=== PATIENT | female | born 1975 | race Caucasian/White ===

== ENCOUNTER 2017-09-29 05:51 | Day surgery (SDC) | payer OTHER, SELFPAY ==
[2017-09-25 15:22] LABS: Hematocrit 40.5 % (37-47); Hemoglobin 13.9 g/dl (12.0-15.0); Mean Corp Hgb Conc 34.3 g/gl (32-36); Mean Corpuscular Hgb 31.1 pg (27.0-32.0); Mean Corpuscular Volume 90.6 fL (81-99); Mean Platelet Vol. 11.2 fl (6.2-12.0); Platelet Count 184 K/mm3 (150-450); RBC Distribution Width SD 39.1 fl (35.1-43.9); Red Blood Count 4.47 M/mm3 (4.2-5.4); White Blood Count 5.7 K/mm3 (4.4-11.0)
[2017-09-25 15:56] LABS: Pregnancy, Serum, hCG Quali. NEGATIVE Negative (0-9 Nonpreg)
[2017-09-25 16:08] LABS: Scan Indicated on CBC? Y/N NO
--- NOTE | 2017-09-28 22:07 | HP.PCM_ITS ---
History and Physical Date of Admission: 09/29/17 Surgical History and Physical Sheeba Rose, a 42 year old female 2 0 1 0 2, presents for HTA, Hysteroscopy and D and C on September 29, 2017 at 7:30. -- Heavy Menses -- Menses have been getting heavier and heavier. Wants to proceed with ablation if this is an option. Recent TFTs were normal. Recent EMBx and U/S OK. MEDICATIONS HISTORY: Patient is also takin. Dexilant 60 mg capsule, delayed release, 1 PO QD ALLERGIES: NKA Infections - Chicken pox childhood Illnesses - mitral valve prolapse Accidents - no injuries of consequence Hospitalizations - Childbirth ; Review of Systems: GENERAL - Denies fever, or chills SKIN - Denies skin changes EYES - Denies visual changes EARS - Denies difficulty hearing NOSE - Denies nasal congestion or bleeding MOUTH - Denies sore throat or difficulty swallowing NECK - Denies pain or swelling RESPIRATORY - Denies shortness of breath or wheezing CARDIOVASCULAR - Denies palpitations or chest pain GASTROINTESTINAL - Denies nausea, vomiting, diarrhea, constipation GENITOURINARY - Denies dysuria, frequency of urination, incontinence of urine MUSCULOSKELETAL - Denies joint or muscle pain NEUROLOGICAL - Denies localized numbness or weakness PSYCHIATRIC - Denies depression or anxiety ENDOCRINE - Denies heat or cold intolerance, weight loss or gain HEMATO-IMMUNOLOGIC - Denies excessive bleeding with cuts SOCIAL HISTORY: Alcohol Use - denies use Smoking - denies use Diet - balanced Diet Lifestyle - Exercise - regular Seat Belt Use - always 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. 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 Sibling(s): Multiple Births. Father: Heart Disease and MA. Maternal Grandmother: DM II. MENSTRUAL HISTORY: LMP Known?- DefiniteAmount/Duration - 4-5 DAYS, Regularity - Regular, Frequency - 28 days, LMP - 09/16/17, Age Onset Menarche - 13 PAST PREGNANCIES: Total Pregnancies - 3; Full Term Pregnancies - 2; Premature - 0; Abortions, Induced - 0; Abortions, Spontaneous - 1; Ectopics - 0; Multiple Births - 0; Living Children - 2 SURGICAL HISTORY: 1. 10/02/2000 Exp. Lap. ; - Endometriosis 2. 04/16/2002 Suction D ; Patria Elder M.D. - Missed Ab 3. 04/16/2005 R C/S ; Patria Elder M.D. - repeat 4. 03/17/2003 ; Patria Elder M.D. - PHYSICAL EXAM BP- 124/62 Sitting, Right arm, regular cuff Weight- 158.27635 lbs Height- 65.00 inch BMI:26.35 CONSTITUTIONAL - NAD, well nourished, and well developed SKIN - No rash, lesions, or ulcers HEENT - Normocephalic, PERRLA, EOMI NECK - No nodes, no nuchal rigidity and thyroid normal size and texture LYMPH NODES - Palpation of lymph nodes in neck and groins within normal limits LUNGS - CTA x2 without wheezes, crackles or rales CARDIAC - Regular rate and rhythm without rubs, murmurs, or gallops BREAST - No dominant masses, no tenderness, no axillary adenopathy, no nipple discharge, no skin changes ABDOMEN - Without hepatosplenomegaly, distention, masses, rebound, or guarding; normal bowel sounds; no hernias EXTREMITIES - No edema or calf tenderness NEUROLOGICAL - Cranial nerves II-XII grossly intact PSYCHIATRIC - A and O to time, place, person, mood and affect External Genital Vagina - non-tender without lesions Urethra/Urethral Meatus - non-tender Bladder - non-tender Vagina - vaginal lópez are pink and moist without loss of rugae and no evidence of atropy Cervix - without cervical motion tenderness and has normal size and features without evident lesions Uterus - 5-6 cm in size, mobile and nontender Adnexa - clear without masses or tenderness Pap - done -- Reflex to ASCUS, LSIL, KARRIE ASSESSMENT/PLAN:Menorrhagia Denies bleeding between menses. Pelvic u/s and EMBx ok. Discussed RBAs and all questions answered.
[2017-09-29 06:20] VITALS: BP 128/75; PULSE 78; RESP 16; TEMP 36.6; O2SAT 100; BMI 25.8
--- NOTE | 2017-09-29 07:30 | EMB_PTH ---
PATIENT: YOANDY GATES [place] [facility] [place][id number] AGE/SX: 42/F ROOM: RE09/29/[address]: Dr. Osmar Vee MD : 1975 BED: DIS: 09/29/2017 SPEC #: [id number] RECD: 09/29/17 10:05 STATUS: PAUL RADHA #: [id number] MARAH: 09/29/17 07:[address]: Osmar Vee DEPT: SURGICAL PATHOLOGY RECD BY: Yasir Torres ENTERED: 09/29/17 10:06 SP TYPE: ENDOM BX/C KARMA DR: Dr. Gustabo Cummins, DO Tissues: Endometrium, NOS Procedures: Surgery Specimen Level IV HEADER OPERATION: Hysteroscopy, dilation and curettage, hydrothermal ablation PRE-OP DIAGNOSIS: Menorrhagia TISSUE SUBMITTED: Endometrial curettings MICROSCOPIC DIAGNOSIS Endometrial curettings: Mildly disordered proliferative endometrium. SJ:yoav 2/27/18 COMMENT Please make reference to previous specimen ([id number]) endometrium, biopsy with diagnosis of secretory endometrium. MICROSCOPIC DESCRIPTION Slides are reviewed. GROSS DESCRIPTION Received in fixative is one container labeled with the patient's name and designated endometrial curettings. The specimen consists of multiple fragments of hemorrhagic soft tissue mixed with mucoid tissue that in aggregate measure 4 x 3 x 0.2 cm. The entire specimen is submitted in two cassettes. / SJ:rg 09/29/17 TC:5 CPT: 96959
--- NOTE | 2017-09-29 07:40 | OP.PCM_ITS ---
Operative Report Date of Procedure: 09/29/17 Surgeon: Osmar Vee MD, FACOG Anesthesia: Susanne Trinidad CRNA Type of anesthesia: General LMA Procedure: Diagnostic Hysteroscopy, Dilation and Curettage, Hydrothermal Ablation Pre-op: Menorrhagia Post-Op: Menorrhagia Findings: 8 cm EM cavity with normal appearing endometrium without polyps or fibroids noted Indication: This is a 42 year old patient who has been having problems with extremely heavy menses. Conservative measures have not been helpful. Endometrial sampling was benign and pelvic ultrasound showed that ablation may be helpful. Pt has been counseled regarding the risks, benefits and alternatives of this procedure and all questions answered. She understands that only about half of patients will have amenorrhea after this procedure. Procedure: Patient taken to the operating room where after induction of general anesthesia the patient was prepped and draped in the usual sterile fashion. Bladder was drained of urine with a catheter. Anterior cervix grasped and cervix was dilated to about 17 Serbian size. Hysteroscopic hydrothermal ablation (HTA) unit was place in the cervix and the above findings were noted. HTA unit was removed and the uterus was gently curretted removing all contents. An HTA ablation cycle was then carried out at about 90 degrees Centigrade for 10 minutes with virtually no fluid loss during the procedure. After an appropriate cool down the HTA unit was removed with minimal bleeding noted. The patient tolerated the procedure well and was taken to the recovery room in satisfactory condition. Sponge, instruments and needle counts were all correct. There were no apparent complications of the surgery. Cefotan 2 gms IV was given prior to the procedure. Estimated Blood Loss: Minimal Specimen to Pathology: Endometrial Curettings
--- NOTE | 2017-09-29 07:41 | PCM.DC.D&C ---
Discharge Diet: No Restrictions Discharge Activity: Return to Normal Activity, May Shower, May Take a Tub Bath Call your doctor if you observe: Fever of 101 or Higher, Inability to urinate, Inability to have a bowel movement, Using more than one pad per hour Allergies/Adverse Reactions: Allergies No Known Allergies Allergy (Verified 09/22/17 14:01) Medications to take at Discharge Dexlansoprazole [Dexilant] 60 mg PO LUNCH 09/22/17 Oxycodone [Oxyir] 5 mg PO Q6H PRN PRN 7 Days #10 tab 09/29/17 The following prescriptions were given: Oxycodone [Oxyir] 5 mg PO Q6H PRN PRN 7 Days #10 tab PRN Reason: Severe Pain (-05/13) Primary Care Physician: Gustabo Cummins DO [Primary Care Provider] - Please Follow Up With: Osmar Vee MD When: 2-3 weeks
[2017-09-29 08:23] VITALS: BP 128/75; BP 128/88; PULSE 64; RESP 18; TEMP 36.1; O2SAT 100
[2017-09-29 08:30] VITALS: BP 115/81; BP 128/75; PULSE 79; RESP 18; O2SAT 95
[2017-09-29 08:45] VITALS: BP 122/84; BP 128/75; PULSE 82; RESP 18; O2SAT 98
[2017-09-29 08:55] VITALS: BP 124/88; BP 128/75; PULSE 64; RESP 18; TEMP 36.1; O2SAT 100
[2017-09-29 09:48] VITALS: BP 128/75
== END 2017-09-29 10:10 | disposition home or self-care (01) ==
LOC: SDC 05:54 → AC 05:54
PROVIDERS: Family Provider Family Medicine; PCP Family Medicine; Visit Provider Obstetrics & Gynecology
PROC: 0U5B8ZZ Destruction of Endometrium, Via Natural or Artificial Opening Endoscopic (ICD-10-PCS; CPT 58563; principal; 2017-09-29 07:15)
DX: N85.01 Benign endometrial hyperplasia (principal); N85.8 Other specified noninflammatory disorders of uterus; N92.0 Excessive and frequent menstruation with regular cycle; K21.9 Gastro-esophageal reflux disease without esophagitis; I34.1 Nonrheumatic mitral (valve) prolapse
CPT/HCPCS: 58563; 36415; 84703; 85027; 86850; 86900; 88305; J7120; J2405

== ENCOUNTER → 2017-10-02 16:31 | Outpatient (CLI) | payer OTHER, SELFPAY ==
[2017-10-02 18:54] LABS: CRP < 2.90 mg/L (0.0-3.0); Rheumatoid Factor < 10.0 IU/mL (<15)
[2017-10-02 18:56] LABS: Erythrocyte Sedimentation Rate 5 mm/hr (0-20)
[2017-10-06 14:20] LABS: ANTINUCLEAR ANTIBODIES DIRECT Positive (Negative)
[2017-10-09 14:13] LABS: HLA B27 Positive (.)
== END ==
PROVIDERS: Family Provider Family Medicine; PCP Family Medicine; Visit Provider Family Medicine
DX: H20.9 Unspecified iridocyclitis (principal)
CPT/HCPCS: 36415; 81374; 85652; 86038; 86140; 86431

== ENCOUNTER → 2018-01-05 10:47 | Outpatient (CLI) | payer OTHER, SELFPAY ==
--- NOTE | 2018-01-05 10:47 | DT_ITS ---
This patient was seen during an EMR downtime January 05, 2018 - January 12, 2018. This patient may have a combination of paper and electronic documentation or all paper documentation. All documentation is viewable within the e-chart portion of [facility] for each patient visit.
== END ==
PROVIDERS: Family Provider Family Medicine; PCP Family Medicine; Visit Provider Internal Medicine Rheumatology
DX: R76.8 Other specified abnormal immunological findings in serum (principal); Z79.899 Other long term (current) drug therapy
CPT/HCPCS: 36415; 83516; 86038; 86200; 86225; 86235; 86376; 86800

== ENCOUNTER → 2018-01-22 12:07 | Outpatient (CLI) | payer OTHER, SELFPAY ==
[2018-01-23 14:09] LABS: SJOGREN'S Anti-SS-A test < 0.2 AI (0.0-0.9)
[2018-01-23 14:32] LABS: SJOGREN'S Anti-SS-B test < 0.2 AI (0.0-0.9)
== END ==
PROVIDERS: Family Provider Family Medicine; PCP Family Medicine; Visit Provider Internal Medicine Rheumatology
DX: R76.8 Other specified abnormal immunological findings in serum (principal); Z79.899 Other long term (current) drug therapy
CPT/HCPCS: 86235

== ENCOUNTER → 2018-02-03 11:12 | Outpatient (CLI) | payer OTHER, SELFPAY | PROVIDERS: Family Provider Family Medicine; PCP Family Medicine; Visit Provider Family Medicine | DX: R63.1 Polydipsia (principal) | CPT/HCPCS: 36415; 83036 ==

== ENCOUNTER → 2018-02-13 14:00 | Outpatient (CLI) | payer OTHER, SELFPAY ==
[2018-02-13 15:53] LABS: Vitamin B12 915 pg/mL (211-911); Vitamin D,25 Hydroxy 19.7 ng/mL (29.95-100.01)
[2018-02-13 17:10] LABS: Ferritin 18 ng/mL (8-252); Iron 72 ug/dL (50-170); Iron Binding Capacity,Total 392 ug/dL (250-450); PERCENT IRON SATURATION 18.4 % (15.0-55.0)
== END ==
PROVIDERS: Family Provider Family Medicine; PCP Family Medicine; Visit Provider Family Medicine
DX: H20.9 Unspecified iridocyclitis (principal); M35.1 Other overlap syndromes
CPT/HCPCS: 36415; 82306; 82607; 82728; 82746; 83540; 83550

== ENCOUNTER → 2018-02-19 12:06 | Outpatient (CLI) | payer OTHER, SELFPAY ==
[2018-02-27 11:04] LABS: ACHR AB Modulating <12 % (0-20); ACHR Recep AB, Blocking 13 % (0-25); Acetylcholine Receptor Binding < 0.03 nmol/L (0.00-0.24)
== END ==
PROVIDERS: Family Provider Family Medicine; PCP Family Medicine; Visit Provider Psychiatry & Neurology Neurology
DX: R53.1 Weakness (principal)
CPT/HCPCS: 36415; 83519; 84238

== ENCOUNTER → 2018-03-04 14:55 | Outpatient (CLI) | payer OTHER, SELFPAY ==
--- NOTE | 2018-03-04 15:12 | MRI_ITS ---
STUDY: MRI THORACIC SPINE WITH AND WITHOUT CONTRAST REASON FOR EXAM: Female, 43 years old. Possible multiple sclerosis TECHNIQUE: 7 ml of Gadavist was administered intravenously for the contrast portion of the examination. COMPARISON: None. FINDINGS: Normal kyphosis of the thoracic spine. There is no substantial scoliosis. T1-2, T2-3, T3-4, T4-5, T5-6, T6-7, T7-8, T8-9, T9-10, T10-11, T11-12: Normal endplates. Normal disc hydration, heights and morphology of the corresponding intervertebral discs. Normal central canal and intervertebral neural foramina at the corresponding levels. Normal visualized thoracic cord. Normal conus medullaris that terminates at the . The soft tissue structures are unremarkable. There is no enhancing abnormality. MRI/Spine Thoracic W/WO Contrast IMPRESSION: Normal unenhanced and enhanced MRI examination of the thoracic spine. Electronically Signed: Marco Carias MD at 19:44 EDT , Service support ,
--- NOTE | 2018-03-04 15:12 | MRI_ITS ---
STUDY: MRI BRAIN WITH AND WITHOUT CONTRAST REASON FOR EXAM: Female, 43 years old. Optic neuritis facial numbness possible multiple sclerosis TECHNIQUE: Standardized multiplanar fat and water weighted pulse sequences were obtained. 7 ml of Gadavist contrast material was administered intravenously for the contrast portion of the examination. COMPARISON: None. FINDINGS: Normal size of the ventricles and extra-axial spaces for the patient's age. There are a couple of scattered tiny punctate white matter lesions bilaterally without mass effect or restricted diffusion. This could represent ischemic changes secondary to small vessel disease in patient of this age however demyelinating disease such as multiple sclerosis is not excluded Normal bilateral basal ganglia. Normal thalami. There is no extra-axial fluid accumulation. Normal flow voids within the major intracranial circulation suggesting patency by spin echo criteria. Normal venous enhancement. There is no enhancing intra-axial or extra-axial abnormality. Normal sella turcica, pituitary gland, infundibular stalk, optic chiasm and hypothalamus. Normal tectal plate and pineal gland. Normal midbrain, shana and medulla. Normal cerebellum. Normal basal cisterns. Normal bilateral temporal bones. Normal bilateral internal auditory canals. No demonstrated orbital abnormality, within the constraints of a routine brain study. Small mucous retention cyst in left maxillary sinus and mild bilateral ethmoid sinus disease Normal calvarium and skull base. Normal visualized soft tissue structures. Normal visualized upper cervical spine. MRI/Brain W/WO Contrast IMPRESSION: There are a couple of scattered tiny punctate white matter lesions bilaterally without mass effect or restricted diffusion. This is nonspecific in etiology but may be consistent with demyelinating disease such as multiple sclerosis. There are no enhancing plaques to suggest acute demyelination Electronically Signed: Marco Carias MD at 20:48 EDT , Service support ,
--- NOTE | 2018-03-04 15:12 | MRI_ITS ---
STUDY: MRI LUMBAR SPINE WITH AND WITHOUT CONTRAST REASON FOR EXAM: Female, 43 years old. Facial numbness and tingling TECHNIQUE: Standardized fat and water weighted pulse sequences were obtained in the sagittal and axial planes. 7 ml of Gadavist contrast material was administered for the contrast portion of the examination. COMPARISON: None FINDINGS: T12-L1: Normal endplates. Normal disc height, hydration and morphology. Normal bilateral facet joints. Normal central canal and bilateral lateral recesses. Normal bilateral intervertebral neural foramina. Normal lumbar lordosis. There is no substantial scoliosis. Normal conus medullaris that terminates at T12-L1 L1-2: Normal endplates. Normal disc height, hydration and morphology. Normal bilateral facet joints. Normal central canal and bilateral lateral recesses. Normal bilateral intervertebral neural foramina. L2-3: Normal endplates. Normal disc height, hydration and morphology. Normal bilateral facet joints. Normal central canal and bilateral lateral recesses. Normal bilateral intervertebral neural foramina. L3-4: Normal endplates. Normal disc height, hydration and minor annular bulge.. Mild facet arthropathy. Normal central canal. Minor bilateral recess encroachment.. Normal bilateral intervertebral neural foramina. L4-5: Normal endplates. Normal disc height, hydration and minimal annular bulge.. Bilateral facet arthropathy.. Normal central canal. Mild bilateral recess encroachment. Normal bilateral intervertebral neural foramina. L5-S1: Normal endplates. Normal disc height, desiccation and minimal annular bulge with small central annular tear and disc protrusion.. Bilateral facet arthropathy. Normal central canal and bilateral lateral recesses. Normal bilateral intervertebral neural foramina. Normal visualized sacral ala. Normal visualized paraspinous soft tissue structures. MRI/Spine Lumbar W/WO Contrast IMPRESSION: Small central disc protrusion at L5-S1 with mild facet arthropathy but no significant spinal stenosis Mild spinal stenosis at L3-4 and L4-5 secondary to minor bulging annuli and facet arthropathy Electronically Signed: Marco Carias MD at 22:29 EDT , Service support ,
--- NOTE | 2018-03-04 15:12 | MRI_ITS ---
STUDY: MRI CERVICAL SPINE WITH AND WITHOUT CONTRAST REASON FOR EXAM: Female, 43 years old. Possible multiple sclerosis TECHNIQUE: Standardized fat and water weighted pulse sequences were obtained in the sagittal and axial following I.V. administration of 7 ml of Gadavist contrast material. COMPARISON: None FINDINGS: Normal foramen magnum and brainstem-cervical cord junction. Normal craniovertebral junction. Normal anterior atlantoaxial articulation. Normal odontoid process. Normal cervical lordosis. Normal vertebral bodies and posterior osseous elements. C2-3: Normal endplates. Normal disc height, signal and morphology. Normal central canal and intervertebral neural foramina. C3-4: Normal endplates. Normal disc height, signal and morphology. Normal central canal and intervertebral neural foramina. C4-5: Normal endplates. Normal disc height, signal and morphology. Normal central canal and intervertebral neural foramina. C5-6: Normal endplates. Mildly narrowed disc height, normal signal and moderate sized central/right paracentral disc protrusion in association with tiny left posterolateral disc/osteophyte protrusion. There is narrowing of the spinal canal and mild impingement upon ventral surface of the thecal sac and cord.. There is mild to moderate left neural foraminal encroachment C6-7: Normal endplates. Normal disc height, signal and minor bulging of the disc in association with prominent left posterolateral/foraminal disc protrusion. There is mild narrowing of the central canal. Severe left neuroforaminal stenosis C7-T1: Normal endplates. Normal disc height, signal and morphology. Normal central canal and intervertebral neural foramina. Normal cervical cord. Normal visualized soft tissue structures. MRI/Spine Cervical W/WO Contrast IMPRESSION: Mild spondylosis and spinal stenosis at C5-6 and C6-7 secondary to disc disease and bony hypertrophy with findings as above No focal lesions within the cord. Electronically Signed: Marco Carisa MD at 19:52 EDT , Service support ,
== END ==
PROVIDERS: Family Provider Family Medicine; PCP Family Medicine; Visit Provider Family Medicine
DX: H46.9 Unspecified optic neuritis (principal)
CPT/HCPCS: 70553; 72156; 72157; 72158; A9585

== ENCOUNTER → 2018-03-24 06:46 | Outpatient (CLI) | payer OTHER, SELFPAY ==
--- NOTE | 2018-03-24 10:36 | NEURO ---
NCS and/or EMG Patient Report Ordering Doctor: Radha Gonzalez DATE OF SERVICE: 03/24/18 This is a bilateral upper extremity nerve conduction study and a left upper extremity EMG as well as paraspinal EMG performed on this 43-year-old female with numbness in her thumbs bilaterally beginning in January 2018. She has had an MRI of her entire neuraxis which she reports has been normal. There have been some positive rheumatologic tests however she tells me her rheumatologic space technologist does not feel that these are significant. Bilateral upper extremity sensory and motor nerve conduction study demonstrates mild prolongation of the median motor distal latencies with preservation of amplitude and conduction velocities the median sensory distal latencies are also mildly prolonged. Ulnar motor and sensory and radial sensory responses are normal. The median and ulnar F-wave latencies demonstrate mild prolongation of the median motor F wave latencies. Needle electromyography of left upper extremity is performed. Muscles evaluated included the first dorsal interosseous, abductor pollicis brevis, brachioradialis, biceps, triceps, deltoid, and left lower, middle and upper paraspinal muscles. All muscles demonstrated normal insertional activity with absence of pathologic spontaneous activity. Motor unit potential recruitment pattern and amplitude is normal in all muscles tested. 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 There is no evidence of radiculopathy or neuropathy otherwise.
--- NOTE | 2018-03-24 10:39 | NEURO_ITS ---
NCS and/or EMG Patient Report Ordering Doctor: Radha Gonzalez DATE OF SERVICE: 03/24/18 This is a bilateral upper extremity nerve conduction study and a left upper extremity EMG as well as paraspinal EMG performed on this 43-year-old female with numbness in her thumbs bilaterally beginning in January 2018. She has had an MRI of her entire neuraxis which she reports has been normal. There have been some positive rheumatologic tests however she tells me her rheumatologic optical design engineer does not feel that these are significant. Bilateral upper extremity sensory and motor nerve conduction study demonstrates mild prolongation of the median motor distal latencies with preservation of amplitude and conduction velocities the median sensory distal latencies are also mildly prolonged. Ulnar motor and sensory and radial sensory responses are normal. The median and ulnar F-wave latencies demonstrate mild prolongation of the median motor F wave latencies. Needle electromyography of left upper extremity is performed. Muscles evaluated included the first dorsal interosseous, abductor pollicis brevis, brachioradialis, biceps, triceps, deltoid, and left lower, middle and upper paraspinal muscles. All muscles demonstrated normal insertional activity with absence of pathologic spontaneous activity. Motor unit potential recruitment pattern and amplitude is normal in all muscles tested. 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 There is no evidence of radiculopathy or neuropathy otherwise.
== END ==
PROVIDERS: Family Provider Family Medicine; PCP Family Medicine; Visit Provider Clinical Nurse Specialist Acute Care
DX: M54.12 Radiculopathy, cervical region (principal); R29.898 Other symptoms and signs involving the musculoskeletal system
CPT/HCPCS: 95886; 95913

== ENCOUNTER → 2018-04-27 10:49 | Outpatient (CLI) | payer OTHER, SELFPAY ==
--- NOTE | 2018-04-27 10:52 | RAD_ITS ---
STUDY: X-RAY - PELVIS REASON FOR EXAM: Female, 43 years old. Inflammatory polyarthropathy TECHNIQUE: One view of the pelvis was obtained. COMPARISON: None. FINDINGS: There is a non-specific bowel gas pattern. Normal visualized soft tissue structures. Normal bilateral iliac wings, sacroiliac joints and visualized sacrum. Normal visualized bilateral superior and inferior pubic rami. Normal pubic symphysis. Normal ischial tuberosities. Normal visualized right femoral head. Normal right acetabulum. Normal right hip joint. Normal visualized left femoral head. Normal left acetabulum. Normal left hip joint. RAD/Pelvis 1 or 2 Views IMPRESSION: Normal x-ray examination of the pelvis. Electronically Signed: Trent Cade MD at 16:58 EDT , Service support ,
[2018-04-27 11:55] LABS: Absolute Lymphocyte Count 1.43 X10^3/ul (0.83-4.51); Absolute Neutrophil Count 3.6 X10^3/uL (2.0-7.7); Basophil# 0.01 X10^3/uL; Basophil% 0.2 % (0-1); Eosinophil# 0.12 X10^3/uL; Eosinophils% 2.2 % (0-5); Hematocrit 41.3 % (37-47); Hemoglobin 13.8 g/dl (12.0-15.0); Lymphocyte # 1.43 X10^3/ul (4.0); Lymphocyte % 26.1 % (19-41); Mean Corp Hgb Conc 33.4 g/gl (32-36); Mean Corpuscular Hgb 30.7 pg (27.0-32.0); Mean Corpuscular Volume 91.8 fL (81-99); Mean Platelet Vol. 11.3 fl (6.2-12.0); Monocyte# 0.34 X10^3/uL; Monocyte% 6.2 % (0-10); Neutrophil # 3.56 X10^3/uL (2.7-7.7); Neutrophil % 65.1 % (47-70); Platelet Count 192 K/mm3 (150-450); RBC Distribution Width CV 12.2 % (11.6-14.6); RBC Distribution Width SD 41.2 fl (35.1-43.9); White Blood Count 5.5 K/mm3 (4.4-11.0)
[2018-04-27 11:56] LABS: POSITIVE COUNT NO; POSITIVE DIFFERENTIAL NO; POSITIVE MORPHOLOGY NO
[2018-04-27 11:57] LABS: Color, Urine Straw (Yellow); Glucose, Dipstick Normal (Normal); Ketone-Dipstick Negative (Negative); Leukocyte Esterase-Dipstick Negative /ul (Negative); Nitrite-Dipstick Negative (Negative); Occult Blood-Urine Negative /ul (Negative); Protein-Dipstick Negative (Negative); Urine Bilirubin Dipstick Negative (Negative); Urine Clarity Sl. Cloudy (Clear); Urine Urobilinogen Normal (Normal); Urine pH 6.5 (5.0 - 8.0)
[2018-04-27 12:04] LABS: Erythrocyte Sedimentation Rate 2 mm/hr (0-20); Prothrombin Time (Protime)PT. 13.6 SECONDS (11.7-14.9)
[2018-04-27 12:05] LABS: Partial Thromboplast Time 32.6 Seconds (24.1-36.2)
[2018-04-27 12:10] LABS: Protein, Urine (Random) < 6.0 mg/dL (<11.9)
[2018-04-27 12:35] LABS: ALB/GLOB Ratio 1.1 RATIO (0.9-2.4); AST(SGOT) 19 U/L (15-37); Alanine Aminotransfer ALT/SGPT 24 U/L (13-56); Albumin, Serum 3.9 g/dL (3.2-5.0); Alkaline Phosphatase 49 U/L (45-117); Anion Gap 3 (5-15); BUN 15 mg/dL (7-18); BUN/Creat Ratio 18.7 RATIO (10-20); CRP < 2.90 mg/L (0.0-3.0); Calcium,Total 8.5 mg/dL (8.5-10.1); Chloride 106 mmol/L (98-107); EST Glomerular Filtration Rate 83 mL/min (>60); Est Glom Filt Rate - Afr Amer 100 mL/min (>60); Globulin 3.7 g/dL (2.2-4.2); Glucose 72 mg/dL (74-106); Potassium 3.7 mmol/L (3.5-5.1); Protein, Total 7.6 g/dL (6.4-8.2); Rheumatoid Factor < 10.0 IU/mL (<15); Sodium Level 138 mmol/L (136-145)
[2018-04-28 14:07] LABS: Anti-Centromere B Ab <0.2 AI (0.0-0.9); Anti-Jo <0.2 AI (0.0-0.9); Anti-Scleroderma-70 AB 1.2 AI (0.0-0.9); RNP Ab 1.6 AI (0.0-0.9); SJOGREN'S Anti-SS-A test < 0.2 AI (0.0-0.9); SJOGREN'S Anti-SS-B test < 0.2 AI (0.0-0.9); Smith Ab <0.2 AI (0.0-0.9)
[2018-04-29 03:07] LABS: Complement C3 119 mg/dL (82-167); Dilute Prothrombin Time (dPT) 45.9 sec (0.0-55.0); Dilute Russell Viper Venom 35.8 sec (0.0-47.0); Hexagonal Phase Phospholipid 2 sec (0-11); PTT-LA 36.4 sec (0.0-51.9); Thrombin Time 18.6 sec (0.0-23.0); Thrombin Time 18.7 sec (0.0-23.0); dPT Confirm Ratio 0.99 Ratio (0.00-1.40)
[2018-04-29 09:10] LABS: CCP IgG Antibodies 5 units (0-19); HEPATITIS B SURFACE AG Negative (Negative); Hep B Surface Antibodies Reactive (.); Hep C Antibodies <0.1 s/co ratio (0.0-0.9); Interpretation Comment: (.)
[2018-04-29 09:19] LABS: ANTINUCLEAR ANTIBODIES DIRECT Positive (Negative); Anti-dsDNA Ab 3 IU/mL (0-9)
== END ==
PROVIDERS: Family Provider Family Medicine; PCP Family Medicine; Visit Provider Internal Medicine Rheumatology
DX: M06.4 Inflammatory polyarthropathy (principal); M35.1 Other overlap syndromes; K21.9 Gastro-esophageal reflux disease without esophagitis; Q66.7 Congenital pes cavus; H20.12 Chronic iridocyclitis, left eye
CPT/HCPCS: 36415; 72170; 80053; 81002; 82570; 84156; 85025; 85598; 85610; 85652; 85670; 85730; 86038; 86140; 86160; 86200; 86225; 86235; 86431; 86706; 86803; 87340

== ENCOUNTER → 2018-08-20 07:14 | Outpatient (CLI) | payer OTHER, SELFPAY ==
--- NOTE | 2018-08-20 07:16 | BI_ITS ---
MAMMOGRAPHY - BILATERAL SCREENING REASON FOR EXAM: Female, 43 years old. Routine annual screening examination. PERTINENT HISTORY: Grandmother with breast cancer. Aunt with breast cancer. TECHNIQUE: Digital bilateral breast jessa (3D mammographic acquisition) in the CC and MLO projections. 2-D mediolateral oblique (MLO) and craniocaudad (CC) views of both breasts were obtained. CAD: Full Field Digital Mammography with Computer Added Detection was performed. COMPARISON: Comparison is made with prior study dated August 19, 2017 and June 07, 2016. FINDINGS: Breast Composition: There are scattered areas of fibroglandular density. There are no dominant masses or suspicious calcifications. No other significant abnormalities are identified. There has been no significant change since the prior study. BI/SCREENING MAMM (CAD), BILAT IMPRESSION: Stable bilateral screening mammogram. Yearly follow-up mammogram recommended. (A) ASSESSMENT CATEGORY: BIRADS Category 1: Negative. A letter regarding these results will be sent to the patient by the facility within 30 days. Approximately 10% of breast cancers are not detected by mammography. A normal mammogram should not delay biopsy of a clinically suspicious abnormality. [id number] Electronically Signed: Victorino Qureshi MD at 10:12 EST Tel [phone], Service support ,
--- OUTSIDE RECORDS SUMMARY | 2018-10-24 19:43 | XMS RPT_ITS ---
:1975 Author Organization [place] Support Name Relationship Address Phone KODYWILIAN Unavailable [address] + [place] [address] WC Unavailable [address] + [place] [address] WILIAN ROSE Unavailable [address] + [place] [address] [facility] Unavailable [address] + [place] [address] WILIAN ROSE Unavailable [address] + [place] [address] [facility] Unavailable [address] + [place] [address] WILIAN ROSE Unavailable [address] + [place] [address] [facility] Unavailable [address] + [place] [address] WILIAN ROSE Unavailable [address] + [place] [address] [facility] Unavailable [address] + [place] [address] WILIAN ROSE Unavailable [address] + [place] [address] [facility] Unavailable [address] + [place] [address] WILIAN ROSE Unavailable [address] + [place] [address] [facility] Unavailable [address] + [place] [address] WILIAN ROSE Unavailable [address] + [place] [address] [facility] Unavailable [address] + [place] [address] DANIELEKaylanWILIAN Unavailable [address] + [place] [address] [facility] Unavailable [address] + [place] [address] DANIELEKaylanWILIAN Unavailable [address] + [place] [address] WC Unavailable [address] + [place] [address] KODYWILIAN Unavailable [address] + [place] [address] [facility] Unavailable [address] + [place] [address] KODYWILIAN Unavailable [address] + [place] [address] WC Unavailable [address] + [place] [address] WILIAN ROSE Unavailable [address] + [place] [address] WC Unavailable [address] + [place] [address] DANIELEKaylanWILIAN Unavailable [address] + [place] [address] WC Unavailable [address] + [place] [address] DANIELEKaylanWILIAN Unavailable [address] + [place] [address] WC Unavailable [address] + [place] [address] Care Team Providers Name Role Phone Osmar Vee Attending Unavailable Osmar Vee Referring Unavailable Malys, Lesli Primary Care Unavailable Lesli Burnham Attending Unavailable Malys, Lesli Primary Care Unavailable Malys, Lesli Referring Unavailable Osmar Vee Attending Unavailable Osmar Vee Referring Unavailable Gustabo Cummins Primary Care Unavailable Candelario Tang Attending Unavailable Placido, Gustabo Referring Unavailable Placido, Gustabo Primary Care Unavailable Malys, Lesli Attending Unavailable Placido, Gustabo Primary Care Unavailable Malys, Lesli Referring Unavailable Vellanki, Arianna Attending Unavailable Vellanki, Arianna Referring Unavailable Malys, Lesli Primary Care Unavailable REBA, LELA Attending Unavailable BRITTON, LELA Referring Unavailable Placido, Gustabo Primary Care Unavailable REBA, LELA Attending Unavailable BRITTON, LELA Referring Unavailable Placido, Gustabo Primary Care Unavailable Malys, Lesli Attending Unavailable Malys, Lesli Referring Unavailable Malys, Lesli Primary Care Unavailable ASSESSMENT, HEALTH RISK Attending Unavailable ASSESSMENT, HEALTH RISK Referring Unavailable Malys, Lesli Primary Care Unavailable Malys, Lesli Attending Unavailable Malys, Lesli Referring Unavailable Malys, Lesli Primary Care Unavailable Ernesto, Mustapha S. Attending Unavailable Ernesto, Mustapha S. 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, Community unspecified / Hospital E55.9(ICD-10) Repository 04/27/2018 Unknown 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, 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 / Community M35.1(ICD-10) Hospital Repository 04/27/2018 Unknown L21.9 - Seborrheic Vellanki, Arianna Active [facility] dermatitis, Community unspecified / Hospital L21.9(ICD-10) Repository 04/27/2018 Unknown 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, 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 / Community Q66.7(ICD-10) Hospital Repository 04/27/2018 Unknown 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, 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, left Community eye / H20.12(ICD-10) Hospital Repository 03/05/2018 Unknown R53.1 - Weakness / Ernesto, Active [facility] R53.1(ICD-10) [facility] Hospital Repository 02/13/2018 Unknown 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, Lesli Active [facility] iridocyclitis / [facility] H20.9(ICD-10) Hospital Repository 02/03/2018 Unknown R63.1 - Polydipsia / Malys, Lesli Active [facility] R63.1(ICD-10) [facility] Hospital Repository 01/28/2018 Unknown R76.8 - Other LELA BRITTON Active [facility] specified abnormal [facility] findings in serum / Repository R76.8(ICD-10) 09/29/2017 Unknown G89.18 - Other acute Osmar Vee Active [facility] postprocedural pain [facility] / G89.18(ICD-10) Hospital Repository PROCEDURES PROCEDURES No Procedure Records FoundRESULTS RESULTS CBC W/DIFF, AUTOMATED Collected: 08/28/2018 Status: F Source: [place] 7:20 AM [facility] REPOSITORY TYPE CODE TESTS RESULT OUT OF RANGE REFERENCE UNITS LAB L100.1000 4.4-11.0 K/mm3 Normal WBC 4.8 LAB L100.1200 4.2-5.4 M/mm3 Normal RBC 4.43 LAB L100.1300 12.0-15.0 g/dl Normal HGB 13.7 LAB L100.1400 37-47 % Normal HCT 41.1 LAB L100.1500 81-99 fL Normal MCV 92.8 LAB L100.1600 27.0-32.0 pg Normal MCH 30.9 LAB L100.1700 32-36 g/gl Normal MCHC 33.3 LAB L100.1810 11.6-14.6 % Normal RDW CV 12.2 LAB L100.1820 35.1-43.9 fl Normal RDW SD 41.3 LAB L100.1900 150-450 K/mm3 Normal PLT 174 LAB L100.2000 6.2-12.0 fl Normal MPV 11.3 LAB L100.2100 47-70 % Normal NEUT% 60.5 LAB L100.2200 19-41 % Normal LY% 30.1 LAB L100.2300 0-10 % Normal MONO% 7.3 LAB L100.2400 0-5 % Normal EO% 1.7 LAB L100.2500 0-1 % Normal BASO% 0.4 LAB L100.2550 0.0-0.9 % Normal IM GRAN % 0.000 Result Comment: IG% - Immature Granulocytes (promyelocytes, myelocytes and metamyelocytes) > 1% indicates that a LEFT SHIFT is Present. LAB L100.2620 2.0-7.7 X10 3/uL Normal Absolute Neut 2.9 LAB L100.2720 0.83-4.51 X10 3/ul Normal Absolute Lymph 1.45 Performed By: #### L100.0100 #### [facility] [address] [place], [address] URINALYSIS, ROUTINE Collected: 08/28/2018 Status: F Source: [place] ([place]) 7:20 AM [facility] REPOSITORY Order Comment: How was Urine Obtained? CLEAN CATCH TYPE CODE TESTS RESULT OUT OF RANGE REFERENCE UNITS LAB L400.3000 Yellow COLOR Normal Yellow LAB L400.3050 Clear Normal CLARITY Sl. Cloudy LAB L400.3200 Normal mg/dl Normal GLUCOSE, UR Normal LAB L400.3300 Negative mg/dL Normal BILIRUBIN URINE Negative LAB L400.3400 Negative mg/dl Normal KETONE UR Negative LAB L400.3465 1.002-1.030 Normal SP.GR. DIPSTX 1.010 LAB L400.3550 5.0 - 8.0 pH UR Normal 7.0 LAB L400.3600 Negative mg/dl PROT Normal DIPSTX Negative LAB L400.3700 Normal mg/dl Normal UROBILI Normal LAB L400.3750 Negative Normal NITRITE UR Negative LAB L400.3780 Negative /ul Normal OCCULT BLOOD-UR Negative LAB L400.3800 Negative /ul High LEUK 25 ESTERASE Performed By: #### L400.2010 #### [facility] [address] [place], [address] PROTEIN+CREATININE Collected: Status: F Source: [place] RATIO,URINE 08/28/2018 7:20 AM [facility] REPOSITORY TYPE CODE TESTS RESULT OUT OF RANGE REFERENCE UNITS LAB L501.1200 NO RANGE EST. mg/dL Normal UR CREAT 236.00 LAB L501.1930 <11.9 mg/dL High 26.5 PROTEIN,UR.R AN. LAB L501.1940 0-200 mg/g CRE Normal PROT:CRE 112 RATIO Performed By: #### L501.0900 #### [facility] [address] [place], [address] COMPREHENSIVE METABOLIC Collected: 08/28/2018 Status: F Source: [place] 7:20 AM [facility] REPOSITORY TYPE CODE TESTS RESULT OUT OF RANGE REFERENCE UNITS LAB L501.0100 74-106 mg/dL Normal GLU 77 Result Comment: Please note revised GLUCOSE reference range effective 2017. LAB L501.1000 7-18 mg/dL Normal BUN 13 LAB L501.1100 0.55-1.02 mg/dL Normal CREAT,SERUM 0.92 Result Comment: The validity of the calculated GFR AND GFRAA in patients over 70 years has not been determined. Clinical correlation is essential. LAB L501.1110 >60 mL/min Normal EST GFR 71 Result Comment: Non- GFR Calc LAB L501.1115 >60 mL/min Normal EST GFR - AA 86 Result Comment: GFR Calc LAB L501.1300 10-20 RATIO Normal BUN/CRE 14.2 LAB L501.1500 6.4-8.2 g/dL T Normal PROT 7.3 LAB L501.1800 3.2-5.0 g/dL Normal ALB 3.7 LAB L501.1950 2.2-4.2 g/dL Normal GLOB 3.6 LAB L501.2000 0.9-2.4 RATIO Normal A/G 1.0 LAB L501.2200 8.5-10.1 mg/dL Low CA 8.4 LAB L501.4100 15-37 U/L Low AST 10 LAB L501.4305 45-117 U/L Low ALK P 43 LAB L501.4405 13-56 U/L Normal ALT 19 LAB L501.4600 0.20-1.00 mg/dL T Normal BILI 0.50 LAB L501.5300 136-145 mmol/L NA Normal 142 LAB L501.5600 3.5-5.1 mmol/L K Normal 3.7 LAB L501.5900 98-107 mmol/L High CL 108 LAB L501.6100 21.0-32.0 mmol/L Normal CO2 26.0 LAB L501.6200 5-15 Normal GAP 8 Performed By: #### L500.4050 #### [facility] [address] [place], [address] VITAMIN D,25 HYDROXY Collected: 08/21/2018 Status: F Source: [place] 7:41 AM [facility] REPOSITORY TYPE CODE TESTS RESULT OUT OF RANGE REFERENCE UNITS LAB L506.1000 29.95-100.01 ng/mL Normal Vitamin D 87.0 25-OH Result Comment: Vitamin D 25(OH) Status Range Deficiency <20 ng/mL (50nmol/L) Insuffciency 20 - 30 ng/mL (50 - 75 nmol/L) Sufficiency 30 - 100 ng/mL (75 - 250 nmol/L) Toxicity >100 ng/mL (>250 nmol/L) Performed By: #### L506.1000 #### [facility] [address] [place], [address] SCREENING MAMM (CAD), Observed: 08/20/2018 Status: F Source: [place] BILAT 7:16 AM [facility] REPOSITORY [facility] [address] [place] [address] SCREENING MAMM (CAD), BILAT MR#: [id number] Acct: [id number] Name: YOANDY ROSE Rep #: [id number] : 1975 F 43 From: Victorino Qureshi MD PCP: Lesli Burnham DO Status: [facility] Study: SCREENING MAMM (CAD), BILAT Date of Exam: 08/20/18 Exam# [id number] Ordering Dr: Osmar Vee MD MAMMOGRAPHY - BILATERAL SCREENING REASON FOR EXAM: Female, 43 years old. Routine annual screening examination. PERTINENT HISTORY: Grandmother with breast cancer. Aunt with breast cancer. TECHNIQUE: Digital bilateral breast jessa (3D mammographic acquisition) in the CC and MLO projections. 2-D mediolateral oblique (MLO) and craniocaudad (CC) views of both breasts were obtained. CAD: Full Field Digital Mammography with Computer Added Detection was performed. COMPARISON: Comparison is made with prior study dated August 19, 2017 and June 07, 2016. FINDINGS: Breast Composition: There are scattered areas of fibroglandular density. There are no dominant masses or suspicious calcifications. No other significant abnormalities are identified. There has been no significant change since the prior study. BI/SCREENING MAMM (CAD), BILAT IMPRESSION: Stable bilateral screening mammogram. Yearly follow-up mammogram recommended. (A) ASSESSMENT CATEGORY: BIRADS Category 1: Negative. A letter regarding these results will be sent to the patient by the facility within 30 days. Approximately 10% of breast cancers are not detected by mammography. A normal mammogram should not delay biopsy of a clinically suspicious abnormality. [id number] Electronically Signed: Victorino Qureshi MD at 10:12 EST Tel [phone], Service support , CC: Osmar Vee MD; Lesli Burnham DO Manager Mission: Signed CBC W/DIFF, AUTOMATED Collected: 04/27/2018 Status: F Source: [place] 10:54 AM [facility] REPOSITORY TYPE CODE TESTS RESULT OUT OF RANGE REFERENCE UNITS LAB L100.1000 4.4-11.0 K/mm3 Normal WBC 5.5 LAB L100.1200 4.2-5.4 M/mm3 Normal RBC 4.50 LAB L100.1300 12.0-15.0 g/dl Normal HGB 13.8 LAB L100.1400 37-47 % Normal HCT 41.3 LAB L100.1500 81-99 fL Normal MCV 91.8 LAB L100.1600 27.0-32.0 pg Normal MCH 30.7 LAB L100.1700 32-36 g/gl Normal MCHC 33.4 LAB L100.1810 11.6-14.6 % Normal RDW CV 12.2 LAB L100.1820 35.1-43.9 fl Normal RDW SD 41.2 LAB L100.1900 150-450 K/mm3 Normal PLT 192 LAB L100.2000 6.2-12.0 fl Normal MPV 11.3 LAB L100.2100 47-70 % Normal NEUT% 65.1 LAB L100.2200 19-41 % Normal LY% 26.1 LAB L100.2300 0-10 % Normal MONO% 6.2 LAB L100.2400 0-5 % Normal EO% 2.2 LAB L100.2500 0-1 % Normal BASO% 0.2 LAB L100.2550 0.0-0.9 % Normal IM GRAN % 0.200 Result Comment: IG% - Immature Granulocytes (promyelocytes, myelocytes and metamyelocytes) > 1% indicates that a LEFT SHIFT is Present. LAB L100.2620 2.0-7.7 X10 3/uL Normal Absolute Neut 3.6 LAB L100.2720 0.83-4.51 X10 3/ul Normal Absolute Lymph 1.43 Performed By: #### L100.0100, L101.9900 #### [facility] [address] [place], [address] ERYTHROCYTE SED RATE Collected: 04/27/2018 Status: F Source: [place] 10:54 AM [facility] REPOSITORY TYPE CODE TESTS RESULT OUT OF RANGE REFERENCE UNITS LAB L102.0000 0-20 mm/hr Normal SED RATE 2 Performed By: #### L100.0100, L101.9900 #### [facility] [address] [place], [address] URINALYSIS, ROUTINE Collected: 04/27/2018 Status: F Source: [place] (DIPST[place]) 10:54 AM [facility] REPOSITORY Order Comment: How was Urine Obtained? CLEAN CATCH TYPE CODE TESTS RESULT OUT OF RANGE REFERENCE UNITS LAB L400.3000 Yellow COLOR Normal Straw LAB L400.3050 Clear Normal CLARITY Sl. Cloudy LAB L400.3200 Normal mg/dl Normal GLUCOSE, UR Normal LAB L400.3300 Negative mg/dL Normal BILIRUBIN URINE Negative LAB L400.3400 Negative mg/dl Normal KETONE UR Negative LAB L400.3465 1.002-1.030 Normal SP.GR. DIPSTX 1.010 LAB L400.3550 5.0 - 8.0 pH UR Normal 6.5 LAB L400.3600 Negative mg/dl PROT Normal DIPSTX Negative LAB L400.3700 Normal mg/dl Normal UROBILI Normal LAB L400.3750 Negative Normal NITRITE UR Negative LAB L400.3780 Negative /ul Normal OCCULT BLOOD-UR Negative LAB L400.3800 Negative /ul LEUK Normal ESTERASE Negative Performed By: #### L400.2010 #### [facility] [address] [place], [address] PROTHROMBIN TIME W/INR Collected: 04/27/2018 Status: F Source: [place] 10:54 AM [facility] REPOSITORY TYPE CODE TESTS RESULT OUT OF RANGE REFERENCE UNITS LAB L300.4150 11.7-14.9 SECONDS Normal PROTIME 13.6 LAB L300.4200 Normal INR 1.0 Performed By: #### L300.3900, L300.4310 #### [facility] [address] [facility]. [facility] [address] PARTIAL THROMBOPLAST Collected: 04/27/2018 Status: F Source: [facility] 10:54 AM [facility] REPOSITORY TYPE CODE TESTS RESULT OUT OF RANGE REFERENCE UNITS LAB L300.4310 24.1-36.2 Seconds Normal PTT 32.6 Performed By: #### L300.3900, L300.4310 #### [facility] [address] PROTEIN+CREATININE Collected: Status: F Source: [place] RATIO,URINE 04/27/2018 10:54 AM [facility] REPOSITORY TYPE CODE TESTS RESULT OUT OF RANGE REFERENCE UNITS LAB L501.1200 NO RANGE EST. mg/dL 18.20 Normal UR CREAT LAB L501.1930 <11.9 mg/dL < 6.0 Normal PROTEIN,UR. RAN. LAB L501.1940 0-200 mg/g CRE Test Normal not performed PROT:CRE RATIO Performed By: #### L501.0900 #### [facility] [address] [facility]. [facility] [address] COMPREHENSIVE METABOLIC Collected: 04/27/2018 Status: F Source: [place] PROFIL 10:54 AM [facility] REPOSITORY TYPE CODE TESTS RESULT OUT OF RANGE REFERENCE UNITS LAB L501.0100 74-106 mg/dL Low GLU 72 Result Comment: Please note revised GLUCOSE reference range effective 2017. LAB L501.1000 7-18 mg/dL Normal BUN 15 LAB L501.1100 0.55-1.02 mg/dL Normal CREAT,SERUM 0.80 Result Comment: The validity of the calculated GFR AND GFRAA in patients over 70 years has not been determined. Clinical correlation is essential. LAB L501.1110 >60 mL/min Normal EST GFR 83 Result Comment: Non- GFR Calc LAB L501.1115 >60 mL/min Normal EST GFR - AA 100 Result Comment: GFR Calc LAB L501.1300 10-20 RATIO Normal BUN/CRE 18.7 LAB L501.1500 6.4-8.2 g/dL T Normal PROT 7.6 LAB L501.1800 3.2-5.0 g/dL Normal ALB 3.9 LAB L501.1950 2.2-4.2 g/dL Normal GLOB 3.7 LAB L501.2000 0.9-2.4 RATIO Normal A/G 1.1 LAB L501.2200 8.5-10.1 mg/dL CA Normal 8.5 LAB L501.4100 15-37 U/L Normal AST 19 LAB L501.4305 45-117 U/L Normal ALK P 49 LAB L501.4405 13-56 U/L Normal ALT 24 LAB L501.4600 0.20-1.00 mg/dL T Normal BILI 0.60 LAB L501.5300 136-145 mmol/L NA Normal 138 LAB L501.5600 3.5-5.1 mmol/L K Normal 3.7 LAB L501.5900 98-107 mmol/L CL Normal 106 LAB L501.6100 21.0-32.0 mmol/L Normal CO2 29.0 LAB L501.6200 5-15 Low GAP 3 Performed By: #### L500.4050, L501.6710, L505.7010 #### [facility] [address] [place], [place], [address] CRP Collected: 04/27/2018 Status: F Source: [place] 10:54 AM [facility] REPOSITORY TYPE CODE TESTS RESULT OUT OF RANGE REFERENCE UNITS LAB L501.6710 0.0-3.0 mg/L Normal < 2.90 C-REACTIVE PROT Result Comment: C-Reactive Protein (CRP) provides useful information for the diagnosis, therapy and monitoring of inflammatory processes and associated diseases. For the evaluation of Relative Risk for Cardiovascular Disease, a High Sensitivity CRP (HSCRP) should be ordered. Performed By: #### L500.4050, L501.6710, L505.7010 #### [facility] [address] [place], [address] RHEUMATOID FACTOR Collected: 04/27/2018 Status: F Source: [place] 10:54 AM [facility] REPOSITORY TYPE CODE TESTS RESULT OUT OF RANGE REFERENCE UNITS LAB L505.7010 <15 IU/mL Normal RHEUMATOID FAC < 10.0 Performed By: #### L500.4050, L501.6710, L505.7010 #### [facility] [address] [facility] [address] [place], [place], [address] LUPUS ANTICOAGULANT COMP Collected: 04/27/2018 Status: F Source: [place] 10:54 AM [facility] REPOSITORY TYPE CODE TESTS RESULT OUT OF REFERENCE UNITS RANGE LAB L4500.0125 0.0-55.0 sec DILUTE PT (dPT) Normal 45.9 LAB L4500.0150 0.00-1.40 Ratio dPT Conf. Ratio Normal 0.99 LAB L4500.0200 0.0-23.0 sec THROMBIN TIME Normal 18.7 LAB L4500.0600 0.0-51.9 sec PTT-LA Normal 36.4 LAB L4500.1000 0.0-47.0 sec DRVVT Normal 35.8 LAB L4500.1300 . Interpretation Normal Comment: Result Comment: No lupus anticoagulant was detected. Performed at: - [facility] [id number] [place] Helper: John Gonzales MD, Phone: [phone] Performed By: #### L4500.0100 #### [facility] (refer to report for specific site) refer to report for address and phone number HEPATITIS B SURFACE Collected: 04/27/2018 Status: F Source: [facility] 10:54 AM [facility] REPOSITORY TYPE CODE TESTS RESULT OUT OF RANGE REFERENCE UNITS LAB L3100.0400 Negative Normal HB Negative SURF AG Result Comment: Performed at: CB - [facility] [address] [id number] [place] Helper: Naveen Lopes PhD, Phone: [phone] Performed at: - [facility] [address] [id number] [place] Helper: John Gonzales MD, Phone: [phone] Performed By: #### L3100.0390, L3100.0528, L3100.0625, L3100.5700, L3100.5800, L4500.1102, L4500.9300, L4600.0100 #### [facility] (refer to report for specific site) refer to report for address and phone number HEP B SURFACE Collected: 04/27/2018 Status: F Source: [place] ANTIBODIES 10:54 AM [facility] REPOSITORY TYPE CODE TESTS RESULT OUT OF RANGE REFERENCE UNITS LAB L3100.0528 . Normal Hep B Reactive Kranthi AB Result Comment: Non Reactive: Inconsistent with immunity, less than 10 mIU/mL Reactive: Consistent with immunity, greater than 9.9 mIU/mL Performed By: #### L3100.0390, L3100.0528, L3100.0625, L3100.5700, L3100.5800, L4500.1102, L4500.9300, L4600.0100 #### [facility] (refer to report for specific site) refer to report for address and phone number HEPATITIS C ANTIBODIES Collected: 04/27/2018 Status: F Source: [place] 10:54 AM [facility] REPOSITORY TYPE CODE TESTS RESULT OUT OF RANGE REFERENCE UNITS LAB L3100.0650 0.0-0.9 s/co ratio Normal HEP C AB <0.1 Result Comment: Negative: < 0.8 Indeterminate: 0.8 - 0.9 Positive: > 0.9 The CDC recommends that a positive HCV antibody result be followed up with a HCV Nucleic Acid Amplification test (897402). Performed By: #### L3100.0390, L3100.0528, L3100.0625, L3100.5700, L3100.5800, L4500.1102, L4500.9300, L4600.0100 #### [facility] (refer to report for specific site) refer to report for address and phone number COMPLEMENT C3 Collected: 04/27/2018 Status: F Source: [place] 10:54 AM [facility] REPOSITORY TYPE CODE TESTS RESULT OUT OF RANGE REFERENCE UNITS LAB L3100.5700 82-167 mg/dL Normal COMP C3 119 Performed By: #### L3100.0390, L3100.0528, L3100.0625, L3100.5700, L3100.5800, L4500.1102, L4500.9300, L4600.0100 #### [facility] (refer to report for specific site) refer to report for address and phone number COMPLEMENT C4 Collected: 04/27/2018 Status: F Source: [place] 10:54 AM [facility] REPOSITORY TYPE CODE TESTS RESULT OUT OF RANGE REFERENCE UNITS LAB L3100.5800 14-44 mg/dL Normal COMP C4 18 Performed By: #### L3100.0390, L3100.0528, L3100.0625, L3100.5700, L3100.5800, L4500.1102, L4500.9300, L4600.0100 #### [facility] (refer to report for specific site) refer to report for address and phone number HEXAGONAL PHASE Collected: 04/27/2018 Status: F Source: [place] PHOSPHOLIPID 10:54 AM [facility] REPOSITORY TYPE CODE TESTS RESULT OUT OF RANGE REFERENCE UNITS LAB L4500.1107 0-11 sec Normal HEX PHAS 2 PHOSPH LAB L4500.1250 . Normal COMMENT Comment Result Comment: Results do not indicate the presence of a Lupus Anticoagulant: abnormal high screening results (PTT-LA, dRVVT, mixing studies), may be due to medication (heparin, warfarin, aspirin), Factor inhibitors, anticardiolipin antibodies, or poor specimen integrity. Performed By: #### L3100.0390, L3100.0528, L3100.0625, L3100.5700, L3100.5800, L4500.1102, L4500.9300, L4600.0100 #### [facility] (refer to report for specific site) refer to report for address and phone number THROMBIN TIME Collected: 04/27/2018 Status: F Source: [place] 10:54 AM [facility] REPOS[facility] TYPE CODE TESTS RESULT OUT OF RANGE REFERENCE UNITS LAB L4500.9300 0.0-23.0 sec Normal Thrombin Time 18.6 Performed By: #### L3100.0390, L3100.0528, L3100.0625, L3100.5700, L3100.5800, L4500.1102, L4500.9300, L4600.0100 #### [facility] (refer to report for specific site) refer to report for address and phone number CCP IGG ANTIBODIES Collected: 04/27/2018 Status: F Source: [place] 10:54 AM [facility] REPOSIT[facility] TYPE CODE TESTS RESULT OUT OF RANGE REFERENCE UNITS LAB L4600.0100 0-19 units Normal ANTI-CCP 5 [id number] Result Comment: Negative <20 Weak positive 20 - 39 Moderate positive 40 - 59 Strong positive >59 Performed By: #### L3100.0390, L3100.0528, L3100.0625, L3100.5700, L3100.5800, L4500.1102, L4500.9300, L4600.0100 #### [facility] (refer to report for specific site) refer to report for address and phone number ANTINUCLEAR ANTIBODIES Collected: 04/27/2018 Status: F Source: [place] DIRECT 10:54 AM [facility] REPOSITORY TYPE CODE TESTS RESULT OUT OF REFERENCE UNITS RANGE LAB L3100.5475 Negative High Positive RISHABH-DIRECT Result Comment: Performed at: - [facility] [id number] [employer] Helper: Naveen Lopes PhD, Phone: [phone] Performed By: #### L3100.5475, L3100.5500, L3100.9100, L3410.0500, L3410.0700, L3410.1110, L3410.4010 #### [facility] (refer to report for specific site) refer to report for address and phone number ANTI-DSDNA AB Collected: 04/27/2018 Status: F Source: [place] 10:54 AM [facility] REPOS[facility] TYPE CODE TESTS RESULT OUT OF RANGE REFERENCE UNITS LAB L3100.5500 0-9 IU/mL Normal dsDNA AB 3 Result Comment: Negative <5 Equivocal 5 - 9 Positive >9 Performed By: #### L3100.5475, L3100.5500, L3100.9100, L3410.0500, L3410.0700, L3410.1110, L3410.4010 #### [facility] (refer to report for specific site) refer to report for address and phone number SJOGREN'S ANTIBODIES Collected: 04/27/2018 Status: F Source: [place] A/B 10:54 AM [facility] REPOS[facility] TYPE CODE TESTS RESULT OUT OF RANGE REFERENCE UNITS LAB L3100.9200 0.0-0.9 AI Normal Anti-SS-A < 0.2 LAB L3100.9300 0.0-0.9 AI Normal Anti-SS-B < 0.2 Performed By: #### L3100.5475, L3100.5500, L3100.9100, L3410.0500, L3410.0700, L3410.1110, L3410.4010 #### [facility] (refer to report for specific site) refer to report for address and phone number ANTI-RADHA Collected: 04/27/2018 Status: F Source: [place] 10:54 AM [facility] REPOSITORY TYPE CODE TESTS RESULT OUT OF RANGE REFERENCE UNITS LAB L3410.0500 0.0-0.9 AI Normal ANTI-RADHA <0.2 Performed By: #### L3100.5475, L3100.5500, L3100.9100, L3410.0500, L3410.0700, L3410.1110, L3410.4010 #### [facility] (refer to report for specific site) refer to report for address and phone number [id number] AB Collected: Status: F Source: [place] 04/27/2018 10:54 AM [facility] REPOSITORY TYPE CODE TESTS RESULT OUT OF REFERENCE UNITS RANGE LAB L3410.0700 0.0-0.9 AI High ANTISCLER 1.2 Performed By: #### L3100.5475, L3100.5500, L3100.9100, L3410.0500, L3410.0700, L3410.1110, L3410.4010 #### [facility] (refer to report for specific site) refer to report for address and phone number ANTIEXTRACTABLE NUG AG Collected: 04/27/2018 Status: F Source: [place] 10:54 AM [facility] REPOSITORY TYPE CODE TESTS RESULT OUT OF RANGE REFERENCE UNITS LAB L3410.1200 0.0-0.9 AI High METAL CLEANER Ab 1.6 LAB L3410.1300 0.0-0.9 AI Normal ROMERO Ab <0.2 Performed By: #### L3100.5475, L3100.5500, L3100.9100, L3410.0500, L3410.0700, L3410.1110, L3410.4010 #### [facility] (refer to report for specific site) refer to report for address and phone number ANTI-CENTROMERE B AB Collected: 04/27/2018 Status: F Source: [place] 10:54 AM [facility] REPOSITORY TYPE CODE TESTS RESULT OUT OF RANGE REFERENCE UNITS LAB L3410.4010 0.0-0.9 AI Normal ANTI-CENT <0.2 B Performed By: #### L3100.5475, L3100.5500, L3100.9100, L3410.0500, L3410.0700, L3410.1110, L3410.4010 #### [facility] (refer to report for specific site) refer to report for address and phone number PELVIS 1 OR 2 VIEWS Observed: 04/27/2018 Status: F Source: [place] 10:53 AM [facility] REPOSITORY [facility] Imaging Services [address] [place] [address] Pelvis 1 or 2 Views MR#: [id number] Acct: [id number] Name: YOANDY ROSE Rep #: [id number] : 1975 F 43 From: Trent Cade MD PCP: Lesli Burnham DO Status: REG CLI Study: Pelvis 1 or 2 Views Date of Exam: 04/27/18 Exam# [id number] Ordering Dr: Arianna Masters MD STUDY: X-RAY - PELVIS REASON FOR EXAM: Female, 43 years old. Inflammatory polyarthropathy TECHNIQUE: One view of the pelvis was obtained. COMPARISON: None. FINDINGS: There is a non-specific bowel gas pattern. Normal visualized soft tissue structures. Normal bilateral iliac wings, sacroiliac joints and visualized sacrum. Normal visualized bilateral superior and inferior pubic rami. Normal pubic symphysis. Normal ischial tuberosities. Normal visualized right femoral head. Normal right acetabulum. Normal right hip joint. Normal visualized left femoral head. Normal left acetabulum. Normal left hip joint. RAD/Pelvis 1 or 2 Views IMPRESSION: Normal x-ray examination of the pelvis. Electronically Signed: Trent Cade MD at 16:58 EDT , Service support , CC: Lesli Burnham DO; Arianna Masters MD Manager Mission: Signed NCS AND/OR EMG Observed: 03/24/2018 Status: F Source: [place] PATIENT 10:48 AM [facility] REPOSITORY [facility] Pulmonary Services/Neurology [address] [facility] [place] [address] MR#: [id number] Acct: [id number] Name: YOANDY ROSE Rep #: [id number] : 1975 43 From: Ceferino Bal MD Referring Dr: Radha Gonzalez, FORENSIC ACCOUNTANT Status: REG CLI Ordering Dr: Date: Location: [facility] Sex: F C NCS and/or EMG Patient Report Ordering Doctor: Radha Gonzalez DATE OF SERVICE: 03/24/18 This is a bilateral upper extremity nerve conduction study and a left upper extremity EMG as well as paraspinal EMG performed on this 43-year-old female with numbness in her thumbs bilaterally beginning in January 2018. She has had an MRI of her entire neuraxis which she reports has been normal. There have been some positive rheumatologic tests however she tells me her rheumatologic anesthesiologist physician does not feel that these are significant. Bilateral upper extremity sensory and motor nerve conduction study demonstrates mild prolongation of the median motor distal latencies with preservation of amplitude and conduction velocities the median sensory distal latencies are also mildly prolonged. Ulnar motor and sensory and radial sensory responses are normal. The median and ulnar F-wave latencies demonstrate mild prolongation of the median motor F wave latencies. Needle electromyography of left upper extremity is performed. Muscles evaluated included the first dorsal interosseous, abductor pollicis brevis, brachioradialis, biceps, triceps, deltoid, and left lower, middle and upper paraspinal muscles. All muscles demonstrated normal insertional activity with absence of pathologic spontaneous activity. Motor unit potential recruitment pattern and amplitude is normal in all muscles tested. 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 There is no evidence of radiculopathy or neuropathy otherwise. 03/24/18 1048 <Electronically signed by Ceferino Bal MD> Date Ceferino Bal MD CC: FORENSIC ACCOUNTANT Radha Gonzalez; Lesli Burnham DO; Ceferino Bal MD Date Dictated: 03/24/18 1036 Date Transcribed: 03/24/18 103 Manager Mission: NF Signed SPINE THORACIC W/WO Observed: 03/04/2018 Status: F Source: [place] CONTRAST 3:16 PM [facility] REPOSITORY [facility] Imaging Services [address] [place] [address] Spine Thoracic W/WO Contrast MR#: [id number] Acct: [id number] Name: YOANDY ROSE Rep #: [id number] : 1975 F 43 From: Marco Carias MD PCP: Lesli Burnham DO Status: REG CLI Study: Spine Thoracic W/WO Contrast Date of Exam: 03/04/18 Exam# [id number] Ordering Dr: Shelli Starr MD STUDY: MRI THORACIC SPINE WITH AND WITHOUT CONTRAST REASON FOR EXAM: Female, 43 years old. Possible multiple sclerosis TECHNIQUE: 7 ml of Gadavist was administered intravenously for the contrast portion of the examination. COMPARISON: None. FINDINGS: Normal kyphosis of the thoracic spine. There is no substantial scoliosis. T1-2, T2-3, T3-4, T4-5, T5-6, T6-7, T7-8, T8-9, T9-10, T10- 11, T11-12: Normal endplates. Normal disc hydration, heights and morphology of the corresponding intervertebral discs. Normal central canal and intervertebral neural foramina at the corresponding levels. Normal visualized thoracic cord. Normal conus medullaris that terminates at the . The soft tissue structures are unremarkable. There is no enhancing abnormality. MRI/Spine Thoracic W/WO Contrast IMPRESSION: Normal unenhanced and enhanced MRI examination of the thoracic spine. Electronically Signed: Marco Carias MD at 19:44 EDT , Service support , CC: Shelli Starr MD; Lesli Burnham DO Manager Mission: Signed SPINE CERVICAL W/WO Observed: 03/04/2018 Status: F Source: [place] CONTRAST 3:16 PM [facility] REPOSITORY [facility] Imaging Services [address] [place] [address] Spine Cervical W/WO Contrast MR#: [id number] Acct: [id number] Name: YOANDY ROSE Rep #: [id number] : 1975 F 43 From: Marco Carias MD PCP: Lesli Burnham DO Status: REG CLI Study: Spine Cervical W/WO Contrast Date of Exam: 03/04/18 Exam# [id number] Ordering Dr: Shelli Starr MD STUDY: MRI CERVICAL SPINE WITH AND WITHOUT CONTRAST REASON FOR EXAM: Female, 43 years old. Possible multiple sclerosis TECHNIQUE: Standardized fat and water weighted pulse sequences were obtained in the sagittal and axial following I.V. administration of 7 ml of Gadavist contrast material. COMPARISON: None FINDINGS: Normal foramen magnum and brainstem-cervical cord junction. Normal craniovertebral junction. Normal anterior atlantoaxial articulation. Normal odontoid process. Normal cervical lordosis. Normal vertebral bodies and posterior osseous elements. C2-3: Normal endplates. Normal disc height, signal and morphology. Normal central canal and intervertebral neural foramina. C3-4: Normal endplates. Normal disc height, signal and morphology. Normal central canal and intervertebral neural foramina. C4-5: Normal endplates. Normal disc height, signal and morphology. Normal central canal and intervertebral neural foramina. C5-6: Normal endplates. Mildly narrowed disc height, normal signal and moderate sized central/right paracentral disc protrusion in association with tiny left posterolateral disc/osteophyte protrusion. There is narrowing of the spinal canal and mild impingement upon ventral surface of the thecal sac and cord.. There is mild to moderate left neural foraminal encroachment C6-7: Normal endplates. Normal disc height, signal and minor bulging of the disc in association with prominent left posterolateral/foraminal disc protrusion. There is mild narrowing of the central canal. Severe left neuroforaminal stenosis C7-T1: Normal endplates. Normal disc height, signal and morphology. Normal central canal and intervertebral neural foramina. Normal cervical cord. Normal visualized soft tissue structures. MRI/Spine Cervical W/WO Contrast IMPRESSION: Mild spondylosis and spinal stenosis at C5-6 and C6-7 secondary to disc disease and bony hypertrophy with findings as above No focal lesions within the cord. Electronically Signed: Marco Carias MD at 19:52 EDT , Service support , CC: Shelli Starr MD; Lesli Burnham DO Manager Mission: Signed BRAIN W/WO CONTRAST Observed: 03/04/2018 Status: F Source: [place] 3:16 PM [facility] REPOSITORY [facility] Imaging Services [facility] [place] [address] Brain W/WO Contrast MR#: [id number] Acct: [id number] Name: YOANDY ROSE Rep #: [id number] : 1975 F 43 From: Marco Carias MD PCP: Lesli Burnham DO Status: REG CLI Study: Brain W/WO Contrast Date of Exam: 03/04/18 Exam# [id number] Ordering Dr: Shelli Starr MD STUDY: MRI BRAIN WITH AND WITHOUT CONTRAST REASON FOR EXAM: Female, 43 years old. Optic neuritis facial numbness possible multiple sclerosis TECHNIQUE: Standardized multiplanar fat and water weighted pulse sequences were obtained. 7 ml of Gadavist contrast material was administered intravenously for the contrast portion of the examination. COMPARISON: None. FINDINGS: Normal size of the ventricles and extra-axial spaces for the patient's age. There are a couple of scattered tiny punctate white matter lesions bilaterally without mass effect or restricted diffusion. This could represent ischemic changes secondary to small vessel disease in patient of this age however demyelinating disease such as multiple sclerosis is not excluded Normal bilateral basal ganglia. Normal thalami. There is no extra-axial fluid accumulation. Normal flow voids within the major intracranial circulation suggesting patency by spin echo criteria. Normal venous enhancement. There is no enhancing intra-axial or extra-axial abnormality. Normal sella turcica, pituitary gland, infundibular stalk, optic chiasm and hypothalamus. Normal tectal plate and pineal gland. Normal midbrain, shana and medulla. Normal cerebellum. Normal basal cisterns. Normal bilateral temporal bones. Normal bilateral internal auditory canals. No demonstrated orbital abnormality, within the constraints of a routine brain study. Small mucous retention cyst in left maxillary sinus and mild bilateral ethmoid sinus disease Normal calvarium and skull base. Normal visualized soft tissue structures. Normal visualized upper cervical spine. MRI/Brain W/WO Contrast IMPRESSION: There are a couple of scattered tiny punctate white matter lesions bilaterally without mass effect or restricted diffusion. This is nonspecific in etiology but may be consistent with demyelinating disease such as multiple sclerosis. There are no enhancing plaques to suggest acute demyelination Electronically Signed: Marco Carias MD at 20:48 EDT , Service support , CC: Shelli Starr MD; Lesli Burnham DO Manager Mission: Signed SPINE LUMBAR W/WO Observed: 03/04/2018 Status: F Source: [place] CONTRAST 3:16 PM [facility] REPOSITORY [facility] Imaging Services [address] [place] [address] Spine Lumbar W/WO Contrast MR#: [id number] Acct: [id number] Name: YOANDY ROSE Rep #: [id number] : 1975 F 43 From: Marco Carias MD PCP: Lesli Burnham DO Status: REG CLI Study: Spine Lumbar W/WO Contrast Date of Exam: 03/04/18 Exam# [id number] Ordering Dr: Shelli Starr MD STUDY: MRI LUMBAR SPINE WITH AND WITHOUT CONTRAST REASON FOR EXAM: Female, 43 years old. Facial numbness and tingling TECHNIQUE: Standardized fat and water weighted pulse sequences were obtained in the sagittal and axial planes. 7 ml of Gadavist contrast material was administered for the contrast portion of the examination. COMPARISON: None FINDINGS: T12-L1: Normal endplates. Normal disc height, hydration and morphology. Normal bilateral facet joints. Normal central canal and bilateral lateral recesses. Normal bilateral intervertebral neural foramina. Normal lumbar lordosis. There is no substantial scoliosis. Normal conus medullaris that terminates at T12-L1 L1-2: Normal endplates. Normal disc height, hydration and morphology. Normal bilateral facet joints. Normal central canal and bilateral lateral recesses. Normal bilateral intervertebral neural foramina. L2-3: Normal endplates. Normal disc height, hydration and morphology. Normal bilateral facet joints. Normal central canal and bilateral lateral recesses. Normal bilateral intervertebral neural foramina. L3-4: Normal endplates. Normal disc height, hydration and minor annular bulge.. Mild facet arthropathy. Normal central canal. Minor bilateral recess encroachment.. Normal bilateral intervertebral neural foramina. L4-5: Normal endplates. Normal disc height, hydration and minimal annular bulge.. Bilateral facet arthropathy.. Normal central canal. Mild bilateral recess encroachment. Normal bilateral intervertebral neural foramina. L5-S1: Normal endplates. Normal disc height, desiccation and minimal annular bulge with small central annular tear and disc protrusion.. Bilateral facet arthropathy. Normal central canal and bilateral lateral recesses. Normal bilateral intervertebral neural foramina. Normal visualized sacral ala. Normal visualized paraspinous soft tissue structures. MRI/Spine Lumbar W/WO Contrast IMPRESSION: Small central disc protrusion at L5-S1 with mild facet arthropathy but no significant spinal stenosis Mild spinal stenosis at L3-4 and L4-5 secondary to minor bulging annuli and facet arthropathy Electronically Signed: Marco Carias MD at 22:29 EDT , Service support , CC: Shelli Starr MD; Lesli Burnham DO Manager Mission: Signed ACETYLCHOLINE RECEPTOR Collected: 02/19/2018 Status: F Source: [place] 12:12 PM [facility] REPOSITORY Order Comment: Comments: ANTI MUSK [id number] SERUM/REF Has Patient had Radioactive Injection for X-ray?: N TYPE CODE TESTS RESULT OUT OF RANGE REFERENCE UNITS LAB L3300.0600 0.00-0.24 nmol/L Normal ACTYL < 0.03 [id number] Result Comment: Negative: 0.00 - 0.24 Borderline: 0.25 - 0.40 Positive: > 0.40 Performed By: #### L3300.0600, L3410.0100, L3410.0200 #### [facility] (refer to report for specific site) refer to report for address and phone number [facility] PRETZEL TWISTING MACHINE OPERATOR AB, Collected: 02/19/2018 Status: F Source: [place] BLOCK[place] 12:12 PM [facility] REPOSITORY Order Comment: Comments: ANTI MUSK [id number] SERUM/REF Has Patient had Radioactive Injection for X-ray?: N TYPE CODE TESTS RESULT OUT OF RANGE REFERENCE UNITS LAB L3410.0100 0-25 % Normal [facility] REC 13 [id number] Result Comment: Negative: 0 - 25 Borderline: 26 - 30 Positive: >30 Results for this test are for research purposes only by the assay's children's program coordinator. The performance characteristics of this product have not been established. Results should not be used as a diagnostic procedure without confirmation of the diagnosis by another medically established diagnostic product or procedure. Performed By: #### L3300.0600, L3410.0100, L3410.0200 #### [facility] (refer to report for specific site) refer to report for address and phone number [facility] AB MODULATING Collected: 02/19/2018 Status: F Source: [place] 12:12 PM [facility] REPOSITORY Order Comment: Comments: ANTI MUSK [id number] SERUM/REF Has Patient had Radioactive Injection for X-ray?: N TYPE CODE TESTS RESULT OUT OF RANGE REFERENCE UNITS LAB L3410.0200 0-20 % Normal [facility] AB <12 17874 Result Comment: Negative: <21 Equivocal: 21 - 25 Positive: >25 The assay is linear between values of 12 and 64. Those <12 and >64 are reported as such. No single value for ACR-modulating antibody should be used as a sole basis for diagnosis or response to therapy. Performed at: [address] [id number] [place] Helper: John Gonzales MD, Phone: [phone] Performed By: #### L3300.0600, L3410.0100, L3410.0200 #### [facility] (refer to report for specific site) refer to report for address and phone number MISCELLANEOUS LAB Collected: 02/19/2018 Status: F Source: [place] PROCEDURE 12:12 PM [facility] REPOSITORY Order Comment: Comments: ANTI MUSK [id number] SERUM/REF Test(s) Ordered: ANTI MUSK [id number] SERUM/REF TYPE CODE TESTS RESULT OUT OF RANGE REFERENCE UNITS LAB L801.1541 Normal [facility] [place] Result Comment: TEST RESULT LIMITS MuSK Antibodies <1.0 U/mL Reference Range: <1.0 U/mL Results of 1.0 U/mL or higher are positive. A positive result, in the context of congruent clinical findings, confirms the diagnosis of autoimmune MuSK myasthenia gravis. COMMENTS: - Myasthenia gravis (MG) is a chronic, autoimmune disease of the motor system characterized by fatigable weakness with sensory and autonomic sparing. - MG is caused by auto-antibodies against proteins of the neuromuscular junction. Most cases (about 90%) of generalized MG are anti-acetylcholine receptor (AChR) antibody-positive.(1) - Of generalized MG patients who lack anti-AChR antibodies (AChR-seronegative), about 40% are positive for Muscle- Specific Kinase (MuSK) antibody.(1,2) - Though a positive MuSK result is specific for the diagnosis of MuSK MG, a negative MuSK result does not rule out a MG diagnosis. - MuSK MG accounts for 5-8% of all MG and is characterized by prominent facial, bulbar and respiratory weakness, frequent respiratory crises, and atrophy of the tongue and masseter muscles.(3) - MuSK antibody levels have been shown to correlate with disease severity.(4) Serial measurements may be useful to follow treatment. References: 1. Carrol-Sidra S et al. J Autoimmunity 2014;52:90-100. 2. Cookie GUERRERO et al. PNAS 2013;110(55);82847-47085. 3. Anandi A et al. Autoimmunity Reviews 2013;12:931-5. 4. Abdieli E et al. Neurology 2006;67:505-507. This test was developed and its performance characteristics determined by [facility]. It has not been cleared or approved by the Food and Drug Administration. TESTING PERFORMED AT [facility]. ORIGINAL REPORT ON FILE IN LAB CONTAINS ADDITIONAL TEST SITE INFORMATION. Performed By: #### L801.1541 #### [facility] [address] [place], [address] VITAMIN B12 Collected: 02/13/2018 Status: F Source: [place] 2:05 PM [facility] REPOSITORY TYPE CODE TESTS RESULT OUT OF REFERENCE UNITS RANGE LAB L503.0105 211-911 pg/mL High Vitamin B12 915 Performed By: #### L503.0105, L506.1000 #### [facility] [address] [place], [address] VITAMIN D,25 HYDROXY Collected: 02/13/2018 Status: F Source: [place] 2:[place] [facility] TYPE CODE TESTS RESULT OUT OF REFERENCE UNITS RANGE LAB L506.1000 29.95-100.01 ng/mL Low Vitamin D 19.7 25-OH Result Comment: Vitamin D 25(OH) Status Range Deficiency <20 ng/mL (50nmol/L) Insuffciency 20 - 30 ng/mL (50 - 75 nmol/L) Sufficiency 30 - 100 ng/mL (75 - 250 nmol/L) Toxicity >100 ng/mL (>250 nmol/L) Performed By: #### L503.0105, L506.1000 #### [facility] [address] [place], [address] IRON+IRON BINDING Collected: 02/13/2018 Status: F Source: [facility]:[place] [facility] [place] Order Comment: Is Patient Taking Vitamins or Folic Acid Supplements? N TYPE CODE TESTS RESULT OUT OF RANGE REFERENCE UNITS LAB L503.6075 250-450 ug/dL TIBC Normal 392 LAB L503.6150 50-170 ug/dL IRON Normal 72 LAB L503.6250 15.0-55.0 % IRON Normal SATURATION 18.4 Performed By: #### L503.6030, L503.6550, L506.0250 #### [facility] [address] [place], [address] FERRITIN Collected: 02/13/2018 Status: F Source: [place] 2:[place] [facility] Order Comment: Is Patient Taking Vitamins or Folic Acid Supplements? N TYPE CODE TESTS RESULT OUT OF RANGE REFERENCE UNITS LAB L503.6550 8-252 ng/mL Normal FERRITIN 18 Performed By: #### L503.6030, L503.6550, L506.0250 #### [facility] [address] [place], [address] FOLATES, (FOLIC ACID) Collected: 02/13/2018 Status: F Source: [place] 2:05 PM [facility] REPOSIT[facility] Order Comment: Is Patient Taking Vitamins or Folic Acid Supplements? N TYPE CODE TESTS RESULT OUT OF RANGE REFERENCE UNITS LAB L506.0250 3.1-55.4 ng/mL Normal FOLATES 26.20 Performed By: #### L503.6030, L503.6550, L506.0250 #### [facility] [place], [address] CBC, EMPLOYEE Collected: 02/03/2018 Status: F Source: [place] 11:21 AM [facility] REPOSIT[facility] TYPE CODE TESTS RESULT OUT OF RANGE REFERENCE UNITS LAB L100.1000 4.4-11.0 K/mm3 Low WBC 4.3 LAB L100.1200 4.2-5.4 M/mm3 Normal RBC 4.69 LAB L100.1300 12.0-15.0 g/dl Normal HGB 14.6 LAB L100.1400 37-47 % Normal HCT 42.7 LAB L100.1500 81-99 fL Normal MCV 91.0 LAB L100.1600 27.0-32.0 pg Normal MCH 31.1 LAB L100.1700 32-36 g/gl Normal MCHC 34.2 LAB L100.1810 11.6-14.6 % Normal RDW CV 12.3 LAB L100.1820 35.1-43.9 fl Normal RDW SD 40.3 LAB L100.1900 150-450 K/mm3 Normal PLT 178 LAB L100.2000 6.2-12.0 fl Normal MPV 11.5 LAB L100.2110 47-70 % Normal NEUT% 53.1 LAB L100.2210 19-41 % Normal LY% 36.7 LAB L100.2310 0-10 % Normal MONO% 7.4 LAB L100.2410 0-5 % Normal EO% 2.6 LAB L100.2510 0-1 % Normal BASO% 0.2 LAB L100.2620 2.0-7.7 X10 3/uL Normal Absolute Neut 2.3 LAB L100.2720 0.83-4.51 X10 3/ul Normal Absolute Lymph 1.58 Performed By: #### L100.0200 #### [facility] [place], [address] EMPLOYEE PROFILE Collected: 02/03/2018 Status: F Source: [place] 11:21 AM [facility]IT[facility] TYPE CODE TESTS RESULT OUT OF RANGE REFERENCE UNITS LAB L501.0100 74-106 mg/dL Normal GLU 78 Result Comment: Please note revised GLUCOSE reference range effective 2017. LAB L501.1000 7-18 mg/dL Normal BUN 9 LAB L501.1100 0.55-1.02 mg/dL Normal CREAT,SERUM 0.94 Result Comment: The validity of the calculated GFR AND GFRAA in patients over 70 years has not been determined. Clinical correlation is essential. LAB L501.1110 >60 mL/min Normal EST GFR 69 Result Comment: Non- GFR Calc LAB L501.1115 >60 mL/min Normal EST GFR - AA 83 Result Comment: GFR Calc LAB L501.1300 10-20 RATIO Low BUN/CRE 9.5 LAB L501.1400 2.6-6.0 mg/dL Normal URIC 4.6 Result Comment: The drugs N-Acetylcysteine and Metamizole may falsely depress this assay. LAB L501.1500 6.4-8.2 g/dL Normal T PROT 7.7 LAB L501.1800 3.2-5.0 g/dL Normal ALB 4.2 LAB L501.1950 2.2-4.2 g/dL Normal GLOB 3.5 LAB L501.2000 0.9-2.4 RATIO Normal A/G 1.2 LAB L501.2200 8.5-10.1 mg/dL Normal CA 8.5 LAB L501.2300 2.5-4.9 mg/dL Normal PHOS 3.2 LAB L501.4100 15-37 U/L Normal AST 17 LAB L501.4305 45-117 U/L Normal ALK P 46 LAB L501.4405 13-56 U/L Normal ALT 24 LAB L501.4600 0.20-1.00 mg/dL Normal T BILI 0.60 LAB L501.4700 0.00-0.30 mg/dL Normal D BILI 0.09 LAB L501.4900 200 mg/dL Normal CHOL 170 Result Comment: <200 mg/dL Desirable 200-240 mg/dL Borderline >240 mg/dL High Risk LAB L501.5000 mg/dL Normal TRIG 92 Result Comment: The drugs N-Acetylcysteine and Metamizole may falsely depress this assay. Serum Triglycerides Reference Interval Normal <150 mg/dL Borderline high 150 - 199 mg/dL High 200 - 499 mg/dL Very High > or = 500 mg/dL LAB L501.5300 136-145 mmol/L Normal NA 141 LAB L501.5600 3.5-5.1 mmol/L Normal K 3.5 LAB L501.5900 98-107 mmol/L Normal CL 104 LAB L501.6100 21.0-32.0 mmol/L Normal CO2 28.0 LAB L501.6200 5-15 Normal 9 GAP LAB L501.6400 mg/dL Normal HDL 54 Result Comment: The drugs N-Acetylcysteine and Metamizole may falsely depress this assay. Reference Range HDL <40 mg/dL Low HDL Cholesterol HDL >or= 60 mg/dL High HDL Cholesterol LAB L501.6475 Normal CHOL:HDL 3.10 LAB L501.6500 0-130 mg/dL Normal LDL 98 LAB L501.6600 5-40 mg/dL Normal VLDL 18 LAB L504.2610 84-246 U/L Normal LDH 175 Performed By: #### L500.2900 #### [facility] [address] [place], [address] URINALYSIS, EMPLOYEE Collected: 02/03/2018 Status: F Source: [place] 11:21 AM [facility] REPOSITORY TYPE CODE TESTS RESULT OUT OF RANGE REFERENCE UNITS LAB L400.3000 Yellow COLOR Normal Yellow LAB L400.3050 Clear Normal CLARITY Clear LAB L400.3200 Normal mg/dl Normal GLUCOSE, UR Normal LAB L400.3300 Negative mg/dL Normal BILIRUBIN URINE Negative LAB L400.3400 Negative mg/dl Normal KETONE UR Negative LAB L400.3465 1.002-1.030 Normal SP.GR. DIPSTX 1.010 LAB L400.3550 5.0 - 8.0 pH UR Normal 7.0 LAB L400.3600 Negative mg/dl PROT Normal DIPSTX Negative LAB L400.3700 Normal mg/dl Normal UROBILI Normal LAB L400.3750 Negative Normal NITRITE UR Negative LAB L400.3780 Negative /ul Normal OCCULT BLOOD-UR Negative LAB L400.3800 Negative /ul LEUK Normal ESTERASE Negative Performed By: #### L400.0100 #### [facility] [address] [place], [address] NICOTINE URINE DRUG Collected: 02/03/2018 Status: F Source: [place] SCREEN 11:21 AM [facility] REPOSITORY TYPE CODE TESTS RESULT OUT OF RANGE REFERENCE UNITS LAB L505.6250 TO BE Normal CONFIRMED Result Comment: CONFIRMATORY TESTING FOR ALL POSITIVE URINE DRUG SCREEN RESULTS WILL ONLY BE SENT OUT UPON PHYSICIAN ORDER. The results of Urine Drug Screen methods provide only preliminary analytical test results. A more specific alternate chemical method must be used in order to obtain a confirmed analytical result. Gas chromatography/mass spectrometery (GC/MS) is the preferred confirmatory method. Clinical consideration and professional judgement should be applied to any drug of abuse test result, particularly when preliminary positive results are used. LAB L505.6270 <200 ng/mL Normal COT DRG Negative SCREEN Result Comment: Cotinine is the first-stage metabolite of Nicotine. Performed By: #### L505.6240 #### [facility] [address] [facility] [place], [address] HEMOGLOBIN A1C Collected: 02/03/2018 Status: F Source: [place] 11:20 AM [facility] REPOSITORY TYPE CODE TESTS RESULT OUT OF RANGE REFERENCE UNITS LAB L501.9985 4.2-6.3 % Normal HGB A1C 5.0 Performed By: #### L501.9985 #### [facility] [address] [facility] [place], [address] DOWNTIME REPORT Observed: 01/22/2018 Status: F Source: [place] 12:33 PM [facility] Medical Records Department [address] [facility] [place] [address] Downtime Report MR#: [id number] Acct: [id number] Name: YOANDY ROSE Rep #: [id number] : 1975 42 From: Messi Webber PCP: Gsutabo Cummins DO Status: REG CLI This patient was seen during an EMR downtime January 05, 2018 - January 12, 2018. This patient may have a combination of paper and electronic documentation or all paper documentation. All documentation is viewable within the e-chart portion of [employer] for each patient visit. SJOGREN'S ANTIBODIES Collected: 01/22/2018 Status: F Source: [place] A/B 12:09 PM [facility] REPOSITORY TYPE CODE TESTS RESULT OUT OF RANGE REFERENCE UNITS LAB L3100.9200 0.0-0.9 AI Normal Anti-SS-A < 0.2 LAB L3100.9300 0.0-0.9 AI Normal Anti-SS-B < 0.2 Result Comment: Performed at: [address] [id number] Coppersmith Helper: Naveen Lopes PhD, Phone: [phone] Performed By: #### L3100.9100 #### [facility] (refer to report for specific site) refer to report for address and phone number ANTI-MITOCHONDRIAL AB Collected: Status: F Source: [place] 01/05/2018 11:00 AM [facility] REPOSITORY TYPE CODE TESTS RESULT OUT OF RANGE REFERENCE UNITS LAB L800.1280 Normal MITOCHN AB Result Comment: TEST RESULT UNITS REF INTERVAL Mitochondrial (M2) Antibody <20.0 Units 0.0 - 20.0 Negative 0.0 - 20.0 Equivocal 20.1 - 24.9 Positive >24.9 Mitochondrial (M2) Antibodies are found in 90-96% of patients with primary biliary cirrhosis. Performed By: #### L800.1280, L3100.5500 #### [facility] (refer to report for specific site) refer to report for address and phone number ANTI-DSDNA AB Collected: 01/05/2018 Status: F Source: [place] 11:00 AM [facility] REPOSITORY TYPE CODE TESTS RESULT OUT OF RANGE REFERENCE UNITS LAB L3100.5500 Normal dsDNA AB Result Comment: TEST RESULT FLAG UNITS REF INTERVAL Antiextractable Nuclear Ag METAL CLEANER Antibodies 1.7 High AI 0.0 - 0.9 Romero Antibodies <0.2 AI 0.0 - 0.9 Anti-dsDNA Antibodies Anti-DNA (DS) Ab Qn 3 IU/mL 0 - 9 Negative <5 Equivocal 5 - 9 Positive >9 Antinuclear Antibodies Direct RISHABH Direct Positive Abnormal Negative TESTING PERFORMED AT [facility]. ORIGINAL REPORT ON FILE IN LAB CONTAINS ADDITIONAL TEST SITE INFORMATION. Performed By: #### L800.1280, L3100.5500 #### [facility] (refer to report for specific site) refer to report for address and phone number ANTI-SMOOTH MUSCLE ABS Collected: 01/05/2018 Status: F Source: [place] 11:00 AM [facility] REPOSITORY TYPE CODE TESTS RESULT OUT OF RANGE REFERENCE UNITS LAB L803.2200 Normal ANTISMOOTH 6643 Result Comment: TEST RESULT UNITS REFERENCE INTERVAL Actin (Smooth Muscle) Antibody 9 Units 0 - 19 Negative 0 - 19 Weak positive 20 - 30 Moderate to strong positive >30 Actin Antibodies are found in 52-85% of patients with autoimmune hepatitis or chronic active hepatitis and in 22% of patients with primary biliary cirrhosis. CCP Antibodies IgG/IgA 5 units 0 - 19 Negative <20 Weak positive 20 - 39 Moderate positive 40 - 59 Strong positive >59 Thyroglobulin Antibody <1.0 IU/mL 0.0 - 0.9 Thyroglobulin Antibody measured by Sarai [place] Methodology Thyroid Peroxidase (TPO) Ab 14 IU/mL 0 - 34 TESTING PERFORMED AT [facility]. ORIGINAL REPORT ON FILE IN LAB CONTAINS ADDITIONAL TEST SITE INFORMATION. Performed By: #### L803.2200 #### [facility] (refer to report for specific site) refer to report for address and phone number CRP Collected: 10/02/2017 Status: F Source: [place] 4:37 PM [facility] REPOSITORY TYPE CODE TESTS RESULT OUT OF RANGE REFERENCE UNITS LAB L501.6710 0.0-3.0 mg/L Normal < 2.90 C-REACTIVE PROT Result Comment: C-Reactive Protein (CRP) provides useful information for the diagnosis, therapy and monitoring of inflammatory processes and associated diseases. For the evaluation of Relative Risk for Cardiovascular Disease, a High Sensitivity CRP (HSCRP) should be ordered. Performed By: #### L501.6710, L505.7010 #### [facility] [address] [place], [place], [address] RHEUMATOID FACTOR Collected: 10/02/2017 Status: F Source: [place] 4:37 PM [facility] REPOSITORY TYPE CODE TESTS RESULT OUT OF RANGE REFERENCE UNITS LAB L505.7010 <15 IU/mL Normal RHEUMATOID FAC < 10.0 Performed By: #### L501.6710, L505.7010 #### [facility] [address] [place], [place], [address] ERYTHROCYTE SED RATE Collected: 10/02/2017 Status: F Source: [place] 4:37 PM [facility] REPOSITORY TYPE CODE TESTS RESULT OUT OF RANGE REFERENCE UNITS LAB L102.0000 0-20 mm/hr Normal SED RATE 5 Performed By: #### L101.9900 #### [facility] [address] [place], [place], [address] ANTINUCLEAR ANTIBODIES Collected: 10/02/2017 Status: F Source: [place] DIRECT 4:37 PM [facility] REPOSITORY TYPE CODE TESTS RESULT OUT OF REFERENCE UNITS RANGE LAB L3100.5475 Negative High Positive RISHABH-DIRECT Result Comment: Performed at: - [facility] [id number] Coppersmith Helper: Naveen Lopes PhD, Phone: [phone] Performed By: #### L3100.5475 #### [facility] (refer to report for specific site) refer to report for address and phone number HLA B27 Collected: 10/02/2017 Status: F Source: [place] 4:37 PM [facility] REPOSITORY TYPE CODE TESTS RESULT OUT OF RANGE REFERENCE UNITS LAB L3410.1500 . Normal HLA Positive B27 Result Comment: HLA-B*27 Positive This patient is positive for HLA-B*27. This procedure rules out the B*27:06 and 27:09 alleles, which the literature suggests are not associated with spondyloarthropathies. B27 allele interpretation for all loci based on IMGT/HLA database version 3.27 This test was developed and its performance characteristics determined by [facility]. It has not been cleared or approved by the Food and Drug Administration. [facility] CLIA ID Number [id number] This test was performed using PCR (Polymerase Chain Reaction)/SSOP (Sequence Specific Oligonucleotide Probes) technique. SBT (Sequence Based Typing) and/or SSP (Sequence Specific Primers) may be used as supplemental methods when necessary. Please contact [facility] Customer Service at if you have any questions. Director of [facility] Laboratory Dr Sanchez Moctezuma, PhD Performed at: [address] [place] [id number] Coppersmith Helper: Sanchez Moctezuma PhD, Phone: [phone] Performed By: #### L3410.1400 #### [facility] (refer to report for specific site) refer to report for address and phone number OPERATIVE REPORT Observed: 09/29/2017 Status: F Source: [place] 8:15 AM [facility] REPOSITORY [facility] Medical Records Department [address] [place] [id number] Operative Report 09/29/17 0739 MR#: [id number] Acct: [id number] Name: YOANDY ROSE Rep #: [id number] : 1975 42 From: Osmar Vee MD PCP: Gustabo Cummins DO Status: REG SDC Y Location: [place] [address] Operative Report Date of Procedure: 09/29/17 Surgeon: Osmar Vee MD, FACOG Anesthesia: Susanne Trinidad CRNA Type of anesthesia: General LMA Procedure: Diagnostic Hysteroscopy, Dilation and Curettage, Hydrothermal Ablation Pre-op: Menorrhagia Post-Op: Menorrhagia Findings: 8 cm EM cavity with normal appearing endometrium without polyps or fibroids noted Indication: This is a 42 year old patient who has been having problems with extremely heavy menses. Conservative measures have not been helpful. Endometrial sampling was benign and pelvic ultrasound showed that ablation may be helpful. Pt has been counseled regarding the risks, benefits and alternatives of this procedure and all questions answered. She understands that only about half of patients will have amenorrhea after this procedure. Procedure: Patient taken to the operating room where after induction of general anesthesia the patient was prepped and draped in the usual sterile fashion. Bladder was drained of urine with a catheter. Anterior cervix grasped and cervix was dilated to about 17 Maori size. Hysteroscopic hydrothermal ablation (HTA) unit was place in the cervix and the above findings were noted. HTA unit was removed and the uterus was gently curretted removing all contents. An HTA ablation cycle was then carried out at about 90 degrees Centigrade for 10 minutes with virtually no fluid loss during the procedure. After an appropriate cool down the HTA unit was removed with minimal bleeding noted. The patient tolerated the procedure well and was taken to the recovery room in satisfactory condition. Sponge, instruments and needle counts were all correct. There were no apparent complications of the surgery. Cefotan 2 gms IV was given prior to the procedure. Estimated Blood Loss: Minimal Specimen to Pathology: Endometrial Curettings 09/29/17 0815 <Electronically signed by Osmar Vee MD> Date Osmar Vee MD CC: Osmar Vee MD; Gustabo Cummins DO Signed DISCHARGE INSTRUCTION Observed: 09/29/2017 Status: F Source: [place] 7:41 AM [facility] REPOSITORY [facility] Medical Records Department [address] [place] [address] Instructions for Home/Discharge Instructions 09/29/17 0741 MR#: [id number] Acct: [id number] Name: YOANDY ROSE Rep #: [id number] : 1975 42 From: Osmar Vee MD PCP: Gustabo Cummins DO Status: REG [facility] Discharge Diet: No Restrictions Discharge Activity: Return to Normal Activity, May Shower, May Take a Tub Bath Call your doctor if you observe: Fever of 101 or Higher, Inability to urinate, Inability to have a bowel movement, Using more than one pad per hour Allergies/Adverse Reactions: Allergies No Known Allergies Allergy (Verified 09/22/17 14:01) Medications to take at Discharge Dexlansoprazole [Dexilant] 60 mg PO LUNCH 09/22/17 Oxycodone [Oxyir] 5 mg PO Q6H PRN PRN 7 Days #10 tab 09/29/17 The following prescriptions were given: Oxycodone [Oxyir] 5 mg PO Q6H PRN PRN 7 Days #10 tab PRN Reason: Severe Pain (-05/13) Primary Care Physician: Gustabo Cummins DO [Primary Care Provider] - Please Follow Up With: Osmar Vee MD When: 2-3 weeks 09/29/17 0741 <Electronically signed by Osmar Vee MD> Date Osmar Vee MD CC: Gustabo Cummins DO ENDOMETRIAL BX/CURETTINGS Observed: 09/29/2017 Status: F Source: [place] 7:30 AM [facility] REPOSITORY Patient: YOANDY ROSE : 1975 (42/F) Acct Num: [id number] Phys: Osmar Vee MD Unit Num: [id number] Loc: [facility] Specimen: [id number] Received: 09/29/17 - 1005 Spec Type: ENDOM BX/C TISSUES TISSUES: Endometrium, NOS COMMENT Please make reference to previous specimen ([id number]) endometrium, biopsy with diagnosis of secretory endometrium. GROSS DESCRIPTION Received in fixative is one container labeled with the patient's name and designated endometrial curettings. The specimen consists of multiple fragments of hemorrhagic soft tissue mixed with mucoid tissue that in aggregate measure 4 x 3 x 0.2 cm. The entire specimen is submitted in two cassettes. / ADAM:yoav 09/29/17 TC:5 CPT: 34941 HEADER OPERATION: Hysteroscopy, dilation and curettage, hydrothermal ablation PRE-OP DIAGNOSIS: Menorrhagia TISSUE SUBMITTED: Endometrial curettings MICROSCOPIC DESCRIPTION Slides are reviewed. MICROSCOPIC DIAGNOSIS Endometrial curettings: Mildly disordered proliferative endometrium. ADAM:yoav 09/30/17 Signed Иван Flores 09/30/17 <signature on file> Performed By: #### PEMB #### [facility] [address] [place], [address] HISTORY AND PHYSICAL Observed: 09/28/2017 Status: F Source: [place] EXAM 10:07 PM [facility] REPOSITORY [facility] Medical Records Department [address] [place] [address] History and Physical 09/28/17 2205 MR#: [id number] Acct: [id number] Name: YOANDY ROSE Rep #: [id number] : 1975 42 From: Osmar Vee MD PCP: Gustabo Cummins DO Status: PRE [facility] Y Location: [facility] History and Physical Date of Admission: 09/29/17 Surgical History and Physical Yoandy Rose, a 42 year old female 2 0 1 0 2, presents for HTA, Hysteroscopy and D and C on September 29, 2017 at 7:30. -- Heavy Menses -- Menses have been getting heavier and heavier. Wants to proceed with ablation if this is an option. Recent TFTs were normal. Recent EMBx and U/S OK. MEDICATIONS HISTORY: Patient is also takin. Dexilant 60 mg capsule, delayed release, 1 PO QD ALLERGIES: NKA Infections - Chicken pox childhood Illnesses - mitral valve prolapse Accidents - no injuries of consequence Hospitalizations - Childbirth ; Review of Systems: GENERAL - Denies fever, or chills SKIN - Denies skin changes EYES - Denies visual changes EARS - Denies difficulty hearing NOSE - Denies nasal congestion or bleeding MOUTH - Denies sore throat or difficulty swallowing NECK - Denies pain or swelling RESPIRATORY - Denies shortness of breath or wheezing CARDIOVASCULAR - Denies palpitations or chest pain GASTROINTESTINAL - Denies nausea, vomiting, diarrhea, constipation GENITOURINARY - Denies dysuria, frequency of urination, incontinence of urine MUSCULOSKELETAL - Denies joint or muscle pain NEUROLOGICAL - Denies localized numbness or weakness PSYCHIATRIC - Denies depression or anxiety ENDOCRINE - Denies heat or cold intolerance, weight loss or gain HEMATO-IMMUNOLOGIC - Denies excessive bleeding with cuts SOCIAL HISTORY: Alcohol Use - denies use Smoking - denies use Diet - balanced Diet Lifestyle - Exercise - regular Seat Belt Use - always 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 Sibling(s): Multiple Births. Father: Heart Disease and [place]. Maternal Grandmother: DM II. MENSTRUAL HISTORY: LMP Known?- DefiniteAmount/Duration - 4- 5 DAYS, Regularity - Regular, Frequency - 28 days, LMP - 09/16/17, Age Onset Menarche - 13 PAST PREGNANCIES: Total Pregnancies - 3; Full Term Pregnancies - 2; Premature - 0; Abortions, Induced - 0; Abortions, Spontaneous - 1; Ectopics - 0; Multiple Births - 0; Living Children - 2 SURGICAL HISTORY: 1. 10/02/2000 Exp. Lap. ; - Endometriosis 2. 04/16/2002 Suction D ; Patria Elder M.D. - Missed Ab 3. 04/16/2005 R C/S ; Patria Elder M.D. - repeat 4. 03/17/2003 ; Patria Elder M.D. - PHYSICAL EXAM BP- 124/62 Sitting, Right arm, regular cuff Weight- 158.83888 lbs Height- 65.00 inch BMI:26.35 CONSTITUTIONAL - NAD, well nourished, and well developed SKIN - No rash, lesions, or ulcers HEENT - Normocephalic, PERRLA, EOMI NECK - No nodes, no nuchal rigidity and thyroid normal size and texture LYMPH NODES - Palpation of lymph nodes in neck and groins within normal limits LUNGS - CTA x2 without wheezes, crackles or rales CARDIAC - Regular rate and rhythm without rubs, murmurs, or gallops BREAST - No dominant masses, no tenderness, no axillary adenopathy, no nipple discharge, no skin changes ABDOMEN - Without hepatosplenomegaly, distention, masses, rebound, or guarding; normal bowel sounds; no hernias EXTREMITIES - No edema or calf tenderness NEUROLOGICAL - Cranial nerves II-XII grossly intact PSYCHIATRIC - A and O to time, place, person, mood and affect External Genital Vagina - non-tender without lesions Urethra/Urethral Meatus - non-tender Bladder - non-tender Vagina - vaginal lópez are pink and moist without loss of rugae and no evidence of atropy Cervix - without cervical motion tenderness and has normal size and features without evident lesions Uterus - 5-6 cm in size, mobile and nontender Adnexa - clear without masses or tenderness Pap - done -- Reflex to ASCUS, LSIL, KARRIE ASSESSMENT/PLAN:Menorrhagia Denies bleeding between menses. Pelvic u/s and EMBx ok. Discussed RBAs and all questions answered. 09/28/172206 <Electronically signed by Osmar Vee MD> Date Osmar Vee MD Cosigner Signature: Date (if applicable) CC: Osmar Vee MD; Gustabo Cummins DO Signed ,SERUM,HCG QUALI. Collected: Status: F Source: [place] 09/25/2017 2:22 PM [facility] REPOSITORY TYPE CODE TESTS RESULT OUT OF REFERENCE UNITS RANGE LAB L700.7000 0-9 Nonpreg Negative Normal HCGSQUAL NEGATIVE LAB L700.6700 =>Qualitative mIU/mL Normal HCG Qual < 1 triggr Performed By: #### L700.6800 #### [facility] [address] [place], [place], [id number] CBC-COMPLETE BLOOD CNT Collected: 09/25/2017 Status: F Source: [place] NO DIFF 2:22 PM [facility] REPOSITORY TYPE CODE TESTS RESULT OUT OF RANGE REFERENCE UNITS LAB L100.1000 4.4-11.0 K/mm3 Normal WBC 5.7 LAB L100.1200 4.2-5.4 M/mm3 Normal RBC 4.47 LAB L100.1300 12.0-15.0 g/dl Normal HGB 13.9 LAB L100.1400 37-47 % Normal HCT 40.5 LAB L100.1500 81-99 fL Normal MCV 90.6 LAB L100.1600 27.0-32.0 pg Normal MCH 31.1 LAB L100.1700 32-36 g/gl Normal MCHC 34.3 LAB L100.1810 11.6-14.6 % Normal RDW CV 12.0 LAB L100.1820 35.1-43.9 fl Normal RDW SD 39.1 LAB L100.1900 150-450 K/mm3 Normal PLT 184 LAB L100.2000 6.2-12.0 fl Normal MPV 11.2 Performed By: #### L100.0500 #### [facility] [address] [place], [place], [address] TYPE AND SCREEN Collected: 09/25/2017 Status: F Source: [place] 2:22 PM [facility] REPOSITORY Order Comment: Surgery Date: 09/23/17 Hx of Preganancy in last 3 Months No Ever experience any problems with transfusion(s)? N Hx of Transfusion in last 3 Months N Reason for Type AND Screen/Red Cells: SURGERY SURGICAL PROCEDURE: 42329 TYPE CODE TESTS RESULT OUT OF RANGE REFERENCE UNITS LAB B10.0800 B Normal BLOOD TYPE GEL POSITIVE LAB B100.4000 Normal Antibody NEGATIVE Screen Performed By: #### B101.7475 #### [facility] [address] [place], [place], [address] URGENT CARE VISIT Observed: 09/25/2017 Status: F Source: [place] REPORT 1:59 PM [facility] REPOSIT[facility] [address] [place] [address] [address] [place], [place] [address] OFFICE VISIT Date of Service: 09/25/17 MR#: [id number] Acct: [id number] Name: YOANDY ROSE Rep #: [id number] : 1975 Provider: Candelario ENCINAS Age/Sex: 42/F Location: [facility] Status: Signed Intake Vital Signs09/25/17 Blood Pressure 120/76 09/25/17 Blood Pressure Location Lt brachial Intake Visit Reasons: PINKEYE Chief Complaint: Left eye pain Allergies No Known Allergies Allergy (Verified 09/22/17 14:01) Medications Dexlansoprazole [Dexilant] 60 mg PO LUNCH 09/22/17 [History Confirmed 09/22/17] [facility] Social History Smoking Status: Never smoker HPI HPI Chief Complaint: Left eye pain Details: YOANDY ROSE, is a 42 F who presents to the office today for initial evaluation new onset left eye erythema, discomfort, discharge. Patient notes noticing the symptoms as described above beginning this morning when she awoke. She notes localizing discomfort is aggravated with movement of her left eye, though noting no visual acuity changes. No fever, chills, sweats, rash, chest pain/shortness of breath, cough. She is a non-smoker. No family members with similar signs or symptoms. No other associated symptoms no other alleviating or aggravating factors. ROS Const Constitutional: No excessive sweating, abnormal sleep pattern, fever(s), night sweats, chills or body ache Eyes Eyes: Positive for discharge and eye pain; no change in vision, blurry vision, double vision, dry eyes, visual disturbances, floaters, bulging eyes, light sensitivity, spots in vision or tunnel vision ENT ENT: No abnormal hearing, ear pain, ear discharge, ear pressure, hearing loss, post nasal drip or sinus pressure Resp Respiratory: No cough or chest congestion Cardio Cardiology: No excessive sweating, chest pain at rest, chest pain with exertion, shortness of breath, dyspnea on exertion, irregular heart rhythm, generalized swelling or leg pain with exertion Gastro GI: No abdominal pain, change in stool character or change in bowel habits Musc Musculoskeletal: No joint pain, back pain or limited range of motion Skin Skin: No change in hair or sores Neuro Neurology: No abnormal hearing, abnormal speech, abnormal movements or visual disturbances Psych Psychiatric: No abnormal sleep pattern Endo Endocrine: No excessive sweating, change in body appearance, cold intolerance or heat intolerance Aller/Imm Allergy/Immunologic: No food intolerance Lay[place]/Lymp Hematologic/Lymphatic: No easy bruising Exam Const General: cooperative, healthy appearing, no acute distress, comfortable Nutritional Appearance: average body habitus Orientation: alert, awake, oriented x3 HENMT Head: normal to inspection Ears: hearing grossly normal bilaterally, external ears normal, TM's normal bilaterally, EAC's normal Nose: external nose normal, nares normal, septum normal, no nasal discharge Face and sinus: normal facial exam, sinuses nontender, face symmetric Mouth: tongue normal, lip normal, oral mucosae normal, oropharynx normal Teeth and gingiva: dentition normal, gingiva normal Throat: posterior oropharynx normal, tonsils normal, uvula midline Eyes Visual Florence: normal visual florence by confrontation Alignment and Position: alignment normal Periorbital: periorbital findings normal Eyelids: eyelids normal Conjunctivae: conjunctival abnormality (Injected with scant exudate of her eyelashes) left Neck Neck: normal visual inspection, full ROM, no lymphadenopathy, no meningeal signs, supple Neck mass: No Thyroid: thyroid normal Lymphatic: no lymphadenopathy noted Chest Chest palpation AND inspection: normal inspection of the chest Resp Effort AND Inspection: normal respiratory effort, able to speak in complete sentences, symmetric chest movement, no cough Auscultation: Bilateral: Clear to Auscultation Cardio Palpation: normal PMI Rate: regular rate Rhythm: regular rhythm Heart Sounds: S1 normal, S2 normal, no gallops, no murmurs, no rubs Pulses: radial pulses present GI Inspection: normal to inspection Skin General: no rashes or lesions noted Neuro General: alert, awake, oriented x3, gait normal Cognition: normal cognition Speech: speech normal Gait: normal gait Motor: muscle tone normal throughout Sensory Exam: no sensory deficits noted Extrem General: normal to inspection Psych Appearance: grossly normal Mental Status: mental status grossly normal Mood: congruent mood Affect: normal affect Speech and Movement: speech and movement normal Attitude: cooperative Thought Process: normal Thought Content: normal Judgment: judgment good Assessment AND Plan Problems 1. Conjunctivitis H10.9 Plan Tobrex drops as prescribed today called into the hospital pharmacy and [id number]. Appropriate eye hygiene is reinforced today with patient. Follow-up with PCP or ophthalmology in 2-3 days should symptoms not improve, sooner should symptoms worsen or any other concerns develop. Patient states acknowledging understanding all the above. This note was generated with [employer] dictation software. It may contain incorrect words, spelling, and punctuation that were not noted in checking the note before signing. Coding Level of Care Code Off vis,est,level 4 Diagnoses Conjunctivitis H10.9 09/25/17 0959 <Electronically signed by Candelario ENCINAS> Date Candelario Kay Kitty Lassiter Signature: Date (if applicable) CC: ALLERGIES ALLERGIES DATE TYPE / CODE NAME / CODE REACTION SEVERITY SOURCE 09/22/2017 Drug No Known Unknown [facility] Allergy/4160 Allergies/F00 Hospital 94408(SNOMED [id number](RXNOR Repository CT) M) ENCOUNTERS ENCOUNTERS ADMIT/DISCHARGE ACCOUNT ADMITTING ENCOUNTER LOCATION SOURCE NUMBER CLASS 08/28/2018 [id number] [facility]ulatory [facility] ing:MTLAB Repository 08/21/2018 [id number] [facility] ing:LAB.FUTUR Repository E 08/20/2018 [id number] [facility] [facility] ing:OPBI Repository 04/27/2018 [id number] [facility] [place] [facility] ing:MTLAB Repository 03/24/2018 [id number] [facility] [place] [facility] ing:PSN Repository 03/04/2018 [id number] Amb[facility] ing:MRI Repository 02/19/2018 [id number] [facility] [facility] ing:MTLAB Repository 02/13/2018 [id number] [facility] [facility] ing:MTLAB Repository 02/03/2018 [id number] Amb[facility] ing:LAB.FUTUR Repository E 02/03/2018 [id number] [facility] [place] [facility] ing:EMPH Repository 01/22/2018 [id number] Amb[facility] [place] [facility] ing:LAB.FUTUR Repository E 01/05/2018 [id number] [facility] [place] [facility] ing:MTLAB Repository 10/02/2017 [id number] Ambulatory [facility] 2 [facility] ing:LAB.FUTUR Repository E 09/29/2017/ [id number] Ambulatory [facility] [facility] 7 [facility] ing:SDCRoom: Repository AC01 09/25/2017/ [id number] Ambulatory BMSBuilding:B [facility] 3 [facility] Repository PAYERS PAYERS ENCOUNTER GUARANTOR PAYER SUBSCRIBER SOURCE 08/28/2018 WILIAN Pleitez Primary Insurance:[facility] YOANDY Betancur [id number] [facility] KUNKLEDOB: [facility] 4[place]18[place] Number: Repository [id number]: 330 [id number] [phone]) Date:8033-93-01GD [address] [address]FWLAXMI, [place] [address]GE: CHECK WEBSITE 08/28/2018 Secondary NOT GIVENUNK [place] Insurance:SELF PAY [facility] Number: Effective Repository Date:2018-08-28 08/21/2018 WILIAN Pleitez Primary Insurance:[facility] YOANDY Betancur [id number] [facility] 1989[place]45[place] Number: Repository [address]Uca: 330 [id number] [phone] (HP) Date:0653-83-21DB [address] [address]VWMQIQW, [place] [address]KE: CHECK WEBSITE 08/21/2018 Secondary NOT GIVENUNK [place] Insurance:SELF PAY [facility] Number: Effective Repository Date:2018-08-17 08/20/2018 WILIAN Pleitez Primary Insurance:[facility] YOANDY Betancur [id number] [facility] 0726-74-10[place]EAnn[place], [place] Number: Repository [address]Lpi: 330 [id number] [phone] (HP) Date:4163-96-61OP [address] [address]WVZDGBYNM, [place] [address]NN: CHECK WEBSITE 08/20/2018 Secondary NOT GIVENUNK [place] Insurance:SELF PAY [facility] Number: Effective Repository Date:2018-08-10 04/27/2018 WILIAN Pleitez Primary Insurance:[facility] YOANDY Rivera [place] [id number] [facility] KUNKLEDOB: [facility] 2651-94-[place]GAnn[place], [place] Number: Repository [address]Djs: 330 [id number] [phone] () Date:4965-56-37VB [address] [address]SXZNBAXRK, [place] [address]EO: CHECK WEBSITE 04/27/2018 Secondary NOT GIVENUNK [place] Insurance:SELF PAY [facility] Number: Effective Repository Date:2018-04-27 03/24/2018 WILIAN Pleitez Primary Insurance:[facility] YOANDY Rivera [place] [id number] [facility] KUNKLEDOB: [facility] 7047-45-49MDDAnn[place], [place] Number: Repository [address]Kzg: 330 [id number] [phone] () Date:3607-22-67VC [address] [address]DFWJVFELN, [place] [address]OF: CHECK WEBSITE 03/24/2018 Secondary NOT GIVENUNK [place] Insurance:SELF PAY [facility] Number: Effective Repository Date:2018-03-09 03/04/2018 WILIAN Pleitez Primary Insurance:[facility] YOANDY Betancur [id number] [facility] 5942-33-25TFQAnn[place], [place] Number: Repository [address]Lxg: 330 [id number] [phone] () Date:4941-82-88VD [address] [address]UBAMJSUWF, [place] [address]BS: CHECK WEBSITE 03/04/2018 Secondary NOT GIVENUNK [place] Insurance:SELF PAY [facility] Number: Effective Repository Date:2018-02-18 02/19/2018 WILIAN Pleitez Primary Insurance:[facility] YOANDY Betancur [id number] [facility] 3052-06-36[place]CIAnn[place], [place] Number: Repository [address]Qcn: 330 [id number] [phone] (HP) Date:7308-03-29MO [address] [address]NPYUHDBJK, [place] [address]MG: CHECK WEBSITE 02/19/2018 Secondary NOT GIVENUNK [place] Insurance:SELF PAY [facility] Number: Effective Repository Date:2018-02-19 02/13/2018 Wilian Pleitez Primary Insurance:[facility] YOANDY [id number] [facility] KUNKLEDOB: [facility] 5025-62-70[place]SH[place], [place] Number: Repository [address]Mfq: 330 [id number] [phone] (HP) Date:3777-62-87JL [address] [address]HQHXBZAAY, [place] [address]FJ: CHECK WEBSITE 02/13/2018 Secondary NOT GIVENUNK [place] Insurance:SELF PAY [facility] Number: Effective Repository Date:2018-02-13 02/03/2018 Wilian Pleitez Primary Insurance:[facility] YOANDY [id number] [facility]: [facility] 5790-74-90RHGMalcom, [place] Number: Repository [address]Xef: 330 [id number] [phone] () Date:2794-32-51VQ [address] [address]WFZSZVGNQ, [place] [address]MP: CHECK WEBSITE 02/03/2018 Secondary NOT GIVENUNK [place] Insurance:SELF PAY [facility] Number: Effective Repository Date:2018-01-23 02/03/2018 Wilian Pleitez Primary NOT GIVENUNK [place] [id number] Insurance:SELF PAY [place] Number: Effective Repository [id number]: (330) Date:2018-02-03 [phone] ([phone] 01/22/2018 Wilian Pleitez Primary Insurance:[facility] YOANDY [id number] [facility] KUNKLEDOB: [facility] 0518-07-01HLMMal[place], [place] Number: Repository [address]Bwh: 330 [id number] [phone] (HP) Date:4620-82-34IR [address] [address]GRRFUPBUW, [place] [address]IT: CHECK WEBSITE 01/22/2018 Secondary NOT GIVENUNK [place] Insurance:SELF PAY [facility] Number: Effective Repository Date:2018-01-21 01/05/2018 Wilian Pleitez Primary Insurance:[facility] YOANDY Betancur [id number] [facility] KUNKLEDOB: [facility] 2141-49-43WXKMal[place], [place] Number: Repository [address]Hho: 330 [id number] [phone] (HP) Date:1121-89-97GB [address] [address]APOTKAZBI, [place] [address]ZW: CHECK WEBSITE 01/05/2018 Secondary NOT GIVENUNK [place] Insurance:SELF PAY [facility] Number: Effective Repository Date:2018-01-05 10/02/2017 Wilian Pleitez Primary Insurance:[facility] YOANDY Rivera [place] [id number] [facility] KUNKLEDOB: [facility] 3174-19-79UQNMal[place], [place] Number: Repository [address]Vva: 330 [id number] [phone] (HP) Date:7039-01-09QK [address] [address]OGXZQRKLI, [place] [address]ZT: CHECK WEBSITE 10/02/2017 Secondary NOT GIVENUNK [place] Insurance:SELF PAY [facility] Number: Effective Repository Date:2017-10-02 09/29/2017 Wilian Pleitez Primary Insurance:[facility] YOANDY Rivera [place] [id number] [facility]ALTHKLEDOB: [facility] 0579-27-92EBSMal[place], [place] Number: Repository [address]Yvl: 330 [id number] [phone] (HP) Date:7598-88-96SQ [address] [address]HMEOANRMF, [place] [address]SJ: CHECK WEBSITE 09/29/2017 Secondary NOT GIVENUNK [place] Insurance:SELF PAY [facility] Number: Effective Repository Date:2017-08-29 09/25/2017 Wilian Pleitez Primary Insurance:[facility] YOANDY [place] [id number] [facility] KUNKLEDOB: [facility] 6447-59-15QUQMal[place], [place] Number: Repository [address]Vhb: (676) [id number] [phone] () Date:1663-80-82UE [address] [address]TLVJLFGTI, [place] [address]GZ: CHECK WEBSITE 09/25/2017 Secondary NOT GIVENUNK [place] Insurance:SELF PAY [facility]: Effective Repository Date:2017-09-25
== END ==
PROVIDERS: Family Provider Family Medicine; PCP Family Medicine; Referring Provider Obstetrics & Gynecology; Visit Provider Obstetrics & Gynecology
DX: Z12.31 Encounter for screening mammogram for malignant neoplasm of breast (principal); Z80.3 Family history of malignant neoplasm of breast
CPT/HCPCS: 77063; 77067

== ENCOUNTER → 2018-08-21 07:37 | Outpatient (CLI) | payer OTHER, SELFPAY ==
--- OUTSIDE RECORDS SUMMARY | 2018-10-25 14:34 | XMS RPT_ITS ---
:1975 Author Organization [place] Support Name Relationship Address Phone KODYWILIAN Unavailable [address] + [place] [address] WC Unavailable [address] + [place] [address] WILIAN ROSE Unavailable [address] + [place] [address] [facility] Unavailable [address] + [place] [address] WILIAN ROSE Unavailable [address] + [place] [address] [facility] Unavailable [address] + [place] [address] WILIAN ROSE Unavailable [address] + [place] [address] [facility] Unavailable [address] + [place] [address] WILIAN ROSE Unavailable [address] + [place] [address] [facility] Unavailable [address] + [place] [address] WILIAN ROSE Unavailable [address] + [place] [address] [facility] Unavailable [address] + [place] [address] WILIAN ROSE Unavailable [address] + [place] [address] [facility] Unavailable [address] + [place] [address] WILIAN ROSE Unavailable [address] + [place] [address] WC Unavailable [address] + [place] [address] KODYRAMONWILIAN Unavailable [address] + [place] [address] WC Unavailable [address] + [place] [address] KODY WILIAN Unavailable [address] + [place] [address] WC Unavailable [address] + [place] [address] KODYRAMONWILIAN Unavailable [address] + [place] [address] WC Unavailable [address] + [place] [address] KODY WILIAN Unavailable [address] + [place] [address] WC Unavailable [address] + [place] [address] KODYRAMONWILIAN Unavailable [address] + [place] [address] WC Unavailable [address] + [place] [address] KODYRAMONWILIAN Unavailable [address] + [place] [address] [facility] Unavailable [address] + [place] [address] KODYRAMONWILIAN Unavailable [address] + [place] [address] WC Unavailable [address] + [place] [address] Care Team Providers Name Role Phone Arianna Masters Attending Unavailable Arianna Masters Referring Unavailable Malys, Lesli Primary Care Unavailable Radha Gonzalez Attending Unavailable Radha Gonzalez Referring Unavailable Malys, Lesli Primary Care Unavailable Arianna Masters Attending Unavailable Arianna Masters Referring Unavailable Malys, Lesli Primary Care Unavailable Miedel, Shelli Attending Unavailable Malys, Lesli Primary Care Unavailable Miedel, Shelli Referring Unavailable Ernesto, Mustapha S. Attending Unavailable Ernesto, Mustapha S. Referring Unavailable Malys, Lesli Primary Care Unavailable Malys, Lesli Attending Unavailable Malys, Lesli Referring Unavailable Malys, Lesli Primary Care Unavailable ASSESSMENT, HEALTH RISK Attending Unavailable ASSESSMENT, HEALTH RISK Referring Unavailable Malys, Lesli Primary Care Unavailable REBA, LELA Attending Unavailable REBA, LELA Referring Unavailable Placido, Gustabo Primary Care Unavailable REBA, LELA Attending Unavailable BRITTON, LELA Referring Unavailable Placido, Gustabo Primary Care Unavailable Malys, Lesli Attending Unavailable Placido, Gustabo Primary Care Unavailable Malys, Lesli Referring Unavailable Cnadelario Tang Attending Unavailable Placido, Gustabo Referring Unavailable Placido, Gustabo Primary Care Unavailable Nanda, Osmar Attending Unavailable Nanda, Osmar Referring Unavailable Placido, Gustabo Primary Care Unavailable Malys, Lesli Attending Unavailable Malys, Lesli Primary Care Unavailable Malys, Lesli Referring Unavailable Nanda, Osmar Attending Unavailable Osmar Vee Referring Unavailable Malys, Lesli Primary Care Unavailable Malys, Lesli Attending Unavailable Malys, Lesli Referring Unavailable Malys, Lesli Primary Care Unavailable PROBLEMS PROBLEMS DATE TYPE CONDITION / CODE ATTENDING STATUS SOURCE 08/21/2018 Unknown E55.9 - Vitamin D Malys, Lesli Active [place] deficiency, Community unspecified / Hospital E55.9(ICD-10) Repository [...] Unknown R53.1 - Weakness / Ernesto, Active [place] R53.1(ICD-10) [facility] Hospital Repository 02/13/2018 Unknown 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, 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 / [facility] H20.9(ICD-10) Hospital Repository 02/03/2018 Unknown R63.1 - Polydipsia / Malys, Lesli Active [place] R63.1(ICD-10) [facility] Hospital Repository 01/28/2018 Unknown R76.8 - Other LELA BRITTON Active [place] specified abnormal [facility] findings in serum / Repository R76.8(ICD-10) 09/29/2017 Unknown G89.18 - Other acute Osmar Vee Active [place] postprocedural pain [facility] / G89.18(ICD-10) Hospital Repository PROCEDURES PROCEDURES No Procedure Records FoundRESULTS RESULTS CBC W/DIFF, AUTOMATED Collected: 08/28/2018 Status: F Source: [place] 7:20 AM [facility] REPOSITORY TYPE CODE TESTS RESULT OUT [...] Lymph 1.45 Performed By: #### L100.0100 #### [facility] [address] [place], [address] URINALYSIS, ROUTINE Collected: 08/28/2018 Status: F Source: [place] (DIPSTICK) 7:20 AM [facility] REPOSITORY Order Comment: How was Urine Obtained? [...] 25 ESTERASE Performed By: #### L400.2010 #### [facility] [address] [place], [address] PROTEIN+CREATININE Collected: Status: F Source: [place] RATIO,URINE 08/28/2018 7:20 AM [facility] REPOSITORY TYPE CODE TESTS RESULT OUT OF RANGE REFERENCE UNITS LAB L501.1200 NO RANGE EST. mg/dL Normal UR CREAT 236.00 LAB L501.1930 <11.9 mg/dL High 26.5 PROTEIN,UR.R AN. LAB L501.1940 0-200 mg/g CRE Normal PROT:CRE 112 RATIO Performed By: #### L501.0900 #### [facility] [address] [place], [address] COMPREHENSIVE METABOLIC Collected: 08/28/2018 Status: F Source: [place] BISHOP 7:20 AM [facility] REPOSITORY TYPE CODE TESTS RESULT OUT OF [...] GAP 8 Performed By: #### L500.4050 #### [facility] [address] [place], [address] VITAMIN D,25 HYDROXY Collected: 08/21/2018 Status: F Source: [place] 7:41 AM [facility] REPOSITORY TYPE CODE TESTS RESULT OUT OF RANGE REFERENCE UNITS LAB L506.1000 29.95-100.01 ng/mL Normal Vitamin D 87.0 25-OH Result Comment: Vitamin D 25(OH) Status Range Deficiency <20 ng/mL (50nmol/L) Insuffciency 20 - 30 ng/mL (50 - 75 nmol/L) Sufficiency 30 - 100 ng/mL (75 - 250 nmol/L) Toxicity >100 ng/mL (>250 nmol/L) Performed By: #### L506.1000 #### [facility] [address] [place], [address] SCREENING MAMM (CAD), Observed: 08/20/2018 Status: F Source: [place] BILAT 7:16 AM [facility] REPOSITORY [facility] Imaging Services [address] [place] [address] SCREENING MAMM (CAD), BILAT MR#: [id number] Acct: [id number] Name: YOANDY ROSE Rep #: [id number] : 1975 F 43 From: Victorino Qureshi MD PCP: Lesli Burnham DO Status: [facility] Study: SCREENING MAMM (CAD), BILAT Date of Exam: 08/20/18 Exam# [id number] Ordering Dr: Osmar Vee MD MAMMOGRAPHY - [...] delay biopsy of a clinically suspicious abnormality. [id number] Electronically Signed: Victorino Qureshi MD at 10:12 EST Tel [phone], Service support , CC: Osmar Vee MD; Lesli Burnham DO Employee Benefits Manager: Signed CBC W/DIFF, AUTOMATED Collected: 04/27/2018 Status: F Source: [place] 10:54 AM [facility] REPOSITORY TYPE CODE TESTS RESULT OUT OF [...] 1.43 Performed By: #### L100.0100, L101.9900 #### [facility] [address] [place], [address] ERYTHROCYTE SED RATE Collected: 04/27/2018 Status: F Source: [place] 10:54 AM [facility] REPOSITORY TYPE CODE TESTS RESULT OUT OF RANGE REFERENCE UNITS LAB L102.0000 0-20 mm/hr Normal SED RATE 2 Performed By: #### L100.0100, L101.9900 #### [facility] [address] [place], [address] URINALYSIS, ROUTINE Collected: 04/27/2018 Status: F Source: [place] (DIPSTICK) 10:54 AM [facility] REPOSITORY Order Comment: How was Urine Obtained? [...] ESTERASE Negative Performed By: #### L400.2010 #### [facility] [address] [facility] [place], [address] PROTHROMBIN TIME W/INR Collected: 04/27/2018 Status: F Source: [place] 10:54 AM [facility] REPOSITORY TYPE CODE TESTS RESULT OUT OF RANGE REFERENCE UNITS LAB L300.4150 11.7-14.9 SECONDS Normal PROTIME 13.6 LAB L300.4200 Normal INR 1.0 Performed By: #### L300.3900, L300.4310 #### [facility] [address] [facility] [facility] [address] PARTIAL THROMBOPLAST Collected: 04/27/2018 Status: F Source: [facility] 10:54 AM [facility] REPOSITORY TYPE CODE TESTS RESULT OUT OF RANGE REFERENCE UNITS LAB L300.4310 24.1-36.2 Seconds Normal PTT 32.6 Performed By: #### L300.3900, L300.4310 #### [facility] [address] PROTEIN+CREATININE Collected: Status: F Source: [place] RATIO,URINE 04/27/2018 10:54 AM [facility] REPOSITORY TYPE CODE TESTS RESULT OUT OF RANGE REFERENCE UNITS LAB L501.1200 NO RANGE EST. mg/dL 18.20 Normal UR CREAT LAB L501.1930 <11.9 mg/dL < 6.0 Normal PROTEIN,UR. RAN. LAB L501.1940 0-200 mg/g CRE Test Normal not performed PROT:CRE RATIO Performed By: #### L501.0900 #### [facility] [address] [facility] [facility] [address] COMPREHENSIVE METABOLIC Collected: 04/27/2018 Status: F Source: [place] PROFIL 10:54 AM [facility] REPOSITORY TYPE CODE TESTS RESULT OUT OF [...] Performed By: #### L500.4050, L501.6710, L505.7010 #### [facility] [address] [place], [place], [address] CRP Collected: 04/27/2018 Status: F Source: [place] 10:54 AM [facility] REPOSITORY TYPE CODE TESTS RESULT OUT OF RANGE REFERENCE UNITS LAB L501.6710 0.0-3.0 mg/L Normal < 2.90 C-REACTIVE PROT Result Comment: C-Reactive Protein (CRP) provides useful information for the diagnosis, therapy and monitoring of inflammatory processes and associated diseases. For the evaluation of Relative Risk for Cardiovascular Disease, a High Sensitivity CRP (HSCRP) should be ordered. Performed By: #### L500.4050, L501.6710, L505.7010 #### [facility] [address] [facility] [address] [address] [place], [address] RHEUMATOID FACTOR Collected: 04/27/2018 Status: F Source: [place] 10:54 AM [facility] REPOSITORY TYPE CODE TESTS RESULT OUT OF RANGE REFERENCE UNITS LAB L505.7010 <15 IU/mL Normal RHEUMATOID FAC < 10.0 Performed By: #### L500.4050, L501.6710, L505.7010 #### [facility] [address] [address] [facility] [address] [place], [place], [address] LUPUS ANTICOAGULANT COMP Collected: 04/27/2018 Status: F Source: [place] 10:54 AM [facility] REPOSITORY TYPE CODE TESTS RESULT OUT OF [...] lupus anticoagulant was detected. Performed at: - [facility] [id number] Sales And Business Development Manager: John Gonzales MD, Phone: [phone] Performed By: #### L4500.0100 #### [facility] (refer to report for specific site) refer to report for address and phone number HEPATITIS B SURFACE Collected: 04/27/2018 Status: F Source: [facility] 10:54 AM [facility] REPOSITORY TYPE CODE TESTS RESULT OUT OF RANGE REFERENCE UNITS LAB L3100.0400 Negative Normal HB Negative SURF AG Result Comment: Performed at: CB - [facility] [address] [id number] Sales And Business Development Manager: Naveen Lopes PhD, Phone: [phone] Performed at: - [facility] [address] [id number] Sales And Business Development Manager: John Gonzales MD, Phone: [phone] Performed By: #### L3100.0390, L3100.0528, L3100.0625, L3100.5700, L3100.5800, L4500.1102, L4500.9300, L4600.0100 #### [facility] (refer to report for specific site) refer to report for address and phone number HEP B SURFACE Collected: 04/27/2018 Status: F Source: [place] ANTIBODIES 10:54 AM [facility] REPOSITORY TYPE CODE TESTS RESULT OUT OF [...] 04/27/2018 Status: F Source: [place] 10:54 AM [facility] REPOSITORY TYPE CODE TESTS RESULT OUT OF RANGE REFERENCE UNITS LAB L3100.0650 0.0-0.9 s/co ratio Normal HEP C AB <0.1 Result Comment: Negative: < 0.8 Indeterminate: 0.8 - 0.9 Positive: > 0.9 The CDC recommends that a positive HCV antibody result be followed up with a HCV Nucleic Acid Amplification test (155045). Performed By: #### L3100.0390, L3100.0528, L3100.0625, L3100.5700, L3100.5800, L4500.1102, L4500.9300, L4600.0100 #### [facility] (refer to report for specific site) refer to report for address and phone number COMPLEMENT C3 Collected: 04/27/2018 Status: F Source: [place] 10:54 AM [facility] REPOSITORY TYPE CODE TESTS RESULT OUT OF RANGE REFERENCE UNITS LAB L3100.5700 82-167 mg/dL Normal COMP C3 119 Performed By: #### L3100.0390, L3100.0528, L3100.0625, L3100.5700, L3100.5800, L4500.1102, L4500.9300, L4600.0100 #### [facility] (refer to report for specific site) refer to report for address and phone number COMPLEMENT C4 Collected: 04/27/2018 Status: F Source: [place] 10:54 AM [facility] REPOSITORY TYPE CODE TESTS RESULT OUT OF RANGE REFERENCE UNITS LAB L3100.5800 14-44 mg/dL Normal COMP C4 18 Performed By: #### L3100.0390, L3100.0528, L3100.0625, L3100.5700, L3100.5800, L4500.1102, L4500.9300, L4600.0100 #### [facility] (refer to report for specific site) refer to report for address and phone number HEXAGONAL PHASE Collected: 04/27/2018 Status: F Source: [place] PHOSPHOLIPID 10:54 AM [facility] REPOSITORY TYPE CODE TESTS RESULT OUT OF [...] 04/27/2018 Status: F Source: [place] 10:54 AM [facility] REPOSITORY TYPE CODE TESTS RESULT OUT OF RANGE REFERENCE UNITS LAB L4500.9300 0.0-23.0 sec Normal Thrombin Time 18.6 Performed By: #### L3100.0390, L3100.0528, L3100.0625, L3100.5700, L3100.5800, L4500.1102, L4500.9300, L4600.0100 #### [facility] (refer to report for specific site) refer to report for address and phone number CCP IGG ANTIBODIES Collected: 04/27/2018 Status: F Source: [place] 10:54 AM [facility] REPOSITORY TYPE CODE TESTS RESULT OUT OF RANGE REFERENCE UNITS LAB L4600.0100 0-19 units Normal ANTI-CCP 5 [id number] Result Comment: Negative <20 Weak positive 20 - 39 Moderate positive 40 - 59 Strong positive >59 Performed By: #### L3100.0390, L3100.0528, L3100.0625, L3100.5700, L3100.5800, L4500.1102, L4500.9300, L4600.0100 #### [facility] (refer to report for specific site) refer to report for address and phone number ANTINUCLEAR ANTIBODIES Collected: 04/27/2018 Status: F Source: [place] DIRECT 10:54 AM [facility] REPOSITORY TYPE CODE TESTS RESULT OUT OF REFERENCE UNITS RANGE LAB L3100.5475 Negative High Positive RISHABH-DIRECT Result Comment: Performed at: - [facility] [id number] Sales And Business Development Manager: Naveen Lopes PhD, Phone: [phone] Performed By: #### L3100.5475, L3100.5500, L3100.9100, L3410.0500, L3410.0700, L3410.1110, L3410.4010 #### [facility] (refer to report for specific site) refer to report for address and phone number ANTI-DSDNA AB Collected: 04/27/2018 Status: F Source: [place] 10:54 AM [facility] REPOSITORY TYPE CODE TESTS RESULT OUT OF [...] Status: F Source: [place] A/B 10:54 AM [facility] REPOSITORY TYPE CODE TESTS RESULT OUT OF RANGE REFERENCE UNITS LAB L3100.9200 0.0-0.9 AI Normal Anti-SS-A < 0.2 LAB L3100.9300 0.0-0.9 AI Normal Anti-SS-B < 0.2 Performed By: #### L3100.5475, L3100.5500, L3100.9100, L3410.0500, L3410.0700, L3410.1110, L3410.4010 #### [facility] (refer to report for specific site) refer to report for address and phone number ANTI-RADHA Collected: 04/27/2018 Status: F Source: [place] 10:54 AM [facility] REPOSITORY TYPE CODE TESTS RESULT OUT OF RANGE REFERENCE UNITS LAB L3410.0500 0.0-0.9 AI Normal ANTI-RADHA <0.2 Performed By: #### L3100.5475, L3100.5500, L3100.9100, L3410.0500, L3410.0700, L3410.1110, L3410.4010 #### [facility] (refer to report for specific site) refer to report for address and phone number [id number] AB Collected: Status: F Source: [place] 04/27/2018 10:54 AM [facility] REPOSITORY TYPE CODE TESTS RESULT OUT OF REFERENCE UNITS RANGE LAB L3410.0700 0.0-0.9 AI High ANTISCLER 1.2 Performed By: #### L3100.5475, L3100.5500, L3100.9100, L3410.0500, L3410.0700, L3410.1110, L3410.4010 #### [facility] (refer to report for specific site) refer to report for address and phone number ANTIEXTRACTABLE NUG AG Collected: 04/27/2018 Status: F Source: [place] 10:54 AM [facility] REPOSITORY TYPE CODE TESTS RESULT OUT OF RANGE REFERENCE UNITS LAB L3410.1200 0.0-0.9 AI High FREEZING ROOM WORKER Ab 1.6 LAB L3410.1300 0.0-0.9 AI Normal ROMERO Ab <0.2 Performed By: #### L3100.5475, L3100.5500, L3100.9100, L3410.0500, L3410.0700, L3410.1110, L3410.4010 #### [facility] (refer to report for specific site) refer to report for address and phone number ANTI-CENTROMERE B AB Collected: 04/27/2018 Status: F Source: [place] 10:54 AM [facility] REPOSITORY TYPE CODE TESTS RESULT OUT OF RANGE REFERENCE UNITS LAB L3410.4010 0.0-0.9 AI Normal ANTI-CENT <0.2 B Performed By: #### L3100.5475, L3100.5500, L3100.9100, L3410.0500, L3410.0700, L3410.1110, L3410.4010 #### [facility] (refer to report for specific site) refer to report for address and phone number PELVIS 1 OR 2 VIEWS Observed: 04/27/2018 Status: F Source: [place] 10:53 AM [facility] REPOSITORY [facility] Imaging Services [address] [place] [address] Pelvis 1 or 2 Views MR#: [id number] Acct: [id number] Name: YOANDY ROSE Rep #: [id number] : 1975 F 43 From: Trent Cade MD PCP: Lesli Burnham DO Status: REG CLI Study: Pelvis 1 or 2 Views Date of Exam: 04/27/18 Exam# [id number] Ordering Dr: Arianna Masters MD STUDY: X-RAY [...] CC: Lesli Burnham DO; Arianna Masters MD Employee Benefits Manager: Signed NCS AND/OR EMG Observed: 03/24/2018 Status: F Source: [place] PATIENT 10:48 AM [facility] REPOSITORY [facility] Pulmonary Services/Neurology [address] [facility] [place] [address] MR#: [id number] Acct: [id number] Name: YOANDY ROSE Rep #: [id number] : 1975 43 From: Ceferino Bal MD Referring Dr: Radha Gonzalez, MINE TECHNICIAN Status: REG CLI Ordering Dr: Date: Location: [facility] Sex: F C NCS and/or EMG [...] tests however she tells me her rheumatologic strip deburrer does not feel that these are significant. [...] Bal MD> Date Ceferino Bal MD CC: MINE TECHNICIAN Radha Gonzalez; Lesli Burnham DO; Ceferino Bal MD Date Dictated: 03/24/18 1036 Date Transcribed: 03/24/18 103 Employee Benefits Manager: NF Signed SPINE THORACIC W/WO Observed: 03/04/2018 Status: F Source: [place] CONTRAST 3:16 PM [facility] REPOSITORY [facility] Imaging Services [address] [place] [address] Spine Thoracic W/WO Contrast MR#: [id number] Acct: [id number] Name: YOANDY ROSE Rep #: [id number] : 1975 F 43 From: Marco Carias MD PCP: Lesli Burnham DO Status: REG CLI Study: Spine Thoracic W/WO Contrast Date of Exam: 03/04/18 Exam# [id number] Ordering Dr: Shelli Starr MD STUDY: MRI [...] CC: Shelli Starr MD; Lesli Burnham DO Employee Benefits Manager: Signed SPINE CERVICAL W/WO Observed: 03/04/2018 Status: F Source: [place] CONTRAST 3:16 PM [facility] REPOSITORY [facility] Imaging Services [address] [place] [address] Spine Cervical W/WO Contrast MR#: [id number] Acct: [id number] Name: YOANDY ROSE Rep #: [id number] : 1975 F 43 From: Marco Carias MD PCP: Lesli Burnham DO Status: REG CLI Study: Spine Cervical W/WO Contrast Date of Exam: 03/04/18 Exam# [id number] Ordering Dr: Shelli Starr MD STUDY: MRI [...] CC: Shelli Starr MD; Lesli Burnham DO Employee Benefits Manager: Signed BRAIN W/WO CONTRAST Observed: 03/04/2018 Status: F Source: [place] 3:16 PM [facility] REPOSITORY [facility] Imaging Services [facility] [place] [address] Brain W/WO Contrast MR#: [id number] Acct: [id number] Name: YOANDY ROSE Rep #: [id number] : 1975 F 43 From: Marco Carias MD PCP: Lesli Burnham DO Status: REG CLI Study: Brain W/WO Contrast Date of Exam: 03/04/18 Exam# [id number] Ordering Dr: Shelli Starr MD STUDY: MRI [...] CC: Shelli Starr MD; Lesli Burnham DO Employee Benefits Manager: Signed SPINE LUMBAR W/WO Observed: 03/04/2018 Status: F Source: [place] CONTRAST 3:16 PM [facility] REPOSITORY [facility] Imaging Services [address] [place] [address] Spine Lumbar W/WO Contrast MR#: [id number] Acct: [id number] Name: YOANDY ROSE Rep #: [id number] : 1975 F 43 From: Marco Carias MD PCP: Lesli Burnham DO Status: REG CLI Study: Spine Lumbar W/WO Contrast Date of Exam: 03/04/18 Exam# [id number] Ordering Dr: Shelli Starr MD STUDY: MRI [...] CC: Shelli Starr MD; Lesli Burnham DO Employee Benefits Manager: Signed ACETYLCHOLINE RECEPTOR Collected: 02/19/2018 Status: F Source: [place] 12:12 PM [facility] REPOSITORY Order Comment: Comments: ANTI MUSK [id number] SERUM/REF Has Patient had Radioactive Injection for X-ray?: N TYPE CODE TESTS RESULT OUT OF RANGE REFERENCE UNITS LAB L3300.0600 0.00-0.24 nmol/L Normal ACTYL < 0.03 [id number] Result Comment: Negative: 0.00 - 0.24 Borderline: 0.25 - 0.40 Positive: > 0.40 Performed By: #### L3300.0600, L3410.0100, L3410.0200 #### [facility] (refer to report for specific site) refer to report for address and phone number [facility] OPERATIONS ASSOCIATE AB, Collected: 02/19/2018 Status: F Source: [place] BLOCKING 12:12 PM [facility] REPOSITORY Order Comment: Comments: ANTI MUSK [id number] SERUM/REF Has Patient had Radioactive Injection for X-ray?: N TYPE CODE TESTS RESULT OUT OF RANGE REFERENCE UNITS LAB L3410.0100 0-25 % Normal [facility] REC 13 [address]97 Result Comment: Negative: 0 - 25 Borderline: 26 - 30 Positive: >30 Results for this test are for research purposes only by the assay's working supervisor. The performance characteristics of this product have [...] 02/19/2018 Status: F Source: [place] 12:12 PM [facility] REPOSITORY Order Comment: Comments: ANTI MUSK [id number] SERUM/REF Has Patient had Radioactive Injection for X-ray?: N TYPE CODE TESTS RESULT OUT OF RANGE REFERENCE UNITS LAB L3410.0200 0-20 % Normal [facility] AB <12 [id number] Result Comment: Negative: <21 Equivocal: 21 - 25 Positive: >25 The assay is linear between values of 12 and 64. Those <12 and >64 are reported as such. No single value for ACR-modulating antibody should be used as a sole basis for diagnosis or response to therapy. Performed at: [address] [id number] Sales And Business Development Manager: John Gonzales MD, Phone: [phone] Performed By: #### L3300.0600, L3410.0100, L3410.0200 #### [facility] (refer to report for specific site) refer to report for address and phone number MISCELLANEOUS LAB Collected: 02/19/2018 Status: F Source: [place] PROCEDURE 12:12 PM [facility] REPOSITORY Order Comment: Comments: ANTI MUSK [id number] SERUM/REF Test(s) Ordered: ANTI MUSK [id number] SERUM/REF TYPE CODE TESTS RESULT OUT OF RANGE REFERENCE UNITS LAB L801.1541 Normal [facility] LAB TEST Result Comment: TEST RESULT LIMITS [...] 2014;52:90-100. 2. Cookie GUERRERO et al. PNAS 2013;110(70);01280-12914. 3. Anandi A et al. Autoimmunity Reviews 2013;12:931-5. 4. Abdieli E et al. Neurology 2006;67:505-507. This test was developed and its performance characteristics determined by [facility]. It has not been cleared or approved by the Food and Drug Administration. TESTING PERFORMED AT [facility]. ORIGINAL REPORT ON FILE IN LAB CONTAINS ADDITIONAL TEST SITE INFORMATION. Performed By: #### L801.1541 #### [facility] [address] [place], [address] VITAMIN B12 Collected: 02/13/2018 Status: F Source: [place] 2:05 PM [facility] REPOSITORY TYPE CODE TESTS RESULT OUT OF REFERENCE UNITS RANGE LAB L503.0105 211-911 pg/mL High Vitamin B12 915 Performed By: #### L503.0105, L506.1000 #### [facility] [address] [place], [address] VITAMIN D,25 HYDROXY Collected: 02/13/2018 Status: F Source: [place] 2:05 [facility] REPOSITORY TYPE CODE TESTS RESULT OUT OF REFERENCE UNITS RANGE LAB L506.1000 29.95-100.01 ng/mL Low Vitamin D 19.7 25-OH Result Comment: Vitamin D 25(OH) Status Range Deficiency <20 ng/mL (50nmol/L) Insuffciency 20 - 30 ng/mL (50 - 75 nmol/L) Sufficiency 30 - 100 ng/mL (75 - 250 nmol/L) Toxicity >100 ng/mL (>250 nmol/L) Performed By: #### L503.0105, L506.1000 #### [facility] [address] [place], [address] IRON+IRON BINDING Collected: 02/13/2018 Status: F Source: [facility] 2:05 [facility] REPOSITORY Order Comment: Is Patient Taking Vitamins or Folic Acid Supplements? N TYPE CODE TESTS RESULT OUT OF RANGE REFERENCE UNITS LAB L503.6075 250-450 ug/dL TIBC Normal 392 LAB L503.6150 50-170 ug/dL IRON Normal 72 LAB L503.6250 15.0-55.0 % IRON Normal SATURATION 18.4 Performed By: #### L503.6030, L503.6550, L506.0250 #### [facility] [address] [place], [address] FERRITIN Collected: 02/13/2018 Status: F Source: [place] 2:05 [facility] REPOSITORY Order Comment: Is Patient Taking Vitamins or Folic Acid Supplements? N TYPE CODE TESTS RESULT OUT OF RANGE REFERENCE UNITS LAB L503.6550 8-252 ng/mL Normal FERRITIN 18 Performed By: #### L503.6030, L503.6550, L506.0250 #### [facility] [address] [place], [address] FOLATES, (FOLIC ACID) Collected: 02/13/2018 Status: F Source: [place] 2:05 PM [facility] REPOSITORY Order Comment: Is Patient Taking Vitamins or Folic Acid Supplements? N TYPE CODE TESTS RESULT OUT OF RANGE REFERENCE UNITS LAB L506.0250 3.1-55.4 ng/mL Normal FOLATES 26.20 Performed By: #### L503.6030, L503.6550, L506.0250 #### [facility] [place], [address] CBC, EMPLOYEE Collected: 02/03/2018 Status: F Source: [place] 11:21 AM [facility] REPOSITORY TYPE CODE TESTS RESULT OUT OF [...] Lymph 1.58 Performed By: #### L100.0200 #### [facility] [place], [address] EMPLOYEE PROFILE Collected: 02/03/2018 Status: F Source: [place] 11:21 AM [facility] REPOSITORY TYPE CODE TESTS RESULT OUT OF [...] LDH 175 Performed By: #### L500.2900 #### [facility] [address] [place], [address] URINALYSIS, EMPLOYEE Collected: 02/03/2018 Status: F Source: [place] 11:21 AM [facility] REPOSITORY TYPE CODE TESTS RESULT OUT OF [...] ESTERASE Negative Performed By: #### L400.0100 #### [facility] [address] [place], [address] NICOTINE URINE DRUG Collected: 02/03/2018 Status: F Source: [place] SCREEN 11:21 AM [facility] REPOSITORY TYPE CODE TESTS RESULT OUT OF [...] of Nicotine. Performed By: #### L505.6240 #### [facility] [address] [facility] [place], [address] HEMOGLOBIN A1C Collected: 02/03/2018 Status: F Source: [place] 11:20 AM [facility] REPOSITORY TYPE CODE TESTS RESULT OUT OF RANGE REFERENCE UNITS LAB L501.9985 4.2-6.3 % Normal HGB A1C 5.0 Performed By: #### L501.9985 #### [facility] [address] [facility] [place] [place], [address] DOWNTIME REPORT Observed: 01/22/2018 Status: F Source: [place] 12:33 PM [facility] Medical Records Department [address] [facility] [place] [address] Downtime Report MR#: [id number] Acct: [id number] Name: YOANDY ROSE Rep #: [id number] : 1975 42 From: Messi Webber PCP: Gustabo Cummins DO Status: REG CLI This patient was seen during an EMR downtime January 05, 2018 - January 12, 2018. This patient may have a combination of paper and electronic documentation or all paper documentation. All documentation is viewable within the e-chart portion of [employer] for each patient visit. SJOGREN'S ANTIBODIES Collected: 01/22/2018 Status: F Source: [place] A/B 12:09 PM [facility] REPOSITORY TYPE CODE TESTS RESULT OUT OF RANGE REFERENCE UNITS LAB L3100.9200 0.0-0.9 AI Normal Anti-SS-A < 0.2 LAB L3100.9300 0.0-0.9 AI Normal Anti-SS-B < 0.2 Result Comment: Performed at: [address] [id number] Sales And Business Development Manager: Naveen Lopes PhD, Phone: [phone] Performed By: #### L3100.9100 #### [facility] (refer to report for specific site) refer to report for address and phone number ANTI-MITOCHONDRIAL AB Collected: Status: F Source: [place] 01/05/2018 11:00 AM [facility] REPOSITORY TYPE CODE TESTS RESULT OUT OF [...] 01/05/2018 Status: F Source: [place] 11:00 AM [facility] REPOSITORY TYPE CODE TESTS RESULT OUT OF RANGE REFERENCE UNITS LAB L3100.5500 Normal dsDNA AB Result Comment: TEST RESULT FLAG UNITS REF INTERVAL Antiextractable Nuclear Ag FREEZING ROOM WORKER Antibodies 1.7 High AI 0.0 - 0.9 [...] 01/05/2018 Status: F Source: [place] 11:00 AM [facility] REPOSITORY TYPE CODE TESTS RESULT OUT OF [...] - 0.9 Thyroglobulin Antibody measured by Sarai [place] [employer] Thyroid Peroxidase (TPO) Ab 14 IU/mL 0 - 34 TESTING PERFORMED AT [facility]. ORIGINAL REPORT ON FILE IN LAB CONTAINS ADDITIONAL TEST SITE INFORMATION. Performed By: #### L803.2200 #### [facility] (refer to report for specific site) refer to report for address and phone number CRP Collected: 10/02/2017 Status: F Source: [place] 4:37 PM [facility] REPOSITORY TYPE CODE TESTS RESULT OUT OF RANGE REFERENCE UNITS LAB L501.6710 0.0-3.0 mg/L Normal < 2.90 C-REACTIVE PROT Result Comment: C-Reactive Protein (CRP) provides useful information for the diagnosis, therapy and monitoring of inflammatory processes and associated diseases. For the evaluation of Relative Risk for Cardiovascular Disease, a High Sensitivity CRP (HSCRP) should be ordered. Performed By: #### L501.6710, L505.7010 #### [facility] [address] [place], [place], [address] RHEUMATOID FACTOR Collected: 10/02/2017 Status: F Source: [place] 4:37 PM [facility] REPOSITORY TYPE CODE TESTS RESULT OUT OF RANGE REFERENCE UNITS LAB L505.7010 <15 IU/mL Normal RHEUMATOID FAC < 10.0 Performed By: #### L501.6710, L505.7010 #### [facility] [address] [place], [place], [address] ERYTHROCYTE SED RATE Collected: 10/02/2017 Status: F Source: [place] 4:37 PM [facility] REPOSITORY TYPE CODE TESTS RESULT OUT OF RANGE REFERENCE UNITS LAB L102.0000 0-20 mm/hr Normal SED RATE 5 Performed By: #### L101.9900 #### [facility] [address] [place], [place], [address] ANTINUCLEAR ANTIBODIES Collected: 10/02/2017 Status: F Source: [place] DIRECT 4:37 PM [facility] REPOSITORY TYPE CODE TESTS RESULT OUT OF REFERENCE UNITS RANGE LAB L3100.5475 Negative High Positive RISHABH-DIRECT Result Comment: Performed at: - [facility] [id number] Sales And Business Development Manager: Naveen Lopes PhD, Phone: [phone] Performed By: #### L3100.5475 #### [facility] (refer to report for specific site) refer to report for address and phone number HLA B27 Collected: 10/02/2017 Status: F Source: [place] 4:37 PM [facility] REPOSITORY TYPE CODE TESTS RESULT OUT OF [...] Drug Administration. [facility] CLIA ID Number [id number] This test was performed using PCR (Polymerase Chain Reaction)/SSOP (Sequence Specific Oligonucleotide Probes) technique. SBT (Sequence Based Typing) and/or SSP (Sequence Specific Primers) may be used as supplemental methods when necessary. Please contact [facility] Customer Service at if you have any questions. Director of [facility] Laboratory Dr Sanchez Moctezuma, PhD Performed at: [address] [place] [id number] Sales And Business Development Manager: Sanchez Moctezuma PhD, Phone: [phone] Performed By: #### L3410.1400 #### [facility] (refer to report for specific site) refer to report for address and phone number OPERATIVE REPORT Observed: 09/29/2017 Status: F Source: [place] 8:15 AM [facility] REPOSITORY [facility] Medical Records Department [address] [place] [address] Operative Report 09/29/17 0739 MR#: [id number] Acct: [id number] Name: YOANDY ROSE Rep #: [id number] : 1975 42 From: Osmar Vee MD PCP: Gustabo Cummins DO Status: REG SDC Y Location: [place] [address] Operative Report Date of Procedure: 09/29/17 Surgeon: [...] and cervix was dilated to about 17 Faroese size. Hysteroscopic hydrothermal ablation (HTA) unit was [...] DISCHARGE INSTRUCTION Observed: 09/29/2017 Status: F Source: [place] 7:41 AM [facility] REPOSITORY [facility] Medical Records Department [address] [place] [address] Instructions for Home/Discharge Instructions 09/29/17 0741 MR#: [id number] Acct: [id number] Name: YOANDY ROSE Rep #: [id number] : 1975 42 From: Osmar Vee MD PCP: Gustabo Cummins DO Status: REG [facility] Discharge Diet: No Restrictions Discharge Activity: Return [...] 09/29/2017 Status: F Source: [place] 7:30 AM [facility] REPOSITORY Patient: YOANDY ROSE : 1975 (42/F) Acct Num: [id number] Phys: Osmar Vee MD Unit Num: [id number] Loc: [facility] Specimen: [id number] Received: 09/29/17 - 1005 Spec Type: ENDOM BX/C TISSUES TISSUES: Endometrium, NOS COMMENT Please make reference to previous specimen ([id number]) endometrium, biopsy with diagnosis of secretory endometrium. GROSS DESCRIPTION Received in fixative is one container labeled with the patient's name and designated endometrial curettings. The specimen consists of multiple fragments of hemorrhagic soft tissue mixed with mucoid tissue that in aggregate measure 4 x 3 x 0.2 cm. The entire specimen is submitted in two cassettes. / ADAM:yoav 09/29/17 TC:5 CPT: 78626 HEADER OPERATION: Hysteroscopy, dilation and curettage, hydrothermal ablation PRE-OP DIAGNOSIS: Menorrhagia TISSUE SUBMITTED: Endometrial curettings MICROSCOPIC DESCRIPTION Slides are reviewed. MICROSCOPIC DIAGNOSIS Endometrial curettings: Mildly disordered proliferative endometrium. ADAM:yoav 09/30/17 Signed Иван Flores 09/30/17 <signature on file> Performed By: #### PEMB #### [facility] [address] 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 Sibling(s): Multiple Births. Father: Heart Disease and VT. Maternal Grandmother: DM II. MENSTRUAL HISTORY: LMP [...] 124/62 Sitting, Right arm, regular cuff Weight- 158.18835 lbs Height- 65.00 inch BMI:26.35 CONSTITUTIONAL - [...] Status: F Source: [place] 09/25/2017 2:22 PM [facility] REPOSITORY TYPE CODE TESTS RESULT OUT OF REFERENCE UNITS RANGE LAB L700.7000 0-9 Nonpreg Negative Normal HCGSQUAL NEGATIVE LAB L700.6700 =>Qualitative mIU/mL Normal HCG Qual < 1 triggr Performed By: #### L700.6800 #### [facility] [address] [place], [place], [address] CBC-COMPLETE BLOOD CNT Collected: 09/25/2017 Status: F Source: [place] NO DIFF 2:22 PM [facility] REPOSITORY TYPE CODE TESTS RESULT OUT OF [...] MPV 11.2 Performed By: #### L100.0500 #### [facility] [address] [place], [place], [address] TYPE AND SCREEN Collected: 09/25/2017 Status: F Source: [place] 2:22 PM [facility] REPOSITORY Order Comment: Surgery Date: 09/23/17 Hx of Preganancy in last 3 Months No Ever experience any problems with transfusion(s)? N Hx of Transfusion in last 3 Months N Reason for Type AND Screen/Red Cells: SURGERY SURGICAL PROCEDURE: 35023 TYPE CODE TESTS RESULT OUT OF RANGE REFERENCE UNITS LAB B10.0800 B Normal BLOOD TYPE GEL POSITIVE LAB B100.4000 Normal Antibody NEGATIVE Screen Performed By: #### B101.7475 #### [facility] [address] [place], [place], [address] URGENT CARE VISIT Observed: 09/25/2017 Status: F Source: [place] REPORT 1:59 PM [facility] REPOSITORY [facility] [address] [place] [address] [address] [place], [place] [address] OFFICE VISIT Date of Service: 09/25/17 MR#: [id number] Acct: [id number] Name: YOANDY ROSE Rep #: [id number] : 1975 Provider: Candelario ENCINAS Age/Sex: 42/F Location: [facility] Status: Signed Intake Vital Signs09/25/17 Blood Pressure 120/76 09/25/17 Blood Pressure Location Lt brachial Intake Visit Reasons: PINKEYE Chief Complaint: Left eye pain Allergies No Known Allergies Allergy (Verified 09/22/17 14:01) Medications Dexlansoprazole [Dexilant] 60 mg PO LUNCH 09/22/17 [History Confirmed 09/22/17] [facility] Social History Smoking Status: Never smoker HPI [...] today called into the hospital pharmacy and [phone]. Appropriate eye hygiene is reinforced today with patient. Follow-up with PCP or ophthalmology in 2-3 days should symptoms not improve, sooner should symptoms worsen or any other concerns develop. Patient states acknowledging understanding all the above. This note was generated with [employer] ([employer] dictation software. It may contain incorrect words, spelling, and punctuation that were not noted in checking the note before signing. Coding Level of Care Code Off vis,est,level 4 Diagnoses Conjunctivitis H10.9 09/25/17 6426 <Electronically signed by Candelario ENCINAS> Date Candelario Kay Kitty Lassiter Signature: Date (if applicable) CC: ALLERGIES ALLERGIES DATE TYPE / CODE NAME / CODE REACTION SEVERITY SOURCE 09/22/2017 Drug No Known Unknown [facility] Allergy/4160 Allergies/F00 Hospital 84617(SNOMED 1117838(RXNOR Repository CT) M) ENCOUNTERS ENCOUNTERS ADMIT/DISCHARGE ACCOUNT ADMITTING ENCOUNTER LOCATION SOURCE NUMBER CLASS 08/28/2018 [id number] [facility] [place] [facility] Repository 08/21/2018 [id number] [facility] [place] [facility] ing:LAB.F[facility]UR Repository E 08/20/2018 [id number] [facility] [place] [facility] [facility]OPBI Repository 04/27/2018 [id number] [facility] [place] [facility] ing:MTLAB Repository 03/24/2018 [id number] [facility] [place] [facility] ing:PSN Repository 03/04/2018 [id number] [facility] [place] [facility] ing:MRI Repository 02/19/2018 [id number] [facility] [place] [facility] ing:MTLAB Repository 02/13/2018 [id number] [facility] [place] 9 [facility] ing:MTLAB Repository 02/03/2018 [id number] [facility]ulatory [place] [facility] ing:LAB.FUTUR Repository E 02/03/2018 [id number] Ambulatory [place] [facility] ing:EMPH Repository 01/22/2018 [id number] [facility] 4 [facility] ing:LAB.FUTUR Repository E 01/05/2018 [id number] [facility]ulatory [place] [facility] ing:MTLAB Repository 10/02/2017 [id number] Ambulatory [place] 2 [facility] ing:LAB.FUTUR Repository E 09/29/2017/ [id number] Ambulatory [place] 8 7 [facility] ing:SDCRoom: Repository AC01 09/25/2017/ [id number] Ambulatory BMSBuilding:B [place] 3 [facility] Repository PAYERS PAYERS ENCOUNTER GUARANTOR PAYER SUBSCRIBER SOURCE 08/28/2018 WILIAN [place] Primary Insurance:[facility] YOANDY Betancur [id number] [facility] [id number] Number: Repository [address]Tja: 330 [id number] [phone] (HP) Date:7529-02-50RC [address] [address], [place] [address]QE: CHECK WEBSITE 08/28/2018 Secondary NOT GIVENUNK [place] Insurance:SELF PAY [facility] Number: Effective Repository Date:2018-08-28 08/21/2018 WILIAN [place] Primary Insurance:[facility] YOANDY Betancur [id number] [facility]: [facility] [id number], [place] Number: Repository [address]Bkx: 330 [id number] [phone] (HP) Date:3943-89-27OO [address] [address]FKGDOXUHZ, [place] [address]TE: CHECK WEBSITE 08/21/2018 Secondary NOT GIVENUNK [place] Insurance:SELF PAY [facility] Number: Effective Repository Date:2018-08-17 08/20/2018 WILIAN [place] Primary Insurance:[facility] YOANDY Betancur [id number] [facility]: [facility] 8799-06-83[place]JD[place], [place] Number: Repository [address]Fra: 330 [id number] [phone] (HP) Date:2059-76-73HM [address] [address]YFZCZMMRC, [place] [address]EN: CHECK WEBSITE 08/20/2018 Secondary NOT GIVENUNK [place] Insurance:SELF PAY [facility] Number: Effective Repository Date:2018-08-10 04/27/2018 WILIAN [place] Primary Insurance:[facility] YOANDY Rivera [place] [id number] [facility]: [facility] [id number], [place] Number: Repository [address]Hyh: 330 [id number] [phone] () Date:0962-68-20YT [address] [address]WTJFXRTOB, [place] [address]YG: CHECK WEBSITE 04/27/2018 Secondary NOT GIVENUNK [place] Insurance:SELF PAY [facility] Number: Effective Repository Date:2018-04-27 03/24/2018 WILIAN [place] Primary Insurance:[facility] YOANDY Rivera [place]alt [id number] [facility]: [facility] [id number], [place] Number: Repository [address]Yts: 330 [id number] [phone] () Date:5442-88-58GC [address] [address]ULGNTVWNF, [place] [address]MA: CHECK WEBSITE 03/24/2018 Secondary NOT GIVENUNK [place] Insurance:SELF PAY [facility] Number: Effective Repository Date:2018-03-09 03/04/2018 WILIAN [place] Primary Insurance:[facility] YOANDY Betancur [id number] [facility] 3870-77-59EGYCoald[place], [place] Number: Repository [address]Bxi: 330 [id number] [phone] () Date:3223-31-79IU [address] [address]POVPZYMDA, [place] [address]AW: CHECK WEBSITE 03/04/2018 Secondary NOT GIVENUNK [place] Insurance:SELF PAY [facility] Number: Effective Repository Date:2018-02-18 02/19/2018 WILIAN [place] Primary Insurance:[facility] YOANDY Betancur [id number] [facility]: [facility] [id number], [place] Number: Repository [address]Orh: 330 [id number] [phone] (HP) Date:1786-68-37SP [address] [address]KVFRFQLDI, [place] [address]TV: CHECK WEBSITE 02/19/2018 Secondary NOT GIVENUNK [place] Insurance:SELF PAY [facility] Number: Effective Repository Date:2018-02-19 02/13/2018 Wilian Pleitez Primary Insurance:[facility] YOANDY [id number] [facility]: [facility] 3049-07-97[place]CMor[place] Number: Repository [address]Vyt: 330 [id number] [phone] (HP) Date:4570-50-75JD [address] [address]IKBRYGHDX, [place] [address]LM: CHECK WEBSITE 02/13/2018 Secondary NOT GIVENUNK [place] Insurance:SELF PAY [facility] Number: Effective Repository Date:2018-02-13 02/03/2018 Wilian Ple[place] Primary Insurance:[facility] YOANDY [id number] [facility]: [facility] 7519-84-00FWTMorris [place], [place] Number: Repository [address]Elu: 330 [id number] [phone] () Date:7082-75-00CU [address] [address]CCGRNOCXA, [place] [address]SQ: CHECK WEBSITE 02/03/2018 Secondary NOT GIVENUNK [place] Insurance:SELF PAY [facility] Number: Effective Repository Date:2018-01-23 02/03/2018 Wilian Pleitez Primary NOT GIVENUNK [place] [id number] Insurance:SELF PAY [place] Number: Effective Repository [address]Uvo: (330) Date:2018-02-03 [phone] (HP) 01/22/2018 Wilian Pleitez Primary Insurance:[facility] YOANDY [id number] [facility]: [facility] 9022-52-01SSGMorris Plains, [place] Number: Repository [address]Vru: 330 [id number] [phone] (HP) Date:9997-76-57BQ [address] [address]OVUIHSJFQ, [place] [address]LZ: CHECK WEBSITE 01/22/2018 Secondary NOT GIVENUNK [place] Insurance:SELF PAY [facility] Number: Effective Repository Date:2018-01-21 01/05/2018 Wilian Pleitez Primary Insurance:[facility] YOANDY Betancur [id number] [facility]: [facility] 5409-79-51YERMorris [place], [place] Number: Repository [address]Nme: 330 [id number] [phone] (HP) Date:4540-75-89BY [address] [address]WIJPZQPAA, [place] [address]WD: CHECK WEBSITE 01/05/2018 Secondary NOT GIVENUNK [place] Insurance:SELF PAY [facility] Number: Effective Repository Date:2018-01-05 10/02/2017 Wilian Pleitez Primary Insurance:[facility] YOANDY Rivera Galt [id number] [facility]: [facility] 7071-71-74RABMorris Plains, [place] Number: Repository [address]Zrl: 330 [id number] [phone] (HP) Date:9839-59-61IU [address] [address]IMDCPESNG, [place] [address]WN: CHECK WEBSITE 10/02/2017 Secondary NOT GIVENUNK [place] Insurance:SELF PAY [facility] Number: Effective Repository Date:2017-10-02 09/29/2017 Wilian Pleitez Primary Insurance:[facility] YOANDY Rivera Galt [id number] [facility]: [facility] 3277-24-39IICMorris [place], [place] Number: Repository [address]Qeh: 330 [id number] [phone] (HP) Date:7226-98-49RP [address] [address]UXXMUHHPI, [place] [address]VX: CHECK WEBSITE 09/29/2017 Secondary NOT GIVENUNK [place] Insurance:SELF PAY [facility] Number: Effective Repository Date:2017-08-29 09/25/2017 Wilian Pleitez Primary Insurance:[facility] YOANDY [place] [id number] [facility]LED[facility]: [facility] 4637-17-92EDOMorris Plains, [place] Number: Repository [address]Ifg: (454) [id number] [phone] () Date:5062-63-71TB [address] [address]QWEPGMDVX, [place] [address]CE: CHECK WEBSITE 09/25/2017 Secondary NOT GIVENUNK [place] Insurance:SELF PAY [facility] Number: Effective Repository Date:2017-09-25
== END ==
PROVIDERS: Family Provider Family Medicine; PCP Family Medicine; Referring Provider Family Medicine; Visit Provider Family Medicine
DX: E55.9 Vitamin D deficiency, unspecified (principal)
CPT/HCPCS: 36415; 82306

== ENCOUNTER → 2018-08-28 07:17 | Outpatient (CLI) | payer OTHER, SELFPAY ==
[2018-08-28 10:14] LABS: Absolute Lymphocyte Count 1.45 X10^3/ul (0.83-4.51); Absolute Neutrophil Count 2.9 X10^3/uL (2.0-7.7); Basophil# 0.02 X10^3/uL; Basophil% 0.4 % (0-1); Eosinophil# 0.08 X10^3/uL; Eosinophils% 1.7 % (0-5); Hematocrit 41.1 % (37-47); Hemoglobin 13.7 g/dl (12.0-15.0); Lymphocyte # 1.45 X10^3/ul (4.0); Lymphocyte % 30.1 % (19-41); Mean Corp Hgb Conc 33.3 g/gl (32-36); Mean Corpuscular Hgb 30.9 pg (27.0-32.0); Mean Corpuscular Volume 92.8 fL (81-99); Mean Platelet Vol. 11.3 fl (6.2-12.0); Monocyte# 0.35 X10^3/uL; Monocyte% 7.3 % (0-10); Neutrophil # 2.91 X10^3/uL (2.7-7.7); Neutrophil % 60.5 % (47-70); Platelet Count 174 K/mm3 (150-450); RBC Distribution Width CV 12.2 % (11.6-14.6); RBC Distribution Width SD 41.3 fl (35.1-43.9); Red Blood Count 4.43 M/mm3 (4.2-5.4); White Blood Count 4.8 K/mm3 (4.4-11.0)
[2018-08-28 10:15] LABS: POSITIVE COUNT NO; POSITIVE DIFFERENTIAL NO; POSITIVE MORPHOLOGY NO
[2018-08-28 10:17] LABS: Color, Urine Yellow (Yellow); Glucose, Dipstick Normal (Normal); Ketone-Dipstick Negative (Negative); Leukocyte Esterase-Dipstick 25 /ul (Negative); Nitrite-Dipstick Negative (Negative); Occult Blood-Urine Negative /ul (Negative); Protein-Dipstick Negative (Negative); Urine Bilirubin Dipstick Negative (Negative); Urine Clarity Sl. Cloudy (Clear); Urine Urobilinogen Normal (Normal)
[2018-08-28 10:27] LABS: Protein, Urine (Random) 26.5 mg/dL (<11.9); Protein:Creat Ratio 112 mg/g CRE (0-200)
[2018-08-28 10:36] LABS: AST(SGOT) 10 U/L (15-37); Alanine Aminotransfer ALT/SGPT 19 U/L (13-56); Albumin, Serum 3.7 g/dL (3.2-5.0); Alkaline Phosphatase 43 U/L (45-117); Anion Gap 8 (5-15); BUN 13 mg/dL (7-18); BUN/Creat Ratio 14.2 RATIO (10-20); Calcium,Total 8.4 mg/dL (8.5-10.1); Chloride 108 mmol/L (98-107); Creatinine, Serum 0.92 mg/dL (0.55-1.02); EST Glomerular Filtration Rate 71 mL/min (>60); Est Glom Filt Rate - Afr Amer 86 mL/min (>60); Globulin 3.6 g/dL (2.2-4.2); Glucose 77 mg/dL (74-106); Potassium 3.7 mmol/L (3.5-5.1); Protein, Total 7.3 g/dL (6.4-8.2); Sodium Level 142 mmol/L (136-145)
[2018-08-31 09:12] LABS: Complement C3 118 mg/dL (82-167)
[2018-09-01 12:52] LABS: Anti-dsDNA Ab 3 IU/mL (0-9)
== END ==
PROVIDERS: Family Provider Family Medicine; PCP Family Medicine; Referring Provider Internal Medicine Rheumatology; Visit Provider Internal Medicine Rheumatology
DX: M06.4 Inflammatory polyarthropathy (principal); M35.1 Other overlap syndromes; K21.9 Gastro-esophageal reflux disease without esophagitis; Q66.7 Congenital pes cavus; H20.12 Chronic iridocyclitis, left eye
CPT/HCPCS: 36415; 80053; 81002; 82570; 84156; 85025; 86160; 86225

== ENCOUNTER → 2018-09-04 13:16 | Outpatient (CLI) | payer OTHER, SELFPAY ==
[2018-09-08 08:54] LABS: HPV Reflexed? NOT INDICATED
== END ==
PROVIDERS: Visit Provider Obstetrics & Gynecology
DX: Z12.4 Encounter for screening for malignant neoplasm of cervix (principal)
CPT/HCPCS: 87624; 88175; G0145

== ENCOUNTER → 2018-10-23 06:56 | Outpatient (CLI) | payer OTHER, SELFPAY ==
--- NOTE | 2018-10-23 07:19 | MRI_ITS ---
STUDY: MRA OF THE HEAD WITHOUT CONTRAST REASON FOR EXAM: Female, 43 years old. Left facial burning sensation TECHNIQUE: 3-D oaln-jl-kiymeh (TOF) imaging was performed with MIPs. The study was performed unenhanced. COMPARISON: Brain MRI 03/04/2018. 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 Normal bilateral petrous carotid arteries. Otherwise normal right cavernous carotid artery with a normal supraclinoid bifurcation. Normal left cavernous carotid artery with a normal supraclinoid bifurcation. Normal right A1 segments of the anterior cerebral artery. Normal left A1 segments of the anterior cerebral artery. Normal intact anterior communicating artery (ACOM). Normal bilateral A2 segments of the anterior cerebral arteries. Normal right M1 and M2 segments of the middle cerebral arteries, with a normal M1 bifurcation. Normal left M1 and M2 segments of the middle cerebral arteries, with a normal M1 bifurcation. Normal right posterior communicating artery (PCOM). Normal left posterior communicating artery (PCOM). Normal bilateral vertebral arteries. Normal basilar artery with a normal basilar bifurcation. The visualized bilateral superior cerebellar (SCA) arteries are normal. Normal bilateral P1, P2 and visualized P3 segments of the posterior cerebral arteries. There is no major vessel occlusion or hemodynamically significant stenosis. There is no demonstrated abnormality of the visualized brain. There is a left maxillary sinus retention cyst. 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 No major vessel occlusion or significant stenosis. N.B. : The above information has been verbally conveyed by Shelly Olivier to GAIL Tobar RN, on 10/23/2018 09:33:34 (ET). Electronically Signed: Shelly Olivier, at 9:22 EDT Tel , Service support ,
== END ==
PROVIDERS: Family Provider Family Medicine; PCP Family Medicine; Referring Provider Psychiatry & Neurology Neurology; Visit Provider Psychiatry & Neurology Neurology
DX: G50.8 Other disorders of trigeminal nerve (principal); R20.8 Other disturbances of skin sensation
CPT/HCPCS: 70544

== ENCOUNTER → 2018-11-06 16:41 | Outpatient (CLI) | payer OTHER, SELFPAY ==
--- NOTE | 2018-11-06 16:42 | CT_ITS ---
HISTORY: N/T LEFT SIDE OF FACE ANEURYSM SHOWED ON MRI EXAMINATION: CTA Head WO/W Contrast TECHNIQUE: Routine elim [facility] [place]/brain CT angiogram protocol was performed following IV contrast. 3D reconstructions were reviewed. A radiation dose optimization technique was used for this scan. IV Contrast dosage and agent: 100CC Isovue 370 COMPARISON: MRA brain 10/23/2018 and MRI brain 03/04/2018 FINDINGS: CTA exam was correlated with recent MRI exam. 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 The tiny aneurysm (axial image # 183 )shows a relatively well-defined neck and the aneurysm begins immediately distal to the cavernous segment bordering the posterior wall of the sphenoid and the anterior right parasellar region. Normal contrast filling of the anterior, middle, and posterior cerebral arteries bilaterally. No stenosis or additional aneurysm seen. The posterior cerebral arteries fill via the basilar artery. No circulation. No vascular malformation seen. IMPRESSION: 1. 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 Details above. No additional significant findings. Individualized dose optimization techniques were used for this CT. at 0720 Reported and signed by: Jose Guadalupe Root MD Electronically Signed: Jose Guadalupe Root, at 7:19 EDT Tel , Service support , HISTORY: N/T LEFT SIDE OF FACEANEURYSM SHOWED ON MRI EXAMINATION: CTA Neck WO/W Contrast TECHNIQUE: Routine carotid CT angiogram protocol was performed without and with IV contrast. Nascet criteria using the distal ICAs for comparison were used for evaluation of stenoses. 3D reconstructions were reviewed. A radiation dose optimization technique was used for this scan. IV Contrast dosage and agent: 100CC Isovue 370 COMPARISON: None FINDINGS: AORTIC ARCH AND BRANCHES: Normal anatomy, patent. RIGHT CCA: No occlusion, significant stenosis or dissection. RIGHT ICA: No occlusion, significant stenosis or dissection. LEFT CCA: No occlusion, significant stenosis or dissection. LEFT ICA: No occlusion, significant stenosis or dissection. RIGHT VERTEBRAL ARTERY: No occlusion, significant stenosis or dissection. LEFT VERTEBRAL ARTERY: No occlusion, significant stenosis or dissection. CT/CTA Neck W/WO Contrast IMPRESSION: 1. Normal CTA of the cervical carotids. No plaque disease, stenosis, or arterial dissection. 2. Normal patency of the right and left vertebral arteries which are codominant. Individualized dose optimization techniques were used for this CT. at 0723 Reported and signed by: Jose Guadalupe Root MD Electronically Signed: Jose Guadalupe Root, at 7:22 EDT Tel , Service support ,
--- NOTE | 2018-11-06 16:43 | CT_ITS ---
HISTORY: N/T LEFT SIDE OF FACE ANEURYSM SHOWED ON MRI EXAMINATION: CTA Head WO/W Contrast TECHNIQUE: Routine [place] [facility] [place]/brain CT angiogram protocol was performed following IV contrast. 3D reconstructions were reviewed. A radiation dose optimization technique was used for this scan. IV Contrast dosage and agent: 100CC Isovue 370 COMPARISON: MRA brain 10/23/2018 and MRI brain 03/04/2018 FINDINGS: CTA exam was correlated with recent MRI exam. 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 The tiny aneurysm (axial image # 183 )shows a relatively well-defined neck and the aneurysm begins immediately distal to the cavernous segment bordering the posterior wall of the sphenoid and the anterior right parasellar region. Normal contrast filling of the anterior, middle, and posterior cerebral arteries bilaterally. No stenosis or additional aneurysm seen. The posterior cerebral arteries fill via the basilar artery. No circulation. No vascular malformation seen. IMPRESSION: 1. 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 Details above. No additional significant findings. Individualized dose optimization techniques were used for this CT. at 0720 Reported and signed by: Jose Guadalupe Root MD Electronically Signed: Jose Guadalupe Root, at 7:19 EDT Tel , Service support , HISTORY: N/T LEFT SIDE OF FACEANEURYSM SHOWED ON MRI EXAMINATION: CTA Neck WO/W Contrast TECHNIQUE: Routine carotid CT angiogram protocol was performed without and with IV contrast. Nascet criteria using the distal ICAs for comparison were used for evaluation of stenoses. 3D reconstructions were reviewed. A radiation dose optimization technique was used for this scan. IV Contrast dosage and agent: 100CC Isovue 370 COMPARISON: None FINDINGS: AORTIC ARCH AND BRANCHES: Normal anatomy, patent. RIGHT CCA: No occlusion, significant stenosis or dissection. RIGHT ICA: No occlusion, significant stenosis or dissection. LEFT CCA: No occlusion, significant stenosis or dissection. LEFT ICA: No occlusion, significant stenosis or dissection. RIGHT VERTEBRAL ARTERY: No occlusion, significant stenosis or dissection. LEFT VERTEBRAL ARTERY: No occlusion, significant stenosis or dissection. CT/CTA Head W/WO Contrast IMPRESSION: 1. Normal CTA of the cervical carotids. No plaque disease, stenosis, or arterial dissection. 2. Normal patency of the right and left vertebral arteries which are codominant. Individualized dose optimization techniques were used for this CT. at 6323 Reported and signed by: Jose Guadalupe Root MD Electronically Signed: Jose Guadalupe Root, at 7:22 EDT Tel , Service support ,
== END ==
PROVIDERS: Family Provider Family Medicine; PCP Family Medicine; Referring Provider Pediatrics Pediatric Cardiology; Visit Provider Radiology Diagnostic Radiology
DX: I67.1 Cerebral aneurysm, nonruptured (principal)
CPT/HCPCS: 70496; 70498; Q9967

== ENCOUNTER → 2019-03-01 07:33 | Outpatient (CLI) | payer OTHER, SELFPAY ==
[2019-03-01 10:45] LABS: Absolute Lymphocyte Count 1.84 X10^3/uL (0.83-4.51); Absolute Neutrophil Count 3.2 X10^3/uL (2.0-7.7); Basophil# 0.03 X10^3/uL; Basophil% 0.5 % (0-1); Eosinophil# 0.14 X10^3/uL; Eosinophils% 2.5 % (0-5); Hematocrit 40.8 % (37-47); Lymphocyte # 1.84 X10^3/ul (4.0); Lymphocyte % 32.4 % (19-41); Mean Corp Hgb Conc 34.3 g/dL (32-36); Mean Corpuscular Hgb 32.2 pg (27.0-32.0); Mean Corpuscular Volume 93.8 fL (81-99); Mean Platelet Vol. 11.6 fl (6.2-12.0); Monocyte# 0.43 X10^3/uL; Monocyte% 7.6 % (0-10); NRBC Flagged by Analyzer 0 % (0-5); Neutrophil # 3.22 X10^3/uL (2.7-7.7); Neutrophil % 56.6 % (47-70); Platelet Count 172 K/mm3 (150-450); RBC Distribution Width CV 11.8 % (11.6-14.6); RBC Distribution Width SD 40.6 fl (35.1-43.9); Red Blood Count 4.35 M/mm3 (4.2-5.4); White Blood Count 5.7 K/mm3 (4.4-11.0)
[2019-03-01 10:53] LABS: Protein, Urine (Random) 27.5 mg/dL (<11.9); Protein:Creat Ratio 104 mg/g CRE (0-200)
[2019-03-01 11:19] LABS: Color, Urine Yellow (Yellow); Glucose, Dipstick Normal (Normal); Ketone-Dipstick 5 mg/dl (Negative); Leukocyte Esterase-Dipstick 25 /ul (Negative); Nitrite-Dipstick Negative (Negative); Occult Blood-Urine Negative /ul (Negative); Protein-Dipstick 30 mg/dl (Negative); Specific Gravity, Urine 1.025 (1.002-1.030); Urine Bilirubin Dipstick Negative (Negative); Urine Clarity Sl. Cloudy (Clear); Urine Urobilinogen Normal (Normal)
[2019-03-01 11:23] LABS: ALB/GLOB Ratio 1.2 RATIO (0.9-2.4); AST(SGOT) 10 U/L (15-37); Alanine Aminotransfer ALT/SGPT 19 U/L (13-56); Albumin, Serum 3.8 g/dL (3.2-5.0); Alkaline Phosphatase 46 U/L (45-117); Anion Gap 5 (5-15); BUN 14 mg/dL (7-18); BUN/Creat Ratio 15.8 RATIO (10-20); Calcium,Total 8.6 mg/dL (8.5-10.1); Chloride 108 mmol/L (98-107); Creatinine, Serum 0.89 mg/dL (0.55-1.02); EST Glomerular Filtration Rate 74 mL/min (>60); Est Glom Filt Rate - Afr Amer 89 mL/min (>60); Globulin 3.2 g/dL (2.2-4.2); Glucose 84 mg/dL (74-106); Potassium 3.9 mmol/L (3.5-5.1); Sodium Level 140 mmol/L (136-145)
[2019-03-02 11:26] LABS: Complement C3 96 mg/dL (82-167)
[2019-03-02 14:59] LABS: Anti-dsDNA Ab 3 IU/mL (0-9)
== END ==
PROVIDERS: Family Provider Family Medicine; PCP Family Medicine; Referring Provider Internal Medicine Rheumatology; Visit Provider Internal Medicine Rheumatology
DX: M06.4 Inflammatory polyarthropathy (principal); M35.1 Other overlap syndromes; K21.9 Gastro-esophageal reflux disease without esophagitis; Q66.7 Congenital pes cavus; H20.12 Chronic iridocyclitis, left eye
CPT/HCPCS: 36415; 80053; 81002; 82570; 84156; 85025; 86160; 86225

== ENCOUNTER → 2019-06-08 11:42 | Outpatient (CLI) | payer OTHER, SELFPAY ==
[2019-06-08 18:03] LABS: Absolute Lymphocyte Count 1.76 X10^3/uL (0.83-4.51); Absolute Neutrophil Count 3.1 X10^3/uL (2.0-7.7); Basophil# 0.03 X10^3/uL; Basophil% 0.5 % (0-1); Eosinophil# 0.15 X10^3/uL; Eosinophils% 2.7 % (0-5); Hematocrit 40.6 % (37-47); Hemoglobin 13.6 g/dL (12.0-15.0); Lymphocyte # 1.76 X10^3/ul (4.0); Lymphocyte % 32.1 % (19-41); Mean Corp Hgb Conc 33.5 g/dL (32-36); Mean Corpuscular Hgb 31.1 pg (27.0-32.0); Mean Corpuscular Volume 92.7 fL (81-99); Mean Platelet Vol. 10.9 fl (6.2-12.0); Monocyte# 0.43 X10^3/uL; Monocyte% 7.8 % (0-10); NRBC Flagged by Analyzer 0 % (0-5); Neutrophil % 56.7 % (47-70); Platelet Count 187 K/mm3 (150-450); RBC Distribution Width CV 11.9 % (11.6-14.6); RBC Distribution Width SD 39.7 fl (35.1-43.9); Red Blood Count 4.38 M/mm3 (4.2-5.4); White Blood Count 5.5 K/mm3 (4.4-11.0)
[2019-06-08 18:07] LABS: Color, Urine Yellow (Yellow); Glucose, Dipstick Normal (Normal); Ketone-Dipstick Negative (Negative); Leukocyte Esterase-Dipstick Negative /ul (Negative); Nitrite-Dipstick Negative (Negative); Occult Blood-Urine Negative /ul (Negative); Protein-Dipstick Negative (Negative); Urine Bilirubin Dipstick Negative (Negative); Urine Clarity Clear (Clear); Urine Urobilinogen Normal (Normal)
[2019-06-08 18:16] LABS: Erythrocyte Sedimentation Rate 8 mm/hr (0-20)
[2019-06-08 18:23] LABS: Vitamin D,25 Hydroxy 34.4 ng/mL (29.95-100.01)
[2019-06-08 18:28] LABS: ALB/GLOB Ratio 1.1 RATIO (0.9-2.4); AST(SGOT) 17 U/L (15-37); Alanine Aminotransfer ALT/SGPT 22 U/L (13-56); Alkaline Phosphatase 47 U/L (45-117); Anion Gap 7 (5-15); BUN 11 mg/dL (7-18); BUN/Creat Ratio 12.5 RATIO (10-20); CPK Total, Creatine Kinase 149 U/L (26-192); CRP < 2.90 mg/L (0.0-3.0); Calcium,Total 8.6 mg/dL (8.5-10.1); Chloride 104 mmol/L (98-107); Creatinine, Serum 0.88 mg/dL (0.55-1.02); EST Glomerular Filtration Rate 74 mL/min (>60); Est Glom Filt Rate - Afr Amer 89 mL/min (>60); Globulin 3.6 g/dL (2.2-4.2); Glucose 78 mg/dL (74-106); Potassium 3.4 mmol/L (3.5-5.1); Protein, Total 7.6 g/dL (6.4-8.2); Sodium Level 139 mmol/L (136-145); Thyroid Stim Hormone (TSH) 1.38 uIU/mL (0.358-3.74)
[2019-06-10 14:08] LABS: RNP Ab 1.3 AI (0.0-0.9)
[2019-06-11 16:30] LABS: Smith Ab <0.2 AI (0.0-0.9)
== END ==
PROVIDERS: Family Provider Family Medicine; PCP Family Medicine; Referring Provider Internal Medicine Rheumatology; Visit Provider Internal Medicine Rheumatology
DX: R89.9 Unspecified abnormal finding in specimens from other organs, systems and tissues (principal)
CPT/HCPCS: 36415; 80053; 81002; 82306; 82550; 84443; 85025; 85652; 86140; 86235

== ENCOUNTER → 2019-09-10 07:00 | Outpatient (CLI) | payer OTHER, SELFPAY ==
--- NOTE | 2019-09-10 07:05 | BI_ITS ---
MAMMOGRAPHY - BILATERAL SCREENING 3-D TOMOSYNTHESIS REASON FOR EXAM: Female, 44 years old. Routine screening PERTINENT HISTORY: Grandmother and aunt with breast cancer. TECHNIQUE: 2-D mammograms and 3-D Tomosynthesis of the breast (s) were performed. CAD was performed. COMPARISON: None. FINDINGS: The breast composition is composed of scattered fibroglandular density. Scattered benign calcifications are seen. No dense spiculated masses or suspicious microcalcifications are identified. No architectural distortion is identified. There is no skin thickening or retraction. There has been no significant change since the prior study. BI/SCREEN MAMM (CAD) W/MARIS BILAT IMPRESSION: No mammographic signs of malignancy. Routine yearly mammograms recommended. ASSESSMENT CATEGORY: BIRADS Category 2: Benign. A letter regarding these results will be sent to the patient by the facility within 30 days. FOLLOW UP RECOMMENDATION: Yearly follow up mammogram recommended. (A) Approximately 10% of breast cancers are not detected by mammography. A normal mammogram should not delay biopsy of a clinically suspicious abnormality. Electronically Signed: Jerald Negro MD at 9:00 EST , Service support ,
== END ==
PROVIDERS: PCP Family Medicine; Referring Provider Obstetrics & Gynecology; Visit Provider Obstetrics & Gynecology
DX: Z12.31 Encounter for screening mammogram for malignant neoplasm of breast (principal)
CPT/HCPCS: 77063; 77067

== ENCOUNTER → 2019-09-23 12:10 | Outpatient (CLI) | payer OTHER, SELFPAY ==
[2019-09-23 14:23] LABS: Protein, Urine (Random) < 6.0 mg/dL (<11.9)
[2019-09-23 14:28] LABS: Absolute Lymphocyte Count 1.91 X10^3/uL (0.83-4.51); Absolute Neutrophil Count 5.3 X10^3/uL (2.0-7.7); Basophil# 0.04 X10^3/uL; Basophil% 0.5 % (0-1); Eosinophil# 0.11 X10^3/uL; Eosinophils% 1.4 % (0-5); Hematocrit 39.1 % (37-47); Hemoglobin 13.2 g/dL (12.0-15.0); Lymphocyte # 1.91 X10^3/ul (4.0); Lymphocyte % 24.5 % (19-41); Mean Corp Hgb Conc 33.8 g/dL (32-36); Mean Corpuscular Volume 91.8 fL (81-99); Mean Platelet Vol. 11.2 fl (6.2-12.0); Monocyte% 5.1 % (0-10); NRBC Flagged by Analyzer 0 % (0-5); Neutrophil # 5.32 X10^3/uL (2.7-7.7); Neutrophil % 68.2 % (47-70); Platelet Count 175 K/mm3 (150-450); RBC Distribution Width CV 11.8 % (11.6-14.6); RBC Distribution Width SD 39.3 fl (35.1-43.9); Red Blood Count 4.26 M/mm3 (4.2-5.4); White Blood Count 7.8 K/mm3 (4.4-11.0)
[2019-09-23 14:38] LABS: ALB/GLOB Ratio 1.1 RATIO (0.9-2.4); AST(SGOT) 12 U/L (15-37); Alanine Aminotransfer ALT/SGPT 25 U/L (13-56); Albumin, Serum 3.9 g/dL (3.2-5.0); Alkaline Phosphatase 44 U/L (45-117); Anion Gap 7 (5-15); BUN 11 mg/dL (7-18); BUN/Creat Ratio 12.9 RATIO (10-20); Calcium,Total 8.8 mg/dL (8.5-10.1); Chloride 105 mmol/L (98-107); Creatinine, Serum 0.85 mg/dL (0.55-1.02); EST Glomerular Filtration Rate 77 mL/min (>60); Est Glom Filt Rate - Afr Amer 93 mL/min (>60); Globulin 3.4 g/dL (2.2-4.2); Glucose 89 mg/dL (74-106); Potassium 3.4 mmol/L (3.5-5.1); Protein, Total 7.3 g/dL (6.4-8.2); Sodium Level 138 mmol/L (136-145)
[2019-09-23 14:50] LABS: Color, Urine Yellow (Yellow); Glucose, Dipstick Normal (Normal); Ketone-Dipstick Negative (Negative); Leukocyte Esterase-Dipstick Negative /ul (Negative); Nitrite-Dipstick Negative (Negative); Occult Blood-Urine Negative /ul (Negative); Protein-Dipstick Negative (Negative); Urine Bilirubin Dipstick Negative (Negative); Urine Clarity Sl. Cloudy (Clear); Urine Urobilinogen Normal (Normal); Urine pH 6.5 (5.0 - 8.0)
== END ==
PROVIDERS: PCP Family Medicine; Referring Provider Internal Medicine Rheumatology; Visit Provider Internal Medicine Rheumatology
DX: M06.4 Inflammatory polyarthropathy (principal); M35.1 Other overlap syndromes; K21.9 Gastro-esophageal reflux disease without esophagitis; H20.12 Chronic iridocyclitis, left eye
CPT/HCPCS: 36415; 80053; 81002; 82570; 84156; 85025

== ENCOUNTER → 2019-10-15 12:31 | Outpatient (CLI) | payer OTHER, SELFPAY ==
--- NOTE | 2019-10-15 12:39 | MRI_ITS ---
STUDY: MRA OF THE HEAD WITHOUT CONTRAST REASON FOR EXAM: Female, 44 years old. R CAROTID CAVE ANEURYSM -- recheck, no symptoms TECHNIQUE: 3-D ixga-uw-mgukua (TOF) imaging was performed with MIPs. The study was performed unenhanced. COMPARISON: MRA of the brain dated October 23, 2018. CTA of the brain dated November 06, 2018. FINDINGS: Stable 2.2 mm fusiform aneurysm of the medial aspect of the right cavernous portion of the internal carotid artery/junction with the ophthalmic artery. This is poorly visualized on the axial images of the MRA Head w/o contrast, however, on the maximum intensity projection it is well visualized on image 10/14 series 202. Normal bilateral petrous carotid arteries. Normal remaining aspects right cavernous carotid artery with a normal supraclinoid bifurcation. Normal left cavernous carotid artery with a normal supraclinoid bifurcation. Normal right A1 segments of the anterior cerebral artery. Normal left A1 segments of the anterior cerebral artery. Normal intact anterior communicating artery (ACOM). Normal bilateral A2 segments of the anterior cerebral arteries. Normal right M1 and M2 segments of the middle cerebral arteries, with a normal M1 bifurcation. Normal left M1 and M2 segments of the middle cerebral arteries, with a normal M1 bifurcation. Normal right posterior communicating artery (PCOM). Normal left posterior communicating artery (PCOM). Normal bilateral vertebral arteries. Normal basilar artery with a normal basilar bifurcation. The visualized bilateral superior cerebellar (SCA) arteries are normal. Normal bilateral P1, P2 and visualized P3 segments of the posterior cerebral arteries. There is no major vessel occlusion or hemodynamically significant stenosis. MRI/MRA Head ONLY without Contrast IMPRESSION: 1. 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 This is poorly visualized on the axial images of the MRA Head w/o contrast, however, on the maximum intensity projection it is well visualized on image 10/14 series 202. Electronically Signed: Farhan Soto MD at 14:28 EDT , Service support ,
== END ==
PROVIDERS: PCP Family Medicine
DX: I72.5 Aneurysm of other precerebral arteries (principal)
CPT/HCPCS: 70544

== ENCOUNTER → 2020-05-30 12:04 | Outpatient (CLI) | payer OTHER, SELFPAY ==
[2020-05-30 12:17] LABS: Bacteria 0 SEEN /hpf (None Seen); Mucous, Urine 0 SEEN /hpf (<or=2+); Red Blood Cells-Urine 0 SEEN /hpf (0-5); Squamous Epithelial Cells - UA 0 SEEN /hpf (5-10); White Blood Cells 0 SEEN /hpf (0-5)
[2020-05-30 15:03] LABS: Color, Urine Yellow (Yellow); Glucose, Dipstick Normal (Normal); Ketone-Dipstick Negative (Negative); Leukocyte Esterase-Dipstick Negative /ul (Negative); Nitrite-Dipstick Negative (Negative); Occult Blood-Urine 10 /ul (Negative); Protein-Dipstick Negative (Negative); Specific Gravity, Urine 1.005 (1.002-1.030); Urine Bilirubin Dipstick Negative (Negative); Urine Clarity Clear (Clear); Urine Urobilinogen Normal (Normal)
[2020-05-30 15:06] LABS: Absolute Lymphocyte Count 1.68 X10^3/uL (0.83-4.51); Absolute Neutrophil Count 2.7 X10^3/uL (2.0-7.7); Basophil# 0.02 X10^3/uL; Basophil% 0.4 % (0-1); Eosinophils% 2.1 % (0-5); Hematocrit 40.8 % (37-47); Hemoglobin 13.7 g/dL (12.0-15.0); Lymphocyte # 1.68 X10^3/ul (4.0); Lymphocyte % 34.6 % (19-41); Mean Corp Hgb Conc 33.6 g/dL (32-36); Mean Corpuscular Hgb 30.8 pg (27.0-32.0); Mean Corpuscular Volume 91.7 fL (81-99); Mean Platelet Vol. 11.1 fl (6.2-12.0); Monocyte# 0.31 X10^3/uL; Monocyte% 6.4 % (0-10); NRBC Flagged by Analyzer 0 % (0-5); Neutrophil # 2.74 X10^3/uL (2.7-7.7); Neutrophil % 56.3 % (47-70); Platelet Count 193 K/mm3 (150-450); RBC Distribution Width CV 11.9 % (11.6-14.6); RBC Distribution Width SD 39.2 fl (35.1-43.9); Red Blood Count 4.45 M/mm3 (4.2-5.4); White Blood Count 4.9 K/mm3 (4.4-11.0)
[2020-05-30 15:22] LABS: Vitamin D,25 Hydroxy 68.8 ng/mL
[2020-05-30 15:26] LABS: Erythrocyte Sedimentation Rate 12 mm/hr (0-20)
[2020-05-30 15:48] LABS: ALB/GLOB Ratio 1.1 RATIO (0.9-2.4); AST(SGOT) 11 U/L (15-37); Alanine Aminotransfer ALT/SGPT 22 U/L (13-56); Albumin, Serum 3.9 g/dL (3.2-5.0); Alkaline Phosphatase 53 U/L (45-117); Anion Gap 6 (5-15); BUN 9 mg/dL (7-18); BUN/Creat Ratio 10.1 RATIO (10-20); CPK Total, Creatine Kinase 98 U/L (26-192); CRP < 2.90 mg/L (0.0-3.0); Calcium,Total 8.8 mg/dL (8.5-10.1); Chloride 104 mmol/L (98-107); Creatinine, Serum 0.89 mg/dL (0.55-1.02); EST Glomerular Filtration Rate 73 mL/min (>60); Est Glom Filt Rate - Afr Amer 88 mL/min (>60); Globulin 3.7 g/dL (2.2-4.2); Glucose 76 mg/dL (74-106); Potassium 3.5 mmol/L (3.5-5.1); Protein, Total 7.6 g/dL (6.4-8.2); Sodium Level 137 mmol/L (136-145)
[2020-06-02 16:08] LABS: RNP Ab 1.8 AI (0.0-0.9); Smith Ab <0.2 AI (0.0-0.9)
[2020-06-02 16:26] LABS: Anti-Nuclear Antibody Test Negative (.)
== END ==
PROVIDERS: PCP Family Medicine; Referring Provider Internal Medicine Rheumatology; Visit Provider Internal Medicine Rheumatology
DX: R89.9 Unspecified abnormal finding in specimens from other organs, systems and tissues (principal)
CPT/HCPCS: 36415; 80053; 81001; 82306; 82550; 84443; 85025; 85652; 86038; 86140; 86235

== ENCOUNTER 2020-06-01 18:02 | Outpatient (RCR) | payer OTHER, SELFPAY | END 2020-06-03 23:59 | LOC: EMPH 18:02 | PROVIDERS: PCP Family Medicine; Visit Provider Family Medicine Geriatric Medicine | DX: Z03.818 Encounter for observation for suspected exposure to other biological agents ruled out (principal) | CPT/HCPCS: 87426 ==

== ENCOUNTER → 2020-06-23 13:59 | Outpatient (CLI) | payer OTHER, SELFPAY ==
--- NOTE | 2020-06-23 15:00 | RAD_ITS ---
STUDY: X-RAY - THORACIC SPINE REASON FOR EXAM: Female, 45 years old. pt has had increase and ongoing pain in ribs, mostly right side, tightening, squeezing feeling at night -- back pain TECHNIQUE: 3 view(s) of the thoracic spine were obtained. COMPARISON: None. FINDINGS: Normal kyphosis of the thoracic spine. There is no substantial scoliosis. Normal thoracic vertebrae and endplates. Normal disc space heights. The soft tissue structures are unremarkable. RAD/Thoracic Spine 3 Views IMPRESSION: Normal x-ray examination of the thoracic spine. Electronically Signed: Andrew Ring MD at 15:36 EST Tel , Service support ,
--- NOTE | 2020-06-23 15:00 | RAD_ITS ---
STUDY: X-RAY - UNILATERAL RIBS ( RIGHT ) WITH CHEST REASON FOR EXAM: Female, 45 years old. pt has had increase and ongoing pain in ribs, mostly right side, tightening, squeezing feeling at night -- back pain TECHNIQUE - RIBS: 4 view(s) of the ribs. TECHNIQUE - CHEST: Single PA view of the chest. COMPARISON: None. FINDINGS - RIBS: Normal visualized ribs without a demonstrated fracture. FINDINGS - CHEST: The lungs are clear and expanded. There is no demonstrated pleural abnormality. Normal size heart. Normal mediastinum and dennis. Normal visualized pulmonary arteries. Normal visualized aortic arch and descending thoracic aorta. Normal visualized thoracic spine. Normal visualized ribs, clavicles, and shoulders. There is no demonstrated abnormality of the visualized soft tissue structures of the upper abdomen. RAD/Ribs Uni Min 3V w/PA Chest IMPRESSION: RIBS: Normal x-ray examination of the ribs. CHEST: Normal x-ray examination of the chest. Electronically Signed: Andrew Ring MD at 15:38 EST Tel , Service support ,
== END ==
PROVIDERS: PCP Family Medicine; Referring Provider Family Medicine; Visit Provider Family Medicine
DX: M54.9 Dorsalgia, unspecified (principal); R07.81 Pleurodynia
CPT/HCPCS: 71101; 72072

== ENCOUNTER → 2020-09-18 08:44 | Outpatient (CLI) | payer OTHER, SELFPAY ==
--- NOTE | 2020-09-18 08:47 | US_ITS ---
STUDY: ULTRASOUND BREAST - LEFT REASON FOR EXAM: Female, 45 years old. Left axillary thickening and tenderness. TECHNIQUE: Axial and longitudinal images of the LEFT breast were performed with a high resolution ultrasound transducer. # OF IMAGES: 41 COMPARISON: Comparison is made with prior mammogram done earlier in the day. Comparison is also made with prior sonogram of the left breast dated 12/17/2010. FINDINGS: LEFT Breast: There is a 1.3 cm x 0.9 cm x 0.6 cm benign appearing left axillary lymph node. US/Breast Limited Unilateral IMPRESSION: 1.3 cm x 0.9 cm x 0.6 cm benign-appearing left axillary lymph node. ASSESSMENT CATEGORY: BIRADS Category 2: Benign. A letter regarding these results will be sent to the patient by the facility within 30 days. Electronically Signed: Victorino Qureshi MD at 10:42 EST , Service support ,
--- NOTE | 2020-09-18 08:47 | BI_ITS ---
MAMMOGRAPHY - BILATERAL DIAGNOSTIC REASON FOR EXAM: Female, 45 years old. Left axillary thickening and pain for one month. Recent cold with vaccination. PERTINENT HISTORY: Grandmother with breast cancer. Aunt with breast cancer. TECHNIQUE: Digital bilateral breast jessa (3D mammographic acquisition) in the CC and MLO projections. 2-D mediolateral oblique (MLO) and craniocaudad (CC) views of both breasts were obtained. CAD: Full Field Digital Mammography with Computer Added Detection was performed. COMPARISON: Comparison is made with prior study dated 09/10/2019 and 08/20/2018. FINDINGS: Breast Composition: There are scattered areas of fibroglandular density. There are no dominant masses or suspicious calcifications. No other significant abnormalities are identified. There has been no significant change since the prior study. BI/DIAG MAMM W/CAD, BILAT IMPRESSION: Stable bilateral diagnostic mammogram. With the patient''s history of left axillary pain and thickening, correlation with ultrasound is recommended. ASSESSMENT CATEGORY: BIRADS Category 0: Incomplete. Need additional imaging evaluation. A letter regarding these results will be sent to the patient by the facility within 30 days. Approximately 10% of breast cancers are not detected by mammography. A normal mammogram should not delay biopsy of a clinically suspicious abnormality. Electronically Signed: Victorino Qureshi MD at 10:25 EST , Service support ,
== END ==
PROVIDERS: PCP Family Medicine; Referring Provider Obstetrics & Gynecology; Visit Provider Obstetrics & Gynecology
DX: N64.4 Mastodynia (principal)
CPT/HCPCS: 76642; 77062; 77066; G0279

== ENCOUNTER → 2020-10-19 15:55 | Outpatient (CLI) | payer OTHER, SELFPAY ==
[2020-10-24 14:11] LABS: HPV Reflexed? NOT INDICATED
== END ==
PROVIDERS: PCP Family Medicine; Visit Provider Obstetrics & Gynecology
DX: Z12.4 Encounter for screening for malignant neoplasm of cervix (principal)
CPT/HCPCS: 88175; G0145

== ENCOUNTER → 2021-12-28 | Outpatient (CLI) | payer OTHER, SELFPAY ==
--- NOTE | 2021-12-28 12:16 | BI_ITS ---
MAMMOGRAPHY - BILATERAL SCREENING REASON FOR EXAM: Female, 46 years old. Routine annual screening examination. PERTINENT HISTORY: Grandmother had breast cancer. Aunt had breast cancer. TECHNIQUE: Digital bilateral breast maris (3D mammographic acquisition) in the CC and MLO projections. 2-D mediolateral oblique (MLO) and craniocaudad (CC) views of both breasts were obtained. CAD: Full Field Digital Mammography with Computer Added Detection was performed. COMPARISON: Left breast diagnostic ultrasound from 09/18/2020. Mammograms from 09/18/2020, 09/10/2019, 08/10/2019, 08/20/2018. FINDINGS: Breast Composition: There are scattered areas of fibroglandular density. There are no dominant masses or suspicious calcifications. No other significant abnormalities are identified. BI/SCRN MAMM (CAD)W/MARIS BILAT IMPRESSION: Stable bilateral screening mammogram. Yearly follow-up mammogram recommended. (A) ASSESSMENT CATEGORY: BIRADS Category 1: Negative. A letter regarding these results will be sent to the patient by the facility within 30 days. Approximately 10% of breast cancers are not detected by mammography. A normal mammogram should not delay biopsy of a clinically suspicious abnormality. [id number] Electronically Signed: Christian Avila, at 16:59 EDT ,
== END | disposition home or self-care (01) ==
LOC: OPBI 12:15
PROVIDERS: PCP Family Medicine; Visit Provider Obstetrics & Gynecology
DX: Z12.31 Encounter for screening mammogram for malignant neoplasm of breast (principal)
CPT/HCPCS: 77063; 77067

== ENCOUNTER → 2022-04-17 | Outpatient (CLI) | payer OTHER, SELFPAY ==
--- NOTE | 2022-04-17 06:34 | MRI_ITS ---
STUDY: MRA OF THE HEAD WITHOUT CONTRAST REASON FOR EXAM: Female, 47 years old. FOLLOW UP ANEURYSM TECHNIQUE: 3-D dhqk-ri-uvrglk (TOF) imaging was performed with MIPs. The study was performed unenhanced. COMPARISON: Several previous MRAs of the brain, most remote 10/23/2018. FINDINGS: Intracranial carotids: 2 mm medially directed aneurysm off the right ICA, just distal to the cavernous segment. This is not appreciably changed in size or configuration compared to 10/23/2018. Remainder of the ICAs have normal course and caliber. MCAs: No aneurysm or significant stenosis. ACAs: No aneurysm or significant stenosis. Basilar: Normal caliber. No aneurysm. Intracranial vertebrals: No aneurysm or significant narrowing. ship scraper: No aneurysm or significant narrowing. Fed by dominant P1 segments bilaterally. Cerebellar arteries: Patent bilateral posterior and anterior inferior and superior cerebellar arteries are identified. No evidence of AVM or new aneurysm. MRI/MRA Head ONLY without Contrast IMPRESSION: 2 mm medially directed aneurysm off the right ICA, just distal to the cavernous segment, unchanged compared to 10/23/2018. Electronically Signed: Trent Main MD at 8:17 EDT Reading Location ID and State: [address] [place] [address] Tel , Service support ,
== END | disposition home or self-care (01) ==
LOC: MRI 06:18
PROVIDERS: PCP Family Medicine; Referring Provider Family Medicine; Visit Provider Family Medicine
DX: I67.1 Cerebral aneurysm, nonruptured (principal)
CPT/HCPCS: 70544

== ENCOUNTER → 2023-01-01 | Outpatient (CLI) | payer OTHER, SELFPAY ==
--- NOTE | 2023-01-01 07:01 | BI_ITS ---
MAMMOGRAPHY - BILATERAL SCREENING REASON FOR EXAM: Female, 47 years old. Routine annual screening examination. PERTINENT HISTORY: Grandmother with breast cancer. Aunt with breast cancer. TECHNIQUE: Digital bilateral breast maris (3D mammographic acquisition) in the CC and MLO projections. 2-D mediolateral oblique (MLO) and craniocaudad (CC) views of both breasts were obtained. CAD: Full Field Digital Mammography with Computer Added Detection was performed. COMPARISON: Comparison is made with prior study dated December 28, 2021 and September 18, 2020. FINDINGS: Breast Composition: There are scattered areas of fibroglandular density. There are no dominant masses or suspicious calcifications. No other significant abnormalities are identified. There has been no significant change since the prior study. BI/SCRN MAMM (CAD)W/MARIS BILAT IMPRESSION: Stable bilateral screening mammogram. Yearly follow-up mammogram recommended. (A) ASSESSMENT CATEGORY: BIRADS Category 1: Negative. A letter regarding these results will be sent to the patient by the facility within 30 days. Approximately 10% of breast cancers are not detected by mammography. A normal mammogram should not delay biopsy of a clinically suspicious abnormality. [id number] Electronically Signed: Victorino Qureshi MD at 9:09 EDT ,
== END | disposition home or self-care (01) ==
LOC: OPBI 06:59
PROVIDERS: PCP Family Medicine; Referring Provider Nurse Practitioner Women's Health; Visit Provider Nurse Practitioner Women's Health
DX: Z12.31 Encounter for screening mammogram for malignant neoplasm of breast (principal)
CPT/HCPCS: 77063; 77067

== ENCOUNTER → 2023-05-26 | Outpatient (CLI) | payer OTHER, SELFPAY ==
[2023-05-26 17:49] LABS: Absolute Lymphocyte Count 1.78 X10^3/uL (0.83-4.51); Absolute Neutrophil Count 3.7 X10^3/uL (2.0-7.7); Basophil# 0.02 X10^3/uL; Basophil% 0.3 % (0-1); Eosinophil# 0.11 X10^3/uL; Eosinophils% 1.8 % (0-5); Hematocrit 40.6 % (37-47); Hemoglobin 13.6 g/dL (12.0-15.0); Lymphocyte # 1.78 X10^3/ul (0.83-4.51); Lymphocyte % 29.7 % (19-41); Mean Corp Hgb Conc 33.5 g/dL (32-36); Mean Corpuscular Hgb 31.1 pg (27.0-32.0); Mean Corpuscular Volume 92.7 fL (81-99); Mean Platelet Vol. 11.1 fl (6.2-12.0); Monocyte% 6.7 % (0-10); NRBC Flagged by Analyzer 0 % (0-5); Neutrophil # 3.69 X10^3/uL (2.7-7.7); Neutrophil % 61.5 % (47-70); Platelet Count 188 K/mm3 (150-450); RBC Distribution Width CV 11.5 % (11.6-14.6); RBC Distribution Width SD 38.8 fl (35.1-43.9); Red Blood Count 4.38 M/mm3 (4.2-5.4)
[2023-05-26 18:24] LABS: Erythrocyte Sedimentation Rate 5 mm/hr (0-30)
[2023-05-26 18:52] LABS: ALB/GLOB Ratio 1.1 RATIO (0.9-2.4); AST(SGOT) 15 U/L (15-37); Alanine Aminotransfer ALT/SGPT 22 U/L (13-56); Albumin, Serum 3.8 g/dL (3.2-5.0); Alkaline Phosphatase 47 U/L (45-117); Anion Gap 4 (5-15); BUN 11 mg/dL (7-18); BUN/Creat Ratio 13.5 RATIO (10-20); CRP < 2.90 mg/L (0.0-3.0); Calcium,Total 8.7 mg/dL (8.5-10.1); Chloride 107 mmol/L (98-107); Color, Urine Yellow (Yellow); Creatinine, Serum 0.81 mg/dL (0.55-1.02); EST Glomerular Filtration Rate 80 mL/min (>60); Est Glom Filt Rate - Afr Amer 97 mL/min (>60); Globulin 3.5 g/dL (2.2-4.2); Glucose 87 mg/dL (74-106); Glucose, Dipstick Normal (Normal); Ketone-Dipstick Negative (Negative); Leukocyte Esterase-Dipstick Negative /ul (Negative); Nitrite-Dipstick Negative (Negative); Occult Blood-Urine Negative /ul (Negative); Potassium 3.2 mmol/L (3.5-5.1); Protein, Total 7.3 g/dL (6.4-8.2); Protein-Dipstick Negative (Negative); Sodium Level 134 mmol/L (136-145); Thyroid Stim Hormone (TSH) 1.23 uIU/mL (0.358-3.74); Urine Bilirubin Dipstick Negative (Negative); Urine Clarity Clear (Clear); Urine Urobilinogen Normal (Normal)
== END | disposition home or self-care (01) ==
PROVIDERS: PCP Family Medicine; Referring Provider Internal Medicine Rheumatology; Visit Provider Internal Medicine Rheumatology
DX: M54.6 Pain in thoracic spine (principal); G89.29 Other chronic pain
CPT/HCPCS: 36415; 80053; 81002; 82306; 84443; 85025; 85652; 86140

== ENCOUNTER → 2023-06-16 | Outpatient (CLI) | payer OTHER, SELFPAY ==
[2023-06-21 08:10] LABS: HPV APTIMA, High Risk Negative (Negative)
== END | disposition home or self-care (01) ==
PROVIDERS: Referring Provider Nurse Practitioner Women's Health; Visit Provider Nurse Practitioner Women's Health
DX: Z12.4 Encounter for screening for malignant neoplasm of cervix (principal)
CPT/HCPCS: 87624; 88175; G0145

== ENCOUNTER → 2024-03-16 | Outpatient (CLI) | payer OTHER, SELFPAY ==
--- NOTE | 2024-03-16 16:16 | BI_ITS ---
MAMMOGRAPHY - BILATERAL SCREENING REASON FOR EXAM: Female, 49 years old. Routine annual screening examination. PERTINENT HISTORY: Grandmother with breast cancer. Aunt with breast cancer. TECHNIQUE: Digital bilateral breast maris (3D mammographic acquisition) in the CC and MLO projections. 2-D mediolateral oblique (MLO) and craniocaudad (CC) views of both breasts were obtained. CAD: Full Field Digital Mammography with Computer Added Detection was performed. COMPARISON: Comparison is made with prior study dated January 01, 2023 and December 28, 2021. FINDINGS: Breast Composition: There are scattered areas of fibroglandular density. There are no dominant masses or suspicious calcifications. No other significant abnormalities are identified. There has been no significant change since the prior study. BI/SCRN MAMM (CAD)W/MARIS BILAT IMPRESSION: Stable bilateral screening mammogram. Yearly follow-up mammogram recommended. (A) ASSESSMENT CATEGORY: BIRADS Category 1: Negative. A letter regarding these results will be sent to the patient by the facility within 30 days. Approximately 10% of breast cancers are not detected by mammography. A normal mammogram should not delay biopsy of a clinically suspicious abnormality. [id number] Electronically Signed: Victorino Qureshi MD at 8:18 EDT ,
== END | disposition home or self-care (01) ==
LOC: OPBI 16:14
PROVIDERS: PCP Family Medicine; Referring Provider Family Medicine; Visit Provider Family Medicine
DX: Z12.31 Encounter for screening mammogram for malignant neoplasm of breast (principal)
CPT/HCPCS: 77063; 77067

== ENCOUNTER → 2024-04-21 | Outpatient (CLI) | payer OTHER, SELFPAY ==
--- NOTE | 2024-04-21 06:46 | MRI_ITS ---
EXAM: MR ANGIOGRAPHY HEAD WITHOUT INTRAVENOUS CONTRAST CLINICAL INDICATION: H/O 2mm R ICA ANEURYSM TECHNIQUE: Routine [facility] [place]/brain 3D time of flight MR angiogram protocol was performed without intravenous contrast. High-field strength MRI. COMPARISON: 04/17/2022. FINDINGS: RIGHT INTERNAL CAROTID ARTERY: No acute findings. No significant stenosis at the intracranial/visualized segments. No change in the 2 mm medially directed aneurysm of the right internal carotid artery just distal to the cavernous segment. RIGHT ANTERIOR CEREBRAL ARTERY: Unremarkable. No occlusion or significant stenosis. Anterior communicating artery is present. No aneurysm. RIGHT MIDDLE CEREBRAL ARTERY: Unremarkable. No occlusion or significant stenosis. No aneurysm. RIGHT POSTERIOR CEREBRAL ARTERY: Unremarkable. No occlusion or significant stenosis. No aneurysm. RIGHT VERTEBRAL ARTERY: Unremarkable as visualized. No significant stenosis at the intradural/visualized segments. No aneurysm. LEFT INTERNAL CAROTID ARTERY: No acute findings. No significant stenosis at the intracranial/visualized segments. No aneurysm. LEFT ANTERIOR CEREBRAL ARTERY: Unremarkable. No occlusion or significant stenosis. Anterior communicating artery is present. No aneurysm. LEFT MIDDLE CEREBRAL ARTERY: Unremarkable. No occlusion or significant stenosis. No aneurysm. LEFT POSTERIOR CEREBRAL ARTERY: Unremarkable. No occlusion or significant stenosis. No aneurysm. LEFT VERTEBRAL ARTERY: Unremarkable as visualized. No significant stenosis at the intradural/visualized segments. No aneurysm. BASILAR ARTERY: Unremarkable. No significant stenosis. No aneurysm. OTHER VASCULATURE: No vascular malformation. MRI/MRA Head ONLY without Contrast IMPRESSION: No change in the 2 mm medially directed aneurysm of the right internal carotid artery just distal to the cavernous segment. Electronically Signed: Jesu Cuellar MD at 6:14 EDT ,
== END | disposition home or self-care (01) ==
LOC: MRI 06:11
PROVIDERS: PCP Family Medicine
DX: I67.1 Cerebral aneurysm, nonruptured (principal)
CPT/HCPCS: 70544

== ENCOUNTER → 2025-04-05 | Outpatient (CLI) | payer OTHER, SELFPAY ==
--- NOTE | 2025-04-05 06:59 | BI_ITS ---
EXAM: SCRN MAMM (CAD)W/MARIS BILAT DATE: 04/05/2025 CLINICAL HISTORY: F, Age 50 y/o , SCREENING FOR BREAST CANCER Grandmother with breast cancer. Aunt with breast cancer. TECHNIQUE: Procedure Code: [id number] Modality: MG Procedure: SCRN MAMM (CAD)W/MARIS BILAT COMPARISON: Prior exam(s) dated March 16, 2024.. FINDINGS: TISSUE DENSITY: There are scattered areas of fibroglandular density. Bilateral Breast Mammographic Findings: No significant masses, calcifications or other abnormalities are identified. No suspicious masses, areas of developing architectural distortion, or suspicious calcifications. There has been no significant interval change. BI/SCRN MAMM (CAD)W/MARIS BILAT IMPRESSION: Stable bilateral screening mammogram. OVERALL FINAL ASSESSMENT BI-RADS 1: NEGATIVE. RECOMMENDATION: Routine annual follow-up in 1 Year A letter with findings and recommendations will be mailed to the patient. Reading Location: [place] [address]
--- OUTSIDE RECORDS SUMMARY | 2025-04-05 07:20 | XMS RPT_ITS | CCD ---
Author Organization [facility] Care Team Providers Care Automotive Painter Name Role Phone Gareth Gomez Unavailable Malys DO, Lesli A Primary Care Provider JOSE WILKES Attending Unavailable MALYS, LESLI A Referring Unavailable MALYS, LESLI A Primary Care Unavailable BenysDr. Ballesteros Referring Provider Nabila TECHNICAL SALES REPRESENTATIVES, TECHNICAL SALES REPRESENTATIVES-C Bess Attending Provider [phone] MALYS, LESLI A Primary Care Unavailable GIRMA DENNY Attending Unavailable JUAN, FLORINDA Referring Unavailable MALYS, LESLI A Primary Care Unavailable JUAN, FLORINDA Attending Unavailable MALYS, LESLI A Referring Unavailable MALYS, LESLI A Primary Care Unavailable Malys DO, Lesli A Primary Care Provider Malys, Lesli Attending Unavailable Malys, Lesli Primary Care Unavailable Malys, Lesli Referring Unavailable Malys, Lesli Primary Care Unavailable Assessment, Health Risk Referring Unavaila ble Assessment, Health Risk Attending Unavaila ble Nabila TECHNICAL SALES REPRESENTATIVES, Bess Referring Unavailable Theriot TECHNICAL SALES REPRESENTATIVES, Bess Attending Unavailable Malys, Lesli Primary Care Unavailable Malys, Lesli Primary Care Unavailable Nabila TECHNICAL SALES REPRESENTATIVES, Bess Attending Unavailable Malys, Lesli Referring Unavailable Malys, Lesli Primary Care Unavailable PEERLESS, KEKE Referring Unavailable PEERLESS, KEKE Attending Unavailable Medications Current Medications Medication Drug Class(es) Dates Sig (Normalized) Sig (Original) MULTI-VITAMIN ORAL (2 sources) MULTI-VITAMIN OR AL Take by mouth. 0 Active Comment on above: Take by mouth. Multivitamin preparation (1 source) Start: 06-16-2023 take 1 tablet by mouth once daily Multivitamin Active 1 TABLET PO DAILY June 16, 2023 12:00am Vit B Cmplx 3-FA-Vit C-Biotin tablet (2 sources) Vit B Cmplx 3-FA-Vit C-Biotin tablet Take 1 tablet by mouth daily with breakfast. 0 Active Comment on above: Take 1 tablet by vahe th daily with breakfast. Completed/Discontinued Medications Medication Drug Class(es) Dates Sig (Normalized) Sig (Original) amoxicillin 500 mg oral capsule (5 sources) Penicillin-class Antibacterial Start: 1 End: 1 take 1000 mg by mouth twice daily Amoxicillin Discontinued 1000 MG PO TWICE A DAY 56 14 January 14, 2021 11:00pm January 28, 2021 11:01pm dexlansoprazole 60 mg delayed release oral capsule (5 sources) Proton Pump Inhibitor Start: 8 End: 3 take 1 capsule by mouth at lunch Dexlansoprazole (Dexilant) 60 MG capsule,biphase delayed releas Discontinued 60 MG PO WITH LUNCH September 22, 2017 12:00am June 16, 2023 9:55am ergocalciferol 1.25 mg oral capsule (1 source) Provitamin D2 Compound take 1 capsule by mouth every month ergocalciferol 50,000 unit capsule (VITAMIN D2, DRISDOL) Take 50,000 Units by mouth once every month. 0 Active Comment on above: Take 50,000 Units by mouth once every month. esomeprazole 20 mg delayed release oral capsule (4 sources) Proton Pump Inhibitor Start: 6 End: 7 NEXIUM 24HR 20 MG CPDR Take 1 po daily ESOMEPRAZOLE MAGNESIUM [id number] Gustabo A Placido DO hydroxychloroquine sulfate 200 mg oral tablet (1 source) Antimalarial, Antirheumatic Agent hydrOXYchloroQUINE (PLAQUENIL) 200 mg tablet Take by mouth once daily. 0 Active Comment on above: Take by mouth once d aily. oxyCODONE hydrochloride 5 mg oral tablet (5 sources) Opioid Agonist Start: 8 End: 3 take 5 mg by mouth every six hours as needed Oxycodone Discontinued 5 MG PO EVERY 6 HOURS NEEDED 10 7 September 29, 2017 12:00am June 16, 2023 9:55am valACYclovir 1000 mg oral tablet (2 sources) Herpesvirus Nucleoside Analog DNA Polymerase Inhibitor, Herpes Simplex Virus Nucleoside Analog DNA Polymerase Inhibitor, Herpes Zoster Virus Nucleoside Analog DNA Polymerase Inhibitor Start: 6 End: 6 take 2 tablets by mouth once daily as needed VALACYCLOVIR HCL 1 GM TABS Two tablets by mouth daily for one day; repeat as needed VALACYCLOVIR HCL [id number] Gustabo Cummins DO Problems Active Problems Problem Classification Problem Date Documented Da te Episodic/Chronic Inflammation; infection of eye (except that caused by tuberculosis or sexually transmitteddisease) (5 sources) Conjunctivitis; Translations: [Unspecified conjunctivitis] 09-29-2017 Episodic Other and ill-defined cerebrovascular disease (2 sources) Cerebral arterial aneurysm; Translations: [Cerebral aneurysm, nonruptured] Chronic Other and ill-defined cerebrovascular disease (2 sources) Intracranial aneurysm; Translations: [Cerebral aneurysm, nonruptured] Onset: 06-05-2019 06-05-2019 Chronic Other and ill-defined cerebrovascular disease (2 sources) Cerebral aneurysm, nonruptured; Translations: [Nonruptured cerebral aneurysm] Onset: 05-06-2022 Chronic Other and ill-defined cerebrovascular disease (1 source) Aneurysm of right internal carotid artery; Translations: [Cerebral aneurysm, nonruptured] 06-16-2023 Chronic Other bone disease and musculoskeletal deformities (10 sources) Segmental and somatic dysfunction; Translations: [Segmental and somatic dysfunction of lumbar region] 09-04-2020 Episodic Other nervous system disorders (1 source) Other chronic pain; Translations: [Chronic bilateral thoracic back pain] Onset: 05-23-2023 Chronic Other screening for suspected conditions (not mental disorders or infectious disease) (3 sources) Encounter for screening mammogram for malignant neoplasm of breast; Translations: [Encounter for other screening for malignant neoplasm of breast] Onset: 04-06-2024 Episodic Other upper respiratory infections (4 sources) Acute maxillary sinusitis; Translations: [Acute maxillary sinusitis, unspecified] 01-15-2021 Episodic Spondylosis; intervertebral disc disorders; other back problems (1 source) Displacement of lumbar intervertebral disc without myelopathy; Translations: [Other intervertebral disc displacement, lumbar region] Onset: 05-24-2023 05-24-2023 Chronic Past or Other Problems Problem Classification Problem Date Documented Date Episodic/Chronic Other connective tissue disease (2 sources) H/O: skin disorder; Translations: [Personal history of other diseases of the musculoskeletal system and connective tissue] Onset: 06-05-2019 Resolved: 05-24-2023 06-05-2019 Episodic Other nervous system disorders (1 source) H/O: iritis; Translations: [Personal history of other diseases of the nervous system and sense organs] Onset: 05-24-2023 05-24-2023 Episodic Residual codes; unclassified (1 source) Human leukocyte antigen B27 test positive; Translations: [Genetic susceptibility to other disease] Onset: 05-24-2023 05-24-2023 Episodic Spondylosis; intervertebral disc disorders; other back problems (7 sources) Thoracic neuritis; Translations: [Radiculopathy, thoracic region] Onset: 05-23-2023 09-04-2020 Episodic Unclassified (4 sources) History of Vitamin Deficiency 03-02-2022 Results Test Name Value Interpretation Reference Range Facility Event Attendant Office Visit Reporton 06-17-2024 Event Attendant Office Visit Report [facility] [address], [address] [place] [address] OFFICE VISIT Date of Service: 06/17/24 MR#: [id number] Acct: [id number] Name: SHEEBA ROSE Rep #: [id number] : 1975 Provider: TERE rizo Age/Sex: 49/F [place] [facility] [place]: Signed Intake Vital Signs 06/16/23 09:52 06/17/24 14:17 06/17/24 14:21 Height 5 ft 5 in 5 ft 5 in 5 ft 5 in Weight: 145 lb 6 oz BMI 24.2 BP 110/78 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 Date Name GA/Weeks Outcome Route Bth Weight Gen Labor Lgth Anesthesia Del Locatn Provider FOB Unknown Kumar 2002 Unknown Chris 2004 Male HPI Encounter for routine gynecological examination Details: SHEEBA ROSE is a 49 year old who presents for annual exam. Denies concerns. No menses since ablation Last PAP: 2022 History of abnormal PAP: no Last mammogram: 03/2024 History of abnormal mammogram: no Colon cancer screenin Other preventative health care screenings: Malys Female Reproductive History Questions: metorrhagia: No, sexually active: Yes, dyspareunia: No and PCB: No ROS Const Constitutional: Denies fatigue, weight gain or weight loss Cardio Card: Denies chest pain Resp Resp: Denies cough or dyspnea on exertion GI GI: Denies abdominal pain, bloating, change in stool character, constipation or vomiting : Reports as per HPI; Denies difficulty voiding, pelvic pain, urinary frequency, urinary incontinence, urinary urgency, vaginal discharge or vaginal pruritus Exam Const General: cooperative, healthy appearing, no acute distress and well developed Orientation: alert, oriented to person and oriented to place [facility] Head: normal to inspection Neck Neck: normal visual inspection Thyroid: thyroid normal Lymphatic: no lymphadenopathy noted Chest Breast inspection: normal inspection of the breasts and normal inspection of the axillae Breast palpation: normal palpation of the breasts, normal palpation of the axillae and no axillary lymphadenopathy Resp Effort Inspection: normal respiratory effort GI Palpation: soft, no masses and nontender Rectal Exam: deferred External Female Exam: normal external appearance and normal appearance of the urethra Urethra: normal appearance of the urethra and normal palpation Speculum Exam - Vagina: normal appearance of the vagina and normal vaginal discharge Speculum Exam - Cervix: normal appearance of the cervix Bimanual Exam- Vagina Uterus: normal bimanual exam, uterine size normal, uterine shape normal and non-tender Bimanual Exam- Adnexa, other: normal adnexae, no masses, normal and non-tender Pelvic Support: normal Neuro General: patient alert and patient oriented x3 Psych Affect: normal affect Coding Level of Care Code Off vis,est,prev 40-64yrs Diagnoses Encounter for gynecological examination without abnormal finding Z01.419 Gynecological examination findings: abnormal findings ABSENT Assessment and Plan Assessment and Plan (1) Encounter for routine gynecological examination: Qualifiers: Gynecological examination fin (more content not included)... Normal [facility] MRA Head ONLY without Contra ston 04-21-2024 MRA Head ONLY without Contrast [facility] Imaging Services [address] [place] [address] [id number] MRA Head ONLY without Contrast MR#: [id number] Acct: [id number] Name: SHEEBA ROSE ANDREW Rep #: [id number] : 1975 F 49 From: Jesu De Paz PCP: Dr. Lesli Burnham, DO Status: REG CLI Study: MRA Head ONLY without Contrast Date of Exam: 0 04/21/24 Exam# [id number] Ordering Dr: LEIGH MCCONNELL [id number] EXAM: MR ANGIOGRAPHY HEAD WITHOUT INTRAVENOUS CONTRAST CLINICAL INDICATION: H/O 2mm R ICA ANEURYSM TECHNIQUE: Routine tanana of [place]/brain 3D time of flight MR angiogram protocol was performed without intravenous contrast. High-field strength MRI. COMPARISON: 04/17/2022. FINDINGS: RIGHT INTERNAL CAROTID ARTERY: No acute findings. No significant stenosis at the intracranial/visualiz ed segments. No change in the 2 mm medially directed aneurysm of the right internal carotid artery just distal to the cavernous segment. RIGHT ANTERIOR CEREBRAL ARTERY: Unremarkable. No occlusion or significant stenosis. Anterior communicating artery is present. No aneurysm. RIGHT MIDDLE CEREBRAL ARTERY: Unremarkable. No occlusion or significant stenosis. No aneurysm. RIGHT POSTERIOR CEREBRAL ARTERY: Unremarkable. No occlusion or significant stenosis. No aneurysm. RIGHT VERTEBRAL ARTERY: Unremarkable as visualized. No significant stenosis at the intradural/visualized segments. No aneurysm. LEFT INTERNAL CAROTID ARTERY: No acute findings. No significant stenosis at the intracranial/visualiz ed segments. No aneurysm. LEFT ANTERIOR CEREBRAL ARTERY: Unremarkable. No occlusion or significant stenosis. Anterior communicating artery is present. No aneurysm. LEFT MIDDLE CEREBRAL ARTERY: Unremarkable. No occlusion or significant stenosis. No aneurysm. LEFT POSTERIOR CEREBRAL ARTERY: Unremarkable. No occlusion or significant stenosis. No aneurysm. LEFT VERTEBRAL ARTERY: Unremarkable as visualized. No significant stenosis at the intradural/visualized segments. No aneurysm. BASILAR ARTERY: Unremarkable. No significant stenosis. No aneurysm. OTHER VASCULATURE: No vascular malformation. MRI/MRA Head ONLY without Contrast IMPRESSION: No change in the 2 mm medially directed aneurysm of the right internal carotid artery just distal to the cavernous segment. Electronically Signed: Jesu Cuellar MD at 6:14 EDT , CC: Dr. Lesli Burnham, DO; LEIGH MCCONNELL Examination Proctor: Signed Normal [facility] CBC, Employeeon 03-31-2024 Absolute Lymph 1.77 X10 3/uL Normal 0.83-4.51 [facility] Comment on above: Performed By: #### L 400.0100, L500.2900, L100.0200 #### [facility] [address] [place], [place], [id number] Absolute Neut 3.2 X10 3/uL Normal 2.0-7.7 [facility] Comment on above: Performed By: #### L 400.0100, L500.2900, L100.0200 #### [facility] [address] [place], [address] Basophils/100 WBC (Bld) 0.4 % Normal 0-1 [facility] Comment on above: Performed By: #### L 400.0100, L500.2900, L100.0200 #### [facility] [address] [place], [address] Eosinophils/100 WBC (Bld) 2.0 % Normal 0-5 [facility] Comment on above: Performed By: #### L 400.0100, L500.2900, L100.0200 #### [facility] [address] [place], [address] Erythrocyte distribution width (RBC) [Ratio] 11.9 % Normal 11.6-14.6 [facility] Comment on above: Performed By: #### L 400.0100, L500.2900, L100.0200 #### [facility] [address] [place], [address] Hematocrit (Bld) [Volume fraction] 42.0 % Normal 37-47 [facility] Comment on above: Performed By: #### L 400.0100, L500.2900, L100.0200 #### [facility] [address] [place], [address] Hemoglobin (Bld) [Mass/Vol] 13.8 g/dL Normal 12.0-15.0 [facility] Comment on above: Performed By: #### L 400.0100, L500.2900, L100.0200 #### [facility] [address] [place], [address] Lymphocytes/100 WBC (Bld) 32.5 % Normal 19-41 [facility] Comment on above: Performed By: #### L 400.0100, L500.2900, L100.0200 #### [facility] [address] [place], [address] MCH (RBC) [Entitic mass] 30.6 pg Normal 27.0-32.0 [facility] Comment on above: Performed By: #### L 400.0100, L500.2900, L100.0200 #### [facility] [address] [place], [address] MCHC (RBC) [Mass/Vol] 32.9 g/dL Normal 32-36 [facility] Comment on above: Performed By: #### L 400.0100, L500.2900, L100.0200 #### [facility] [address] [place], [address] MCV (RBC) [Entitic vol] 93.1 fL Normal 81-99 [facility] Comment on above: Performed By: #### L 400.0100, L500.2900, L100.0200 #### [facility] [address] [place], [address] Monocytes/100 WBC (Bld) 6.4 % Normal 0-10 [facility] Comment on above: Performed By: #### L 400.0100, L500.2900, L100.0200 #### [facility] [address] [place], [address] Neutrophils/100 WBC (Bld) 58.3 % Normal 47-70 [facility] Comment on above: Performed By: #### L 400.0100, L500.2900, L100.0200 #### [facility] [address] [place], [address] NRBC # 0.00 10 3/uL Normal 0-5 [facility] Comment on above: Performed By: #### L 400.0100, L500.2900, L100.0200 #### [facility] [address] [place], [address] Nucleated RBC (Bld) [#/Vol] 0 10*3/uL Normal 0-5 [facility] Comment on above: Performed By: #### L 400.0100, L500.2900, L100.0200 #### [facility] [address] [place], [address] Platelet mean volume (Bld) [Entitic vol] 11.0 fL Normal 6.2-12.0 [facility] Comment on above: Performed By: #### L 400.0100, L500.2900, L100.0200 #### [facility] [address] [place], [address] Platelets (Bld) [#/Vol] 189 10*3/uL Normal 150-450 [facility] Comment on above: Performed By: #### L 400.0100, L500.2900, L100.0200 #### [facility] [address] [place], [address] RBC (Bld) [#/Vol] 4.51 10*6/uL Normal 4.2-5.4 [facility] Comment on above: Performed By: #### L 400.0100, L500.2900, L100.0200 #### [facility] [address] [place], [address] RDW SD 41.1 fl Normal 35.1-43.9 [facility] Comment on above: Performed By: #### L 400.0100, L500.2900, L100.0200 #### [facility] [address] [place], [address] WBC (Bld) [#/Vol] 5.4 10*3/uL Normal 4.4-11.0 [facility] Comment on above: Performed By: #### L 400.0100, L500.2900, L100.0200 #### [facility] [address] [place], [address] Employee Profile[employer] 4 Albumin [Mass/Vol] 3.8 g/dL Normal 3.2-5.0 [facility] Comment on above: Performed By: #### L 400.0100, L500.2900, L100.0200 #### [facility] [address] [place], [address] Albumin/Globulin [Mass ratio] 1.2 {ratio} Normal 0.9-2.4 [facility] Comment on above: Performed By: #### L 400.0100, L500.2900, L100.0200 #### [facility] [address] [place], [address] ALK P 51 U/L Normal 45-117 [facility] Comment on above: Performed By: #### L 400.0100, L500.2900, L100.0200 #### [facility] [address] [place], [address] ALT [Catalytic activity/Vol] 20 U/L Normal 13-56 [facility] Comment on above: Performed By: #### L 400.0100, L500.2900, L100.0200 #### [facility] [address] [place], [address] AST [Catalytic activity/Vol] 16 U/L Normal 15-37 [facility] Comment on above: Performed By: #### L 400.0100, L500.2900, L100.0200 #### [facility] [address] [place], [address] Bilirubin [Mass/Vol] 0.40 mg/dL Normal 0.20-1.00 [facility] Comment on above: Result Comment: For patients on eltrombopag therapy, use of Dimension [place] TBIL is not recommended. Performed By: #### L 400.0100, L500.2900, L100.0200 #### [facility] [address] [place], [address] Bilirubin.direct [Mass/Vol] 0.10 mg/dL Normal 0.00-0.30 [facility] Comment on above: Performed By: #### L 400.0100, L500.2900, L100.0200 #### [facility] [address] [place], [address] BUN/CRE 15.9 RATIO Normal 10-20 [facility] Comment on above: Performed By: #### L 400.0100, L500.2900, L100.0200 #### [facility] [address] [place], [address] CA,Total 9.1 mg/dL Normal 8.5-10.1 [facility] Comment on above: Performed By: #### L 400.0100, L500.2900, L100.0200 #### [facility] [address] [place], [address] Chloride [Moles/Vol] 107 mmol/L Normal 98-107 [facility] Comment on above: Performed By: #### L 400.0100, L500.2900, L100.0200 #### [facility] [address] [place], [address] CHOL:HDL 3.10 Normal [facility] Comment on above: Performed By: #### L 400.0100, L500.2900, L100.0200 #### [facility] [address] [place], [address] Cholesterol [Mass/Vol] 207 mg/dL High 200 [facility] Comment on above: Result Comment: <200 mg/dL Desirable 200-240 mg/dL Borderline >240 mg/dL High Risk Performed By: #### L 400.0100, L500.2900, L100.0200 #### [facility] [address] [place], [address] Cholesterol in HDL [Mass/Vol] 66 mg/dL Normal [facility] Comment on above: Result Comment: The drugs N-Acetylcysteine and Metamizole may falsely depress this assay. Reference Range HDL <40 mg/dL Low HDL Cholesterol HDL >or= 60 mg/dL High HDL Cholesterol Performed By: #### L 400.0100, L500.2900, L100.0200 #### [facility] [address] [place], [address] Cholesterol in LDL [Mass/Vol] 126 mg/dL Normal 0-130 [facility] Comment on above: Performed By: #### L 400.0100, L500.2900, L100.0200 #### [facility] [address] [place], [address] Cholesterol in VLDL [Mass/Vol] 15 mg/dL Normal 5-40 [facility] Comment on above: Performed By: #### L 400.0100, L500.2900, L100.0200 #### [facility] [address] [place], [address] CO2 [Moles/Vol] 26.0 mmol/L Normal 21.0-32.0 [facility] Comment on above: Performed By: #### L 400.0100, L500.2900, L100.0200 #### [facility] [address] [place], [address] Creatinine [Mass/Vol] 0.88 mg/dL Normal 0.55-1.02 [facility] Comment on above: Result Comment: The validity of the calculated GFR GFRAA in patients over 70 years has not been determined. Clinical correlation is essential. Performed By: #### L 400.0100, L500.2900, L100.0200 #### [facility] [address] [place], [address] EST GFR - AA 88 mL/min Normal >60 [facility] Comment on above: Result Comment: Afri can [place] GFR Calc Performed By: #### L 400.0100, L500.2900, L100.0200 #### [facility] [address] [place], [address] GAP 6 Normal 5-15 [facility] Comment on above: Performed By: #### L 400.0100, L500.2900, L100.0200 #### [facility] [address] [place], [address] GFR/1.73 sq M.predicted among non-blacks MDRD (S/P/Bld) [Vol rate/Area] 73 mL/min/{1.73_m2} Normal >60 [facility] Comment on above: Result Comment: Non- GFR Calc Performed By: #### L 400.0100, L500.2900, L100.0200 #### [facility] [address] [place], [address] Globulin (S) [Mass/Vol] 3.3 g/dL Normal 2.2-4.2 [facility] Comment on above: Performed By: #### L 400.0100, L500.2900, L100.0200 #### [facility] [address] [place], [address] Glucose [Mass/Vol] 101 mg/dL Normal 74-106 [facility] Comment on above: Result Comment: Fast ing Glucose result from 100 to 125 mg/dL suggests IMPAIRED HOMEOSTASIS per A.D.A. criteria. Performed By: #### L 400.0100, L500.2900, L100.0200 #### [facility] [address] [place], [address] LDH 146 U/L Normal 84-246 [facility] Comment on above: Performed By: #### L 400.0100, L500.2900, L100.0200 #### [facility] [address] [place], [address] Phosphate [Mass/Vol] 3.3 mg/dL Normal 2.5-4.9 [facility] Comment on above: Performed By: #### L 400.0100, L500.2900, L100.0200 #### [facility] [address] [place], [address] Potassium [Moles/Vol] 4.1 mmol/L Normal 3.5-5.1 [facility] Comment on above: Performed By: #### L 400.0100, L500.2900, L100.0200 #### [facility] [address] [place], [address] Sodium [Moles/Vol] 139 mmol/L Normal 136-145 [facility] Comment on above: Performed By: #### L 400.0100, L500.2900, L100.0200 #### [facility] [address] [place], [address] T PROT 7.1 g/dL Normal 6.4-8.2 [facility] Comment on above: Performed By: #### L 400.0100, L500.2900, L100.0200 #### [facility] [address] [place], [address] Triglyceride [Mass/Vol] 74 mg/dL Normal [facility] Comment on above: Result Comment: The drugs N-Acetylcysteine and Metamizole may falsely depress this assay. Serum Triglycerides Reference Interval Normal <150 mg/dL Borderline high 150 - 199 mg/dL High 200 - 499 mg/dL Very High > or = 500 mg/dL Performed By: #### L 400.0100, L500.2900, L100.0200 #### [facility] [address] [place], [address] Urea nitrogen [Mass/Vol] 14 mg/dL Normal 7-18 [facility] Comment on above: Performed By: #### L 400.0100, L500.2900, L100.0200 #### [facility] [address] [place], [address] URIC 3.9 mg/dL Normal 2.6-6.0 [facility] Comment on above: Result Comment: The drugs N-Acetylcysteine and Metamizole may falsely depress this assay. Performed By: #### L 400.0100, L500.2900, L100.0200 #### [facility] [address] [place], [address] Urinalysis, Employeeon 03-31 BILIRUBIN URINE Negative Normal Negative [facility] Comment on above: Performed By: #### L 400.0100, L500.2900, L100.0200 #### [facility] [address] [place], [address] Clarity (U) Clear Normal Clear [facility] Comment on above: Performed By: #### L 400.0100, L500.2900, L100.0200 #### [facility] [address] [place], [address] Color (U) Yellow Normal Yellow [facility] Comment on above: Performed By: #### L 400.0100, L500.2900, L100.0200 #### [facility] [address] [place], [address] GLUCOSE, UR Normal Normal Normal [facility] Comment on above: Performed By: #### L 400.0100, L500.2900, L100.0200 #### [facility] [address] [place], [address] KETONE UR Negative Normal Negative [facility] Comment on above: Performed By: #### L 400.0100, L500.2900, L100.0200 #### [facility] [address] [place], [address] LEUK ESTERASE Negative Normal Negative [facility] Comment on above: Performed By: #### L 400.0100, L500.2900, L100.0200 #### [facility] [address] [place], [address] Nitrite Ql (U) Negative Normal Negative [facility] Comment on above: Performed By: #### L 400.0100, L500.2900, L100.0200 #### [facility] [address] [place], [address] OCCULT BLOOD-UR Negative Normal Negative [facility] Comment on above: Performed By: #### L 400.0100, L500.2900, L100.0200 #### [facility] [address] [place], [address] pH UR 7.0 Normal 5.0 - 8.0 [facility] Comment on above: Performed By: #### L 400.0100, L500.2900, L100.0200 #### [facility] [address] [place], [address] PROT DIPSTX Negative Normal Negative [facility] Comment on above: Performed By: #### L 400.0100, L500.2900, L100.0200 #### [facility] [address] [place], [address] SP.GR. DIPSTX 1.005 Normal 1.002-1.030 [facility] Comment on above: Performed By: #### L 400.0100, L500.2900, L100.0200 #### [facility] [address] [place], [address] UROBILI Normal Normal Normal [facility] Comment on above: Performed By: #### L 400.0100, L500.2900, L100.0200 #### [facility] [address] [place], [address] SCRN MAMM (CAD)W/MARIS BILATo n 03-16-2024 SCRN MAMM (CAD)W/MARIS BILAT [facility] Imaging Services [address] [place] [place] [address] SCRN MAMM (CAD)W/MARIS BILAT MR#: [id number] Acct: [id number] Name: SHEEBA ROSE Rep #: [id number] : 1975 F 49 From: Victorino phillips MD PCP: Dr. Lesli Burnham DO Status: [facility] Study: SCRN MAMM (CAD)W/MARIS BILAT Date of Exam: 03/04 10/25 Exam# [id number] Ordering Dr: Lesli Burnham DO [id number] MAMMOGRAPHY - BILATERAL SCREENING REASON FOR EXAM: Female, 49 years old. Routine annual screening examination. PERTINENT HISTORY: Grandmother with breast cancer. Aunt with breast cancer. TECHNIQUE: Digital bilateral breast maris (3D mammographic acquisition) in the CC and MLO projections. 2-D mediolateral oblique (MLO) and craniocaudad (CC) views of both breasts were obtained. CAD: Full Field Digital Mammography with Computer Added Detection was performed. COMPARISON: Comparison is made with prior study dated January 01, 2023 and December 28, 2021. FINDINGS: Breast Composition: There are scattered areas of fibroglandular density. There are no dominant masses or suspicious calcifications. No other significant abnormalities are identified. There has been no significant change since the prior study. BI/SCRN MAMM (CAD)W/MARIS BILAT IMPRESSION: Stable bilateral screening mammogram. Yearly follow-up mammogram recommended. (A) ASSESSMENT CATEGORY: BIRADS Category 1: Negative. A letter regarding these results will be sent to the patient by the facility within 30 days. Approximately 10% of breast cancers are not detected by mammography. A normal mammogram should not delay biopsy of a clinically suspicious abnormality. [id number] Electronically Signed: Victorino Qureshi MD at 8:18 EDT , CC: Dr. Lesli Burnham, DO Examination Proctor: Signed Normal [facility] Absolute lymphocyte countOrd ered By: Florindasandy Martinez on 05-26-2023 Lymphocytes Auto (Unsp spec) [#/Vol] 1.78 10*3/uL 0.83-4.51 [facility] Basophil percentageOrdered B y: Florinda Martinez on 05-26-2023 Basophils/100 WBC (Bld) 0.3 % 0-1 [facility] Bilirubin [Mass/Vol] 0.40 mg/dL 0.20-1.00 [facility] Comment on above: For patients on eltr ombopag therapy, use of Dimension [place] TBIL is not recommended. Chloride [Moles/Vol] 107 mmol/L 98-107 [facility] Eosinophils/100 WBC (Bld) 1.8 % 0-5 [facility] Glucose [Mass/Vol] 87 mg/dL 74-106 [facility] Neutrophils (Bld) [#/Vol] 3.7 10*3/uL 2.0-7.7 [facility] Neutrophils/100 WBC (Bld) 61.5 % 47-70 [facility] Potassium [Moles/Vol] 3.2 mmol/L 3.5-5.1 [facility] Protein [Mass/Vol] 7.3 g/dL 6.4-8.2 [facility] Sodium [Moles/Vol] 134 mmol/L 136-145 [facility] WBC (Bld) [#/Vol] 6.0 10*3/uL 4.4-11.0 [facility] Bilirubin Test strip Ql (U)O rdered By: Florinda Martinez on 05-26-2023 Bilirubin Ql (U) Negative Negative [facility] Blood erythrocytes count (nu mber/volume)Ordered By: Florinda Martinez on 05-26-2023 RBC (Bld) [#/Vol] 4.38 10*6/uL 4.2-5.4 [facility] Blood hemoglobin measurement (mass/volume)Ordered By: Florinda Martinez on 05-26-2023 Hemoglobin (Bld) [Mass/Vol] 13.6 g/dL 12.0-15.0 [facility] Blood lymphocytes/100 leukoc ytesOrdered By: Florinda Martinez on 05-26-2023 Lymphocytes/100 WBC (Bld) 29.7 % 19-41 [facility] Blood monocytes/100 leukocyt esOrdered By: Florinda Martinez on 05-26-2023 Monocytes/100 WBC (Bld) 6.7 % 0-10 [facility] Blood platelet mean volumeOr dered By: Florinda Martinez on 05-26-2023 Platelet mean volume (Bld) [Entitic vol] 11.1 fL 6.2-12.0 [facility] Determination of erythrocyte mean corpuscular volume (MCV)Ordered By: Florinda Martinez on 05-26-2023 MCV (RBC) [Entitic vol] 92.7 fL 81-99 [facility] Erythrocyte sedimentation ra teOrdered By: Florinda Martinez on 05-26-2023 ESR (Bld) [Velocity] 5 mm/h 0-30 [facility] Hematocrit Auto (Bld) [Volum e fraction]Ordered By: Florinda Martinez on 05-26-2023 Hematocrit (Bld) [Volume fraction] 40.6 % 37-47 [facility] Ketones Test strip Ql (U)Ord ered By: Florinda Martinez on 05-26-2023 Ketones Ql (U) Negative Negative [facility] - Chemistry and C hemistry - challengeOrdered By: Florinda Martinez on 05-26-2023 ALP [Catalytic activity/Vol] 47 U/L 45-117 [facility] ALT [Catalytic activity/Vol] 22 U/L 13-56 [facility] CO2 [Moles/Vol] 23.0 mmol/L 21.0-32.0 [facility] Globulin (S) [Mass/Vol] 3.5 g/dL 2.2-4.2 [facility] Urea nitrogen/Creatinine [Mass ratio] 13.5 mg/mg 10-20 [facility] - Hematology and Cell countsOrdered By: Florinda Martinez on 05-26-2023 Erythrocyte distribution width (RBC) [Entitic vol] 38.8 fL 35.1-43.9 [facility] Erythrocyte distribution width (RBC) [Ratio] 11.5 % 11.6-14.6 [facility] Immature granulocytes/100 WBC (Bld) 0.000 % 0.0-0.9 [facility] Comment on above: IG% - Immature Granu locytes (promyelocytes, myelocytes and metamyelocytes) > 1% indicates that a LEFT SHIFT is Present. MCH (RBC) [Entitic mass] 31.1 pg 27.0-32.0 [facility] Nucleated RBC/100 WBC (Bld) [Ratio] 0 % 0-5 [facility] MCHC Auto (RBC) [Mass/Vol]Or dered By: Florinda Martinez on 05-26-2023 MCHC (RBC) [Mass/Vol] 33.5 g/dL 32-36 [facility] Nitrite Test strip Ql (U)Ord ered By: Florinda Martinez on 05-26-2023 Nitrite Ql (U) Negative Negative [facility] No Panel InformationOrdered By: Florinda Martinez on 05-26-2023 Estimated GFR (MDRD) Amer 97 mL/min >60 [facility] Comment on above: GFR Calc Estimated GFR (MDRD) Non-Af Amer 80 mL/min >60 [facility] Comment on above: Non- GFR Calc Thyroid Stimulating Hormone (TSH) 1.23 uIU/mL 0.358-3.74 [facility] Vitamin D 25-Hydroxy 38.0 ng/mL [facility] Comment on above: Vitamin D 25(OH) Sta tus Range Deficiency <20 ng/mL (50nmol/L) Insufficiency 20 - 30 ng/mL (50 - 75 nmol/L) Sufficiency 30 - 100 ng/mL (75 - 250 nmol/L) Toxicity >100 ng/mL (>250 nmol/L) Platelets bldOrdered By: Lesvia Martinez on 05-26-2023 Platelets (Bld) [#/Vol] 188 10*3/uL 150-450 [facility] Protein Test strip Ql (U)Ord ered By: Florinda Martinez on 05-26-2023 Protein Ql (U) Negative Negative [facility] Serum or plasma C reactive p rotein measurement (mass/volume)Ordered By: Florinda Martinez on 05-26-2023 CRP [Mass/Vol] mg/L 0.0-3.0 [facility] Comment on above: C-Reactive Protein ( CRP) provides useful information for thediagnosis, therapy and monitoring of inflammatory processesand associated diseases. For the evaluation of Relative Riskfor Cardiovascular Disease, a High Sensitivity CRP (HSCRP)should be ordered. Serum or plasma albumin valentina urement (mass/volume)Ordered By: Florinda Martinez on 05-26-2023 Albumin [Mass/Vol] 3.8 g/dL 3.2-5.0 [facility] Serum or plasma albumin/glob ulin mass ratioOrdered By: Florinda Martinez on 05-26-2023 Albumin/Globulin [Mass ratio] 1.1 {ratio} 0.9-2.4 [facility] Serum or plasma calcium valentina urement (mass/volume)Ordered By: Florinda Martinez on 05-26-2023 Calcium [Mass/Vol] 8.7 mg/dL 8.5-10.1 [facility] Serum or plasma creatinine m easurement (mass/volume)Ordered By: Florinda Martinez on 05-26-2023 Creatinine [Mass/Vol] 0.81 mg/dL 0.55-1.02 [facility] Comment on above: The validity of the calculated GFR & GFRAA in patients over 70 years has not been determined. Clinical correlation is essential. Serum or plasma urea nitroge n measurement (mass/volume)Ordered By: Florinda Martinez on 05-26-2023 Urea nitrogen [Mass/Vol] 11 mg/dL 7-18 [facility] Thin prep Papanicolaou smear with manual screeningOrdered By: Florinda Martinez on 05-26-2023 Thin prep Papanicolaou smear with manual screening 15 U/L 15-37 [facility] Thin prep Papanicolaou smear with manual screening 4 5-15 [facility] Urine blood detectionOrdered By: Florinda Martinez on 05-26-2023 RBC Ql (U) Negative Negative [facility] Urine clarityOrdered By: Lesvia Martinez on 05-26-2023 Clarity (U) Clear Clear [facility] Urine color determinationOrd ered By: Florinda Martinez on 05-26-2023 Color (U) Yellow Yellow [facility] Urine glucose detectionOrder ed By: Florinda Martinez on 05-26-2023 Glucose Ql (U) Normal mg/dl Normal [facility] Urine leukocyte esterase det ection by dipstickOrdered By: Florinda Martinez on 05-26-2023 Leukocyte esterase Test strip Ql (U) Negative Negative [facility] Urine pHOrdered By: Florinda bro on 05-26-2023 pH (U) 7.0 [pH] 5.0 - 8.0 [facility] Urine specific gravity measu rementOrdered By: Florinda Martinez on 05-26-2023 Specific gravity (U) [Rel density] 1.010 1.002-1.030 [facility] Urobilinogen Auto test strip Ql (U)Ordered By: Florinda Martinez on 05-26-2023 Urobilinogen Ql (U) Normal mg/dl Normal [facility] CNCOon 05-23-2023 CNCO Letter Text Normal [facility] CNOVon 05-23-2023 CNOV Office Visit (RHEUMN ) SHEEBA ROSE ([id number]) 1975 F Date Time Provider Department 05/23/23 9:00 AM FLORINDA MARTINEZ During your visit today, we recorded the following information about you: Pulse Blood pressure Weight Height 67/minute 130/75 74.4 kg 1.676 m Florinda Martinez MD 05/24/2023 8:16 PM Signed Referred by: Lesli Burnham DO [facility] Deann Chappell [facility] [id number] PCP: [place] [address] My final recommendations will be communicated back to the requesting physician by way of shared medical record or letter to the requesting physician by [place] mail. 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 Chief Complaint: Ms. Sheeba Rose presents today for evaluation of possible ankylosing spondylitis, in the setting of positive HLA-B27 and history of iritis. History of Present Illness: 05/22/2023 She has seen me in the past (06/01/2019, ~about 4 years ago), when there was no clinical suspicion of an autoimmune rheumatologic disease. She is now presenting with the chief complaint of bilateral paravertebral pain (costovertebral joints?) over the thoracic spine, which is worse when she wakes up and after taking deep breaths. She is able to sleep propped up on her couch. She had a spinal radiographs, which showed obvious abnormality/diagnosis . She is here today with concerns of possible ankylosing spondylitis in the setting of her past history of several episodes of iritis and positive HLA-B27. She denies pain in her sternum and low back (over sacroiliac joints or lumbar spine). She says that activity and deep breathing relieves the pain. She denies any pain in her cervical spine. She reports sitting at a desk frequently at her job with a poor posture. She reports taking NSAIDs before going to bed at night to relieve her pain. She notes having iritis twice in her left eye in the past two years. She denies any history of psoriasis of skin or nails, or inflammatory bowel disease. She has no history of plantar fascitis, Achilles tendinitis, dactylitis, or other enthesopathies. She reports morning stiffness that lasts about 20 minutes. She rates her thoracic back pain at an 8/10, when it is at its worst. She reports some movements aggravates her back pain. She reports a history of chronic low back pain, which has been attributed to bulging disks in the lumbar spine.. She denies any limitation of range of motion of her lumbar spine or neck. However, there is some limitation of range of motion during lateral rotation and lateral flexion. She complains of intermittent muscle weakness. She exercises regularly and does yard work frequently. She says that she is not as strong as she used to be which she attributes to getting older. In the past, before she saw me, she was diagnosed with mixed connective tissue disease and was on hydroxychloroquine. When I last saw her, there was no evidence of mixed connective tissue disease and I advised her to discontinue hydroxychloroquine. After that, she discontinued hydroxychloroquine without having any exacerbation of symptoms. She denies any family history of ankylosing spondylitis, psoriasis, or inflammatory bowel disease. She is vaccinated against COVID-19 and influenza. She is not vaccinated against pneumonia or shingles. 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 - stable MRA findings. Discussed risk management and warning symptoms. Plan for repeat MRA brain in 2 years for surveillance due to low risk profile and small anterior circulation aneurysm. The following portions of the patient's history were reviewed, confirmed, updated as necessary: allergies, current medications, past family history, past medical history, past social history, past surgical history, problem list, HPI and ROS obtained by others. Some elements may have been copied from a previous note and have been updated/reviewed where appropriate. All portions reflect current medical decision making from today. The clinical and radiographic findings as well as the risks, benefits, and alternatives of treatment have been reviewed in detail with the patients. Advised to call the office if symptoms worsen or new symptoms develop. Patient expressed understanding and is in agreement with plan. Jose Wilkes MD Rheumatology 06/01/2019 Assessment: Abnormal labs Muscle weakness H/o of brain aneurysm My CLINICAL suspicion for an autoimmune rheumatologic disease is low. There is no definite CLINICAL evidence of an underlying autoimmune rheumatologic disorder including rheuma (more content not included)... Normal [facility] XR CERVICAL 4V AP/LAT/OBLon 05-23-2023 XR CERVICAL 4V AP/LAT/OBL * * *Final Report* * * DATE OF EXAM: May 23 2023 10:13AM AOX 5311 - XR CERVICAL 4V AP/LAT/OBL / PROCEDURE REASON: multiple diagnoses * * * * Physician Interpretation * * * * EXAMINATION / TECHNIQUE: XR THORACIC 3V AP/LAT/SWIMMERS, XR LUMBAR 3V AP/LAT/L5-S1, XR SI JTS 2V AP PELV/BAH, XR CERVICAL 4V AP/LAT/OBL CLINICAL INFORMATION ( PROVIDED BY ORDERING CLINICIAN) : Chronic bilateral thoracic back pain Chronic bilateral thoracic back pain COMPARISON: RESULT: Cervical spine: Normal cervical lordosis. No significant curvature. No significant spondylolisthesis. C1-C2 relationship is preserved. Vertebral body heights are preserved. No acute fracture is identified. Mild degenerative disc disease at C5-C6 with disc height loss, degenerative endplate changes, and osteophytes. No erosions. Thoracolumbar spine: Counting reference: Lumbosacral junction. For the purposes of this report, L4-5 is considered the level of the iliac crest and assume there are 5 lumbar-type vertebrae. Anatomic variant: Diminutive T12 ribs. Normal lumbar lordosis and thoracic kyphosis. No significant curvature. No significant spondylolisthesis. Vertebral body heights are preserved. No acute fracture is identified. Mild disc height loss at L5-S1. Minimal degenerative endplate changes elsewhere throughout the thoracolumbar spine. Minimal lower lumbar facet arthropathy. No erosions. Sacroiliac joints: No erosions. No ankylosis. There is no acute fracture or dislocation. The sacroiliac joint spaces are preserved. There is no malalignment. Mild degenerative changes at pubic symphysis. IMPRESSION: No radiographic evidence for inflammatory arthritis. Mild/minimal scattered degenerative changes in the spine, as described. Examination Proctor: TEDDY Transcribe Date/Time: May 23 2023 12:35P Dictated by : ALICE SCHULTZ MD This examination was interpreted and the report reviewed and electronically signed by: ALICE SCHULTZ MD on May 23 2023 2:56PM EST [id number] Normal [facility] XR LUMBAR 3V AP/LAT/L5-S1on 05-23-2023 XR LUMBAR 3V AP/LAT/L5-S1 * * *Final Report* * * DATE OF EXAM: May 23 2023 10:13AM AOX 5228 - XR LUMBAR 3V AP/LAT/L5-S1 / PROCEDURE REASON: multiple diagnoses * * * * Physician Interpretation * * * * EXAMINATION / TECHNIQUE: XR THORACIC 3V AP/LAT/SWIMMERS, XR LUMBAR 3V AP/LAT/L5-S1, XR SI JTS 2V AP PELV/BAH, XR CERVICAL 4V AP/LAT/OBL CLINICAL INFORMATION ( PROVIDED BY ORDERING CLINICIAN) : Chronic bilateral thoracic back pain Chronic bilateral thoracic back pain COMPARISON: RESULT: Cervical spine: Normal cervical lordosis. No significant curvature. No significant spondylolisthesis. C1-C2 relationship is preserved. Vertebral body heights are preserved. No acute fracture is identified. Mild degenerative disc disease at C5-C6 with disc height loss, degenerative endplate changes, and osteophytes. No erosions. Thoracolumbar spine: Counting reference: Lumbosacral junction. For the purposes of this report, L4-5 is considered the level of the iliac crest and assume there are 5 lumbar-type vertebrae. Anatomic variant: Diminutive T12 ribs. Normal lumbar lordosis and thoracic kyphosis. No significant curvature. No significant spondylolisthesis. Vertebral body heights are preserved. No acute fracture is identified. Mild disc height loss at L5-S1. Minimal degenerative endplate changes elsewhere throughout the thoracolumbar spine. Minimal lower lumbar facet arthropathy. No erosions. Sacroiliac joints: No erosions. No ankylosis. There is no acute fracture or dislocation. The sacroiliac joint spaces are preserved. There is no malalignment. Mild degenerative changes at pubic symphysis. IMPRESSION: No radiographic evidence for inflammatory arthritis. Mild/minimal scattered degenerative changes in the spine, as described. Examination Proctor: TEDDY Transcribe Date/Time: May 23 2023 12:35P Dictated by : ALICE SCHULTZ MD This examination was interpreted and the report reviewed and electronically signed by: ALICE SCHULTZ MD on May 23 2023 2:56PM EST [id number] Normal [facility] XR SI JTS 2V AP PELV/FERGUSO Non 05-23-2023 XR SI JTS 2V AP PELV/BAH * * *Final Report* * * DATE OF EXAM: May 23 2023 10:13AM AOX 5245 - XR SI JTS 2V AP PELV/BAH / PROCEDURE REASON: multiple diagnoses * * * * Physician Interpretation * * * * EXAMINATION / TECHNIQUE: XR THORACIC 3V AP/LAT/SWIMMERS, XR LUMBAR 3V AP/LAT/L5-S1, XR SI JTS 2V AP PELV/BAH, XR CERVICAL 4V AP/LAT/OBL CLINICAL INFORMATION ( PROVIDED BY ORDERING CLINICIAN) : Chronic bilateral thoracic back pain Chronic bilateral thoracic back pain COMPARISON: RESULT: Cervical spine: Normal cervical lordosis. No significant curvature. No significant spondylolisthesis. C1-C2 relationship is preserved. Vertebral body heights are preserved. No acute fracture is identified. Mild degenerative disc disease at C5-C6 with disc height loss, degenerative endplate changes, and osteophytes. No erosions. Thoracolumbar spine: Counting reference: Lumbosacral junction. For the purposes of this report, L4-5 is considered the level of the iliac crest and assume there are 5 lumbar-type vertebrae. Anatomic variant: Diminutive T12 ribs. Normal lumbar lordosis and thoracic kyphosis. No significant curvature. No significant spondylolisthesis. Vertebral body heights are preserved. No acute fracture is identified. Mild disc height loss at L5-S1. Minimal degenerative endplate changes elsewhere throughout the thoracolumbar spine. Minimal lower lumbar facet arthropathy. No erosions. Sacroiliac joints: No erosions. No ankylosis. There is no acute fracture or dislocation. The sacroiliac joint spaces are preserved. There is no malalignment. Mild degenerative changes at pubic symphysis. IMPRESSION: No radiographic evidence for inflammatory arthritis. Mild/minimal scattered degenerative changes in the spine, as described. Examination Proctor: TEDDY Transcribe Date/Time: May 23 2023 12:35P Dictated by : ALICE SCHULTZ MD This examination was interpreted and the report reviewed and electronically signed by: ALICE SCHULTZ MD on May 23 2023 2:56PM EST [id number] Normal [facility] XR THORACIC 3V AP/LAT/SWIMME RSon 05-23-2023 XR THORACIC 3V AP/LAT/SWIMMERS * * *Final Report* * * DATE OF EXAM: May 23 2023 10:13AM AOX 5261 - XR THORACIC 3V AP/LAT/SWIMMERS / PROCEDURE REASON: multiple diagnoses * * * * Physician Interpretation * * * * EXAMINATION / TECHNIQUE: XR THORACIC 3V AP/LAT/SWIMMERS, XR LUMBAR 3V AP/LAT/L5-S1, XR SI JTS 2V AP PELV/BAH, XR CERVICAL 4V AP/LAT/OBL CLINICAL INFORMATION ( PROVIDED BY ORDERING CLINICIAN) : Chronic bilateral thoracic back pain Chronic bilateral thoracic back pain COMPARISON: RESULT: Cervical spine: Normal cervical lordosis. No significant curvature. No significant spondylolisthesis. C1-C2 relationship is preserved. Vertebral body heights are preserved. No acute fracture is identified. Mild degenerative disc disease at C5-C6 with disc height loss, degenerative endplate changes, and osteophytes. No erosions. Thoracolumbar spine: Counting reference: Lumbosacral junction. For the purposes of this report, L4-5 is considered the level of the iliac crest and assume there are 5 lumbar-type vertebrae. Anatomic variant: Diminutive T12 ribs. Normal lumbar lordosis and thoracic kyphosis. No significant curvature. No significant spondylolisthesis. Vertebral body heights are preserved. No acute fracture is identified. Mild disc height loss at L5-S1. Minimal degenerative endplate changes elsewhere throughout the thoracolumbar spine. Minimal lower lumbar facet arthropathy. No erosions. Sacroiliac joints: No erosions. No ankylosis. There is no acute fracture or dislocation. The sacroiliac joint spaces are preserved. There is no malalignment. Mild degenerative changes at pubic symphysis. IMPRESSION: No radiographic evidence for inflammatory arthritis. Mild/minimal scattered degenerative changes in the spine, as described. Examination Proctor: TEDDY Transcribe Date/Time: May 23 2023 12:35P Dictated by : ALICE SCHULTZ MD This examination was interpreted and the report reviewed and electronically signed by: ALICE SCHULTZ MD on May 23 2023 2:56PM EST [id number] Normal [facility] Absolute lymphocyte countOrd ered By: HEALTH ASSESSMENT on 04-09-2023 Lymphocytes Auto (Unsp spec) [#/Vol] 1.63 10*3/uL 0.83-4.51 [facility] Absolute reticulocyte countO rdered By: HEALTH ASSESSMENT on 04-09-2023 Reticulocytes (Bld) [#/Vol] 0.00 10*3/uL 0-5 [facility] Basophil percentageOrdered B y: HEALTH ASSESSMENT on 04-09-2023 Basophil percentage 3.0 mg/dL 2.5-4.9 [facility] Bilirubin [Mass/Vol] 0.60 mg/dL 0.20-1.00 [facility] Comment on above: For patients on eltr ombopag therapy, use of Dimension [place] TBIL is not recommended. Chloride [Moles/Vol] 104 mmol/L 98-107 [facility] Cholesterol [Mass/Vol] 186 mg/dL <200 [facility] Comment on above: <200 mg/dL Desirable 200-240 mg/dL Borderline >240 mg/dL High Risk Glucose [Mass/Vol] 90 mg/dL 74-106 [facility] LDH [Catalytic activity/Vol] 168 U/L 84-246 [facility] Neutrophils (Bld) [#/Vol] 4.4 10*3/uL 2.0-7.7 [facility] Potassium [Moles/Vol] 3.9 mmol/L 3.5-5.1 [facility] Protein [Mass/Vol] 7.4 g/dL 6.4-8.2 [facility] Sodium [Moles/Vol] 134 mmol/L 136-145 [facility] Triglyceride [Mass/Vol] 109 mg/dL <199 [facility] Comment on above: The drugs N-Acetylcy steine and Metamizole may falsely depress this assay.Serum Triglycerides Reference Interval Normal <150 mg/dL Borderline high 150 - 199 mg/dL High 200 - 499 mg/dL Very High > or = 500 mg/dL WBC (Bld) [#/Vol] 6.6 10*3/uL 4.4-11.0 [facility] Bilirubin Test strip Ql (U)O rdered By: HEALTH ASSESSMENT on 04-09-2023 Bilirubin Ql (U) Negative Negative [facility] Blood erythrocytes count (nu mber/volume)Ordered By: HEALTH ASSESSMENT on 04-09-2023 RBC (Bld) [#/Vol] 4.46 10*6/uL 4.2-5.4 [facility] Blood hemoglobin measurement (mass/volume)Ordered By: HEALTH ASSESSMENT on 04-09-2023 Hemoglobin (Bld) [Mass/Vol] 14.3 g/dL 12.0-15.0 [facility] Blood platelet mean volumeOr dered By: HEALTH ASSESSMENT on 04-09-2023 Platelet mean volume (Bld) [Entitic vol] 11.0 fL 6.2-12.0 [facility] Determination of erythrocyte mean corpuscular volume (MCV)Ordered By: HEALTH ASSESSMENT on 04-09-2023 MCV (RBC) [Entitic vol] 93.9 fL 81-99 [facility] Direct bilirubinOrdered By: HEALTH ASSESSMENT on 04-09-2023 Bilirubin.direct [Mass/Vol] 0.17 mg/dL 0.00-0.30 [facility] Hematocrit Auto (Bld) [Volum e fraction]Ordered By: HEALTH ASSESSMENT on 04-09-2023 Hematocrit (Bld) [Volume fraction] 41.9 % 37-47 [facility] Ketones Test strip Ql (U)Ord ered By: HEALTH ASSESSMENT on 04-09-2023 Ketones Ql (U) Negative Negative [facility] Laboratory - Chemistry and C hemistry - challengeOrdered By: HEALTH ASSESSMENT on 04-09-2023 ALP [Catalytic activity/Vol] 51 U/L 45-117 [facility] ALT [Catalytic activity/Vol] 21 U/L 13-56 [facility] Cholesterol.total/Zaida sterol in HDL [Mass ratio] 3.30 {ratio} [facility] CO2 [Moles/Vol] 24.0 mmol/L 21.0-32.0 [facility] Globulin (S) [Mass/Vol] 3.6 g/dL 2.2-4.2 [facility] Urea nitrogen/Creatinine [Mass ratio] 17.2 mg/mg 10-20 [facility] Laboratory - Hematology and Cell countsOrdered By: HEALTH ASSESSMENT on 04-09-2023 Erythrocyte distribution width (RBC) [Entitic vol] 40.4 fL 35.1-43.9 [facility] Erythrocyte distribution width (RBC) [Ratio] 11.8 % 11.6-14.6 [facility] MCH (RBC) [Entitic mass] 32.1 pg 27.0-32.0 [facility] Nucleated RBC/100 WBC (Bld) [Ratio] 0 % 0-5 [facility] MCHC Auto (RBC) [Mass/Vol]Or dered By: HEALTH ASSESSMENT on 04-09-2023 MCHC (RBC) [Mass/Vol] 34.1 g/dL 32-36 [facility] Nitrite Test strip Ql (U)Ord ered By: HEALTH ASSESSMENT on 04-09-2023 Nitrite Ql (U) Negative Negative [facility] No Panel InformationOrdered By: HEALTH ASSESSMENT on 04-09-2023 Estimated GFR (MDRD) Amer 83 mL/min >60 [facility] Comment on above: GFR Calc Estimated GFR (MDRD) Non-Af Amer 68 mL/min >60 [facility] Comment on above: Non- GFR Calc Platelets bldOrdered By: DAVID [place] ASSESSMENT on 04-09-2023 Platelets (Bld) [#/Vol] 188 10*3/uL 150-450 [facility] Protein Test strip Ql (U)Ord ered By: HEALTH ASSESSMENT on 04-09-2023 Protein Ql (U) Negative Negative [facility] Segmented neutrophils/100 WB C Auto (Bld)Ordered By: HEALTH ASSESSMENT on 04-09-2023 Segmented neutrophils/100 WBC (Bld) 66.5 % 47-70 [facility] Serum or plasma albumin valent[place] urement (mass/volume)Ordered By: HEALTH ASSESSMENT on 04-09-2023 Albumin [Mass/Vol] 3.8 g/dL 3.2-5.0 [facility] Serum or plasma albumin/glob ulin mass ratioOrdered By: HEALTH ASSESSMENT on 04-09-2023 Albumin/Globulin [Mass ratio] 1.1 {ratio} 0.9-2.4 [facility] Serum or plasma calcium valentina urement (mass/volume)Ordered By: HEALTH ASSESSMENT on 04-09-2023 Calcium [Mass/Vol] 9.0 mg/dL 8.5-10.1 [facility] Serum or plasma cholesterol in HDL measurement (mass/volume)Ordered By: HEALTH ASSESSMENT on 04-09-2023 Cholesterol in HDL [Mass/Vol] 57 mg/dL >40 [facility] Comment on above: The drugs N-Acetylcy steine and Metamizole may falsely depress this assay. Reference Range HDL <40 mg/dL Low HDL Cholesterol HDL >or= 60 mg/dL High HDL Cholesterol Serum or plasma cholesterol in VLDL measurement (mass/volume)Ordered By: HEALTH ASSESSMENT on 04-09-2023 Cholesterol in VLDL [Mass/Vol] 22 mg/dL 5-40 [facility] Serum or plasma creatinine m easurement (mass/volume)Ordered By: HEALTH ASSESSMENT on 04-09-2023 Creatinine [Mass/Vol] 0.93 mg/dL 0.55-1.02 [facility] Comment on above: The validity of the calculated GFR & GFRAA in patients over 70 years has not been determined. Clinical correlation is essential. Serum or plasma low density lipoprotein (LDL) cholesterol measurement (mass/volume)Ordered By: HEALTH ASSESSMENT on 04-09-2023 Cholesterol in LDL [Mass/Vol] 107 mg/dL 0-130 [facility] Serum or plasma urea nitroge n measurement (mass/volume)Ordered By: HEALTH ASSESSMENT on 04-09-2023 Urea nitrogen [Mass/Vol] 16 mg/dL 7-18 [facility] Serum or plasma uric acid me asurement (mass/volume)Ordered By: HEALTH ASSESSMENT on 04-09-2023 Urate [Mass/Vol] 5.2 mg/dL 2.6-6.0 [facility] Comment on above: The drugs N-Acetylcy steine and Metamizole may falsely depress this assay. Thin prep Papanicolaou smear with manual screeningOrdered By: HEALTH ASSESSMENT on 04-09-2023 Thin prep Papanicolaou smear with manual screening 14 U/L 15-37 [facility] Thin prep Papanicolaou smear with manual screening 6 5-15 [facility] Urine blood detectionOrdered By: HEALTH ASSESSMENT on 04-09-2023 RBC Ql (U) Negative Negative [facility] Urine clarityOrdered By: DAVID LTH ASSESSMENT on 04-09-2023 Clarity (U) Clear Clear [facility] Urine color determinationOrd ered By: HEALTH ASSESSMENT on 04-09-2023 Color (U) Yellow Yellow [facility] Urine glucose detectionOrder ed By: HEALTH ASSESSMENT on 04-09-2023 Glucose Ql (U) Normal mg/dl Normal [facility] Urine leukocyte esterase det ection by dipstickOrdered By: HEALTH ASSESSMENT on 04-09-2023 Leukocyte esterase Test strip Ql (U) Negative Negative [facility] Urine pHOrdered By: HEALTH A SSESSMENT on 04-09-2023 pH (U) 7.0 [pH] 5.0 - 8.0 [facility] Urine specific gravity measu rementOrdered By: HEALTH ASSESSMENT on 04-09-2023 Specific gravity (U) [Rel density] 1.005 1.002-1.030 [facility] Urobilinogen Auto test strip Ql (U)Ordered By: HEALTH ASSESSMENT on 04-09-2023 Urobilinogen Ql (U) Normal mg/dl Normal [facility] CNCOon 05-06-2022 CNCO Letter Text Normal [facility] CNOVon 05-06-2022 CNOV Office Visit (NEAGCLM) SHEEBA ROSE ([id number]) 1975 F Date Time Provider Department 05/06/22 1:30 PM JOSE WILKES NEAMBERLY During your visit today, we recorded the following information about you: Temperature Pulse Blood pressure Weight 97.6 degrees 64/minute 115/76 73 kg Height 1.702 m Jose Wilkes MD 05/06/2022 2:15 PM Signed NEUROSURGERY CONSULT NOTE Jose Wilkes MD Date of visit: May 06, 2022 Patient Name: Ms.Michelle Rivera [place] Date of : 1975 Current Age: [age] year old Sex: female MRN/E# [id number] Last Office Visit: Visit date not found Chief Complaint: Patient presents with: New Patient HISTORY OF PRESENT ILLNESS : Sheeba Rose is a 47 year old, female who is Malys for neurosurgical evaluation. She has a history of arthritis and aneurysm. She denies smoking. 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 She was subsequently seen by Dr. Miranda and Dr. Garnett for this. Her last MRA was in [address] Chance said to follow up in 2 years. She has never had an angiogram or any interventions for this finding. Today she presents with new MRA imaging to establish care for R ICA aneurysm. She has been doing well. No new issues or neurological symptoms. She is here for evaluation and plan of care. Symptoms: none PREVIOUS CONSERVATIVE TREATMENTS: None PREVIOUS SURGERY: None PAIN EVALUATION 05/06/2022 1322 Pain Level: 0 PAST MEDICAL HISTORY Diagnosis Date Aneurysm (HCC) Arthritis PAST SURGICAL HISTORY Procedure Laterality Date PAST SURGICAL HISTORY OF x2 PAST SURGICAL HISTORY OF lasik vision correction FAMILY HISTORY Problem Relation Age of Onset Hypertension Father Cancer Father ALLERGIES No Known Allergies Current Outpatient Medications Medication Sig Dispense Refill MULTI-VITAMIN ORAL Take by mouth. Vit B Cmplx 3-FA-Vit C-Biotin tablet Take 1 tablet by mouth daily with breakfast. ergocalciferol 50,000 unit capsule (VITAMIN D2, DRISDOL) Take 50,000 Units by mouth once every month. hydrOXYchloroQUINE (PLAQUENIL) 200 mg tablet Take by mouth once daily. (Patient not taking: Reported on 05/06/2022) No current facility-administered medications for this visit. REVIEW OF SYSTEMS Review of Systems Constitutional: Negative for chills, fatigue and fever. HENT: Negative for congestion, drooling and tinnitus. Eyes: Negative for photophobia, redness and visual disturbance. Respiratory: Negative for cough, shortness of breath and wheezing. Cardiovascular: Negative for chest pain, palpitations and leg swelling. Gastrointestinal: Negative for constipation, diarrhea, nausea and vomiting. Endocrine: Negative for cold intolerance and heat intolerance. Genitourinary: Negative for difficulty urinating, dysuria, frequency and urgency. Musculoskeletal: Negative for back pain, gait problem and neck pain. Skin: Negative for rash and wound. Allergic/Immunologic: Negative for environmental allergies and food allergies. Neurological: Negative for dizziness, tremors, light-headedness and numbness. Hematological: Negative for adenopathy. Does not bruise/bleed easily. Psychiatric/Behaviora l: Negative for agitation and confusion. The patient is not nervous/anxious. OBJECTIVE: BP 115/76 Pulse 64 Temp (Src) 97.6 (Temporal) Ht 5' 7 (1.70m) Wt 160 lb 15 oz (73.0kg) SpO2 98% BMI 25.20 kg/(m2). 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 - stable MRA findings. Discussed risk management and warning symptoms. Plan for repeat MRA brain in 2 years for surveillance due to low risk profile and small anterior circulation aneurysm. The following portions of the patient's history were reviewed, confirmed, updated as necessary: allergies, current medications, past family history, past medical history, past social history, past surgical history, problem list, HPI and ROS obtained by others. Some elements may have been copied from a previous note and have been updated/reviewed where appropriate. All portions reflect current medical decision making from today. The clinical and radiographic findings as well as the risks, benefits, and alternatives of treatment have been reviewed in detail with the patients. Advised to call the office if symptoms worsen or new symptoms develop. Patient expressed understanding and is in agreement with plan. Jose Wilkes MD Referring Provider: LESLI BURNHAM [[id number]] Allergies As of Date: 05/06/2022 (No Known Allergies) Date Reviewed: 05/06/2022 Reviewed by: Cora Kingsley Ma - Fully Assessed Reason for Visit: New Patient [172] Primary Visit Diagnosis:Nonruptured cerebral (more content not included)... Normal [facility] Absolute lymphocyte counton 03-15-2022 Lymphocytes Auto (Unsp spec) [#/Vol] 1.50 10*3/uL 0.83-4.51 [facility] Work Phone: Absolute reticulocyte counto n 03-15-2022 Reticulocytes (Bld) [#/Vol] 0.00 10*3/uL 0-5 [facility] Work Phone: Basophil percentageon 2021 Basophil percentage 3.3 mg/dL 2.5-4.9 [facility] Work Phone: Bilirubin [Mass/Vol] 0.50 mg/dL 0.20-1.00 [facility] Work Phone: Comment on above: For patients on eltr ombopag therapy, use of Dimension [place] TBIL is not recommended. Chloride [Moles/Vol] 106 mmol/L 98-107 [facility] Work Phone: Cholesterol [Mass/Vol] 154 mg/dL <200 [facility] Work Phone: Comment on above: <200 mg/dL Desirable 200-240 mg/dL Borderline >240 mg/dL High Risk Glucose [Mass/Vol] 95 mg/dL 74-106 [facility] Work Phone: Neutrophils (Bld) [#/Vol] 2.5 10*3/uL 2.0-7.7 [facility] Work Phone: [phone] Potassium [Moles/Vol] 4.1 mmol/L 3.5-5.1 [facility] Work Phone: Protein [Mass/Vol] 6.8 g/dL 6.4-8.2 [facility] Work Phone: Sodium [Moles/Vol] 138 mmol/L 136-145 [facility] Work Phone: Triglyceride [Mass/Vol] 89 mg/dL <199 [facility] Work Phone: Comment on above: The drugs N-Acetylcy steine and Metamizole may falsely depress this assay.Serum Triglycerides Reference Interval Normal <150 mg/dL Borderline high 150 - 199 mg/dL High 200 - 499 mg/dL Very High > or = 500 mg/dL WBC (Bld) [#/Vol] 4.6 10*3/uL 4.4-11.0 [facility] Work Phone: Bilirubin Test strip Ql (U)o n 03-15-2022 Bilirubin Ql (U) Negative Negative [facility] Work Phone: Blood erythrocytes count (nu mber/volume)on 03-15-2022 RBC (Bld) [#/Vol] 4.40 10*6/uL 4.2-5.4 [facility] Work Phone: Blood hemoglobin measurement (mass/volume)on 03-15-2022 Hemoglobin (Bld) [Mass/Vol] 14.0 g/dL 12.0-15.0 [facility] Work Phone: [phone] Blood platelet mean volumeon 03-15-2022 Platelet mean volume (Bld) [Entitic vol] 11.4 fL 6.2-12.0 [facility] Work Phone: Determination of erythrocyte mean corpuscular volume (MCV)on 03-15-2022 MCV (RBC) [Entitic vol] 93.9 fL 81-99 [facility] Work Phone: Direct bilirubinon Bilirubin.direct [Mass/Vol] 0.12 mg/dL 0.00-0.30 [facility] Work Phone: [phone] Hematocrit Auto (Bld) [Volum e fraction]on 03-15-2022 Hematocrit (Bld) [Volume fraction] 41.3 % 37-47 [facility] Work Phone: [phone] Ketones Test strip Ql (U)on 03-15-2022 Ketones Ql (U) Negative Negative [facility] Work Phone: [phone] Laboratory - Chemistry and C hemistry - challengeon 03-15-2022 ALP [Catalytic activity/Vol] 44 U/L 45-117 [facility] Work Phone: [phone] ALT [Catalytic activity/Vol] 24 U/L 13-56 [facility] Work Phone: [phone] Cholesterol.total/Zaida sterol in HDL [Mass ratio] 3.40 {ratio} [facility] Work Phone: [phone] CO2 [Moles/Vol] 28.0 mmol/L 21.0-32.0 [facility] Work Phone: Globulin (S) [Mass/Vol] 3.1 g/dL 2.2-4.2 [facility] Work Phone: Urea nitrogen/Creatinine [Mass ratio] 17.4 mg/mg 10-20 [facility] Work Phone: Laboratory - Hematology and Cell countson 03-15-2022 Erythrocyte distribution width (RBC) [Entitic vol] 40.2 fL 35.1-43.9 [facility] Work Phone: Erythrocyte distribution width (RBC) [Ratio] 11.6 % 11.6-14.6 [facility] Work Phone: MCH (RBC) [Entitic mass] 31.8 pg 27.0-32.0 [facility] Work Phone: Nucleated RBC/100 WBC (Bld) [Ratio] 0 % 0-5 [facility] Work Phone: MCHC Auto (RBC) [Mass/Vol]on 03-15-2022 MCHC (RBC) [Mass/Vol] 33.9 g/dL 32-36 [facility] Work Phone: Nitrite Test strip Ql (U)on 03-15-2022 Nitrite Ql (U) Negative Negative [facility] Work Phone: No Panel Informationon 03-15 Estimated GFR (MDRD) Amer 91 mL/min >60 [facility] Work Phone: Comment on above: GFR Calc Estimated GFR (MDRD) Non-Af Amer 75 mL/min >60 [facility] Work Phone: Comment on above: Non- GFR Calc Platelets bldon 03-15-2022 Platelets (Bld) [#/Vol] 167 10*3/uL 150-450 [facility] Work Phone: Protein Test strip Ql (U)on 03-15-2022 Protein Ql (U) Negative Negative [facility] Work Phone: Segmented neutrophils/100 WB C Auto (Bld)on 03-15-2022 Segmented neutrophils/100 WBC (Bld) 55.6 % 47-70 [facility] Work Phone: Serum or plasma albumin valentina urement (mass/volume)on 03-15-2022 Albumin [Mass/Vol] 3.7 g/dL 3.2-5.0 [facility] Work Phone: Serum or plasma albumin/glob ulin mass ratioon 03-15-2022 Albumin/Globulin [Mass ratio] 1.2 {ratio} 0.9-2.4 [facility] Work Phone: Serum or plasma calcium valentina urement (mass/volume)on 03-15-2022 Calcium [Mass/Vol] 8.3 mg/dL 8.5-10.1 [facility] Work Phone: Serum or plasma cholesterol in HDL measurement (mass/volume)on 03-15-2022 Cholesterol in HDL [Mass/Vol] 45 mg/dL >40 [facility] Work Phone: Comment on above: The drugs N-Acetylcy steine and Metamizole may falsely depress this assay. Reference Range HDL <40 mg/dL Low HDL Cholesterol HDL >or= 60 mg/dL High HDL Cholesterol Serum or plasma cholesterol in VLDL measurement (mass/volume)on 03-15-2022 Cholesterol in VLDL [Mass/Vol] 18 mg/dL 5-40 [facility] Work Phone: Serum or plasma creatinine m easurement (mass/volume)on 03-15-2022 Creatinine [Mass/Vol] 0.86 mg/dL 0.55-1.02 [facility] Work Phone: Comment on above: The validity of the calculated GFR & GFRAA in patients over 70 years has not been determined. Clinical correlation is essential. Serum or plasma low density lipoprotein (LDL) cholesterol measurement (mass/volume)on 03-15-2022 Cholesterol in LDL [Mass/Vol] 91 mg/dL 0-130 [facility] Work Phone: Serum or plasma urea nitroge n measurement (mass/volume)on 03-15-2022 Urea nitrogen [Mass/Vol] 15 mg/dL 7-18 [facility] Work Phone: Serum or plasma uric acid me asurement (mass/volume)on 03-15-2022 Urate [Mass/Vol] 5.4 mg/dL 2.6-6.0 [facility] Work Phone: Comment on above: The drugs N-Acetylcy steine and Metamizole may falsely depress this assay. Thin prep Papanicolaou smear with manual screeningon 03-15-2022 Thin prep Papanicolaou smear with manual screening 10 U/L 15-37 [facility] Work Phone: Thin prep Papanicolaou smear with manual screening 4 5-15 [facility] Work Phone: Thin prep Papanicolaou smear with manual screening 148 U/L 84-246 [facility] Work Phone: Urine blood detectionon 03-04 RBC Ql (U) 150 /ul Negative [facility] Work Phone: Urine clarityon 03-15-2022 Clarity (U) Sl Cloudy Clear [facility] Work Phone: Urine color determinationon 03-15-2022 Color (U) Yellow Yellow [facility] Work Phone: Urine glucose detectionon Glucose Ql (U) Normal mg/dl Normal [facility] Work Phone: Urine leukocyte esterase det ection by dipstickon 03-15-2022 Leukocyte esterase Test strip Ql (U) 500 /ul Negative [facility] Work Phone: Urine pHon 03-15-2022 pH (U) 7.0 [pH] 5.0 - 8.0 [facility] Work Phone: Urine specific gravity measu rementon 03-15-2022 Specific gravity (U) [Rel density] 1.010 1.002-1.030 [facility] Work Phone: Urobilinogen Auto test strip Ql (U)on 03-15-2022 Urobilinogen Ql (U) Normal mg/dl Normal [facility] Work Phone: MR-MRA Head ONLY without Con trast IMPORTon 10-15-2019 MR-MRA Head ONLY without Contrast IMPORT Images were obtained outside of [facility] Normal [facility] Office Visit: [facility] wellness e xamon 04-25-2017 Fall risk assessment No Invalid Interpretation Code [facility] Work Phone: Protein mass conc Done Invalid Interpretation Code [facility] Work Phone: Protein mass conc T Invalid Interpretation Code [facility] Work Phone: Tobacco smoking status NHIS Never Invalid Interpretation Code [facility] Work Phone: Tobacco smoking status [facility] Never smoker Invalid Interpretation Code [facility] Work Phone: Lab Report: CBC, Employeeon 01-31-2016 Basophils/100 WBC (Bld) 0.2 % 0-1 [facility] Work Phone: Basophils/100 WBC Auto (Bld) 0.2 % Invalid Interpretation Code 0-1 [facility] Work Phone: Eosinophils/100 WBC (Bld) 1.0 % 0-5 [facility] Work Phone: Eosinophils/100 WBC Auto (Bld) 1.0 % Invalid Interpretation Code 0-5 [facility] Work Phone: Erythrocyte distribution width Auto Ratio (RBC) 12.1 % Invalid Interpretation Code 11.6-14.6 [facility] Work Phone: Erythrocyte distribution width Auto Ratio (RBC) 39.7 fL Invalid Interpretation Code 35.1-43.9 [facility] Work Phone: Erythrocyte distribution width Ratio (RBC) 12.1 % 11.6-14.6 [facility] Work Phone: Erythrocyte distribution width Ratio (RBC) 39.7 fL 35.1-43.9 [facility] Work Phone: Hematocrit Auto Volume Fraction (Bld) 40.8 % Invalid Interpretation Code 37-47 [facility] Work Phone: Hematocrit Volume Fraction (Bld) 40.8 % 37-47 [facility] Work Phone: [phone] Hemoglobin mass conc (Bld) 14.0 g/dL Invalid Interpretation Code 12.0-15.0 [facility] Work Phone: Lymphocytes #/vol (Bld) 1.40 X10 3/UL 0.83-4.51 [facility] Work Phone: [phone] Lymphocytes Auto #/vol (Bld) 1.40 X10 3/UL Invalid Interpretation Code 0.83-4.51 [facility] Work Phone: [phone] Lymphocytes/100 WBC (Bld) 24.1 % 19-41 [facility] Work Phone: [phone] Lymphocytes/100 WBC Auto (Bld) 24.1 % Invalid Interpretation Code 19-41 [facility] Work Phone: [phone] MCH Auto Entitic mass (RBC) 31.3 pg Invalid Interpretation Code 27.0-32.0 [facility] Work Phone: [phone] MCH Entitic mass (RBC) 31.3 pg 27.0-32.0 [facility] Work Phone: [phone] MCHC Auto mass conc (RBC) 34.3 G/GL Invalid Interpretation Code 32-36 [facility] Work Phone: [phone] MCHC mass conc (RBC) 34.3 G/GL 32-36 [facility] Work Phone: [phone] MCV Auto Entitic volume (RBC) 91.1 fL Invalid Interpretation Code 81-99 [facility] Work Phone: [phone] MCV Entitic volume (RBC) 91.1 fL 81-99 [facility] Work Phone: [phone] Monocytes/100 WBC (Bld) 7.9 % 0-10 [facility] Work Phone: [phone] Monocytes/100 WBC Auto (Bld) 7.9 % Invalid Interpretation Code 0-10 [facility] Work Phone: [phone] Neutrophils #/vol (Bld) 3.9 X10 3/UL 2.0-7.7 [facility] Work Phone: Neutrophils Auto #/vol (Bld) 3.9 X10 3/UL Invalid Interpretation Code 2.0-7.7 [facility] Work Phone: Neutrophils/100 WBC (Bld) 66.8 % 47-70 [facility] Work Phone: Neutrophils/100 WBC Auto (Bld) 66.8 % Invalid Interpretation Code 47-70 [facility] Work Phone: Platelet mean volume Entitic volume (Bld) 11.9 fL 6.2-12.0 [facility] Work Phone: Platelet mean volume Javier-Sonya Entitic volume (Bld) 11.9 fL Invalid Interpretation Code 6.2-12.0 [facility] Work Phone: Platelets #/vol (Bld) 151 10*3/mm3 150-450 [facility] Work Phone: Platelets Auto #/vol (Bld) 151 10*3/mm3 Invalid Interpretation Code 150-450 [facility] Work Phone: RBC #/vol (Bld) 4.48 10*6/uL 4.2-5.4 [facility] Work Phone: RBC Auto #/vol (Bld) 4.48 10*6/uL Invalid Interpretation Code 4.2-5.4 [facility] Work Phone: WBC #/vol (Bld) 5.8 10*3/uL 4.4-11.0 [facility] Work Phone: WBC Auto #/vol (Bld) 5.8 10*3/uL Invalid Interpretation Code 4.4-11.0 [facility] Work Phone: Lab Report: Employee Profile on 01-31-2016 Albumin mass conc 3.8 g/dL Invalid Interpretation Code 3.4-5.0 [facility] Work Phone: Albumin/Globulin mass ratio 1.1 {ratio} Invalid Interpretation Code 0.9-2.4 [facility] Work Phone: [phone] ALP enzyme act/vol (Bld) 43 U/L Low 50-136 [facility] Work Phone: [phone] ALT enzyme act/vol 17 U/L Invalid Interpretation Code 12-78 [facility] Work Phone: [phone] Anion gap 4 molar conc 10 Invalid Interpretation Code 5-15 [facility] Work Phone: [phone] Anion gap molar conc 10 mmol/L 5-15 [facility] Work Phone: [phone] AST enzyme act/vol 13 U/L Low 15-37 [facility] Work Phone: [phone] Bilirubin mass conc 0.60 mg/dL Invalid Interpretation Code 0.20-1.00 [facility] Work Phone: [phone] Bilirubin.direct mass conc 0.15 mg/dL Invalid Interpretation Code 0.00-0.30 [facility] Work Phone: [phone] Calcium mass conc 8.4 mg/dL Low 8.5-10.1 [facility] Work Phone: [phone] Chloride molar conc 106 mmol/L Invalid Interpretation Code 98-107 [facility] Work Phone: [phone] CHOL:HDL 2.60 Invalid Interpretation Code [facility] Work Phone: [phone] Cholesterol in HDL mass conc 56 mg/dL Invalid Interpretation Code [facility] Work Phone: [phone] Cholesterol in LDL mass conc 71 mg/dL Invalid Interpretation Code 0-130 [facility] Work Phone: [phone] Cholesterol mass conc 148 mg/dL Invalid Interpretation Code 200 [facility] Work Phone: [phone] CO2 ppres (BldV) 25.0 mmol/L Invalid Interpretation Code 21.0-32.0 [facility] Work Phone: [phone] Creatinine mass conc 0.93 mg/dL Invalid Interpretation Code 0.55-1.20 [facility] Work Phone: [phone] EST GFR - AA 86 mL/min Invalid Interpretation Code >60 [facility] Work Phone: [phone] GFR/1.73 sq M predicted among non-blacks MDRD vol rate/area (S/P/Bld) 71 mL/min/{1.73_m2} Invalid Interpretation Code >60 [facility] Work Phone: Globulin Calculated mass conc (S) 3.4 g/dL Invalid Interpretation Code 2.3-3.5 [facility] Work Phone: Globulin mass conc (S) 3.4 g/dL 2.3-3.5 [facility] Work Phone: Glucose mass conc 90 mg/dL Invalid Interpretation Code 70-110 [facility] Work Phone: LDH 146 U/L Invalid Interpretation Code 84-246 [facility] Work Phone: Lipoprotein.pre-beta mass conc 21 mg/dL Invalid Interpretation Code 5-40 [facility] Work Phone: PHOS 2.9 mg/dL Invalid Interpretation Code 2.5-4.9 [facility] Work Phone: Potassium molar conc 3.5 mmol/L Invalid Interpretation Code 3.5-5.1 [facility] Work Phone: Protein mass conc 7.2 g/dL Invalid Interpretation Code 6.4-8.2 [facility] Work Phone: Sodium molar conc 141 mmol/L Invalid Interpretation Code 136-145 [facility] Work Phone: Triglyceride mass conc 105 mg/dL Invalid Interpretation Code [facility] Work Phone: Urate mass conc 4.2 mg/dL Invalid Interpretation Code 2.6-6.0 [facility] Work Phone: Urea nitrogen mass conc 12 mg/dL Invalid Interpretation Code 7-18 [facility] Work Phone: Urea nitrogen/Creatinine mass ratio 12.9 RATIO Invalid Interpretation Code 10-20 [facility] Work Phone: Lab Report: UrinalysisYelena 01-31-2016 Albumin Ql (U) Negative Invalid Interpretation Code Negative [facility] Work Phone: Bilirubin Ql (U) Negative Invalid Interpretation Code Negative [facility] Work Phone: Clarity Nom (U) Clear Clear [facility] Work Phone: Color Nom (U) Yellow Invalid Interpretation Code Yellow [facility] Work Phone: Glucose Ql (U) Normal mg/dl Invalid Interpretation Code Normal [facility] Work Phone: Ketones mass conc (U) Negative Invalid Interpretation Code Negative [facility] Work Phone: Leukocyte esterase Test strip Ql (U) Negative Invalid Interpretation Code Negative [facility] Work Phone: OCCULT BLOOD-UR Negative Invalid Interpretation Code Negative [facility] Work Phone: pH (U) 6.0 [pH] 5.0 - 8.0 [facility] Work Phone: pH Test strip (U) 6.0 [pH] Invalid Interpretation Code 5.0 - 8.0 [facility] Work Phone: Specific gravity Refractometry Relative Density (U) 1.015 Invalid Interpretation Code 1.002-1.030 [facility] Work Phone: Vital Signs Date Time Vital Sign Value Performing Clinician Facility 06-16-2023 09:52-0500 Body height 165.[address] Lesli Burnham Work Phone: [facility] 06-16-2023 09:52-0500 Body mass index (BMI) [Ratio] 27.5 kg/m2 Dr. Lesli Burnham Work Phone: [facility] 06-16-2023 09:52-0500 Body weight 74.[address] Lesli Burnham Work Phone: [facility] 06-16-2023 09:52-0500 Diastolic blood pressure 78 mm[Hg] Dr. Lesli Burnham Work Phone: [facility] 06-16-2023 09:52-0500 Systolic blood pressure 124 mm[Hg] Dr. Lesli Burnham Work Phone: [facility] 05-06-2022 13:21-0400 Body height 170.2 cm Jose Wilkes MD Work Phone: [facility] 05-06-2022 13:21-0400 Body temperature 97.59 [degF] Jose Wilkes MD Work Phone: [facility] 05-06-2022 13:21-0400 Body weight 73 kg Jose Wilkes MD Work Phone: [facility] 05-06-2022 13:21-0400 Diastolic blood pressure 76 mm[Hg] Jose Wilkes MD Work Phone: [facility] 05-06-2022 13:21-0400 Heart rate 64 /min Jose Wilkes MD Work Phone: [facility] 05-06-2022 13:21-0400 SaO2% (BldA) [Mass fraction] 98 % Jose Wilkes MD Work Phone: [facility] 05-06-2022 13:21-0400 Systolic blood pressure 115 mm[Hg] Jose Wilkes MD Work Phone: [facility] 04-25-2017 08:21-0400 BMI (Body Mass Index) 26.32 kg/m2 Gareth ENCINAS [facility] Now [facility] Work Phone: 04-25-2017 08:21-0400 Body Temperature 97.8 [degF] Gareth ENCINAS [facility] Now [facility] Work Phone: 04-25-2017 08:21-0400 BP Diastolic 78 mm[Hg] Gareth ENCINAS [facility] Now [facility] Work Phone: 04-25-2017 08:21-0400 BP Systolic 116 mm[Hg] Gareth ENCINAS [facility] Now [facility] Work Phone: 04-25-2017 08:21-0400 Height 165.1 cm Gareth ENCINAS [facility] Now [facility] Work Phone: 04-25-2017 08:21-0400 Pulse (Heart Rate) 80 /min Gareth ENCINAS [facility] Work Phone: 04-25-2017 08:21-0400 Respiratory Rate 12 /min Gareth ENCINAS [facility] Work Phone: 04-25-2017 08:21-0400 Weight 71.76 kg Gareth ENCINAS [facility] Work Phone: 02-02-2016 10:08-0400 BSA (Body Surface Area) 1.77 m2 Garethkat ENCINAS [facility] Work Phone: Encounters Encounter Date Encounter Type Care Provider Facility Start: 04-05-2025 ambulatory Bess Dahl NP Facil ity:[facility] Start: 06-17-2024 End: 06-17-2024 ambulatory Lesli Malys Facility:[facility] Start: 04-21-2024 End: 04-21-2024 [facility] Start: 03-31-2024 ambulatory Lesli Maljaren Facility:[facility] Start: 03-16-2024 End: 03-16-2024 [facility]ulatory [facility] Start: 03-01-2024 Orders Only Jose Wilkes MD Work Phone: [facility] Comment on above: Nonruptured cerebral aneurysm (Primary Dx) Start: 08-22-2023 End: 08-22-2023 ambulatory LESLI A SIERRA Facility:[facility] Start: 06-16-2023 End: 06-16-[address] Lesli Burnham Work Phone: [facility] Work Phone: Start: 06-16-2023 End: 06-16-[address] Lesli Burnham Work Phone: [facility] Work Phone: Start: 06-16-2023 End: 06-16-[address] Lesli Burnham Work Phone: [facility] Work Phone: Start: 05-26-2023 End: 05-26-2023 ambulatory [facility] Work Phone: Start: 05-26-2023 End: 05-26-2023 Patient encounter procedure [facility] Work Phone: Start: 05-23-2023 End: 05-23-2023 ambulatory FLORINDA MARTINEZ Facility:[facility] Start: 04-09-2023 Registered Referred [facility] Work Phone: Start: 01-01-2023 End: 01-01-2023 ambulatory [facility] Work Phone: Start: 01-01-2023 End: 01-01-2023 Patient encounter procedure [facility] Start: 05-06-2022 End: 05-06-2022 ambulatory JOSE WILKES Facility:[facility] Start: 05-06-2022 End: 05-06-2022 Patient encounter procedure Jose Wilkes MD Work Phone: [facility] Comment on above: Nonruptured cerebral aneurysm (Primary Dx) Start: 04-17-2022 End: 04-17-2022 ambulatory [facility] Work Phone: Start: 04-17-2022 End: 04-17-2022 Patient encounter procedure [facility] Start: 03-15-2022 Registered Referred [facility] Start: 12-28-2021 End: 12-28-2021 Patient encounter procedure [facility] Procedures Date Procedure Procedure Detail Performing Clinician Start: 01-01-2023 Screening mammography Start: 04-17-2022 Magnetic resonance angiography of head without contrast Start: 12-28-2021 Screening mammography Start: 06-05-2019 Laboratory test resu lt abnormal Abnormal laboratory test Jose Wilkes MD Work Phone: Start: 02-02-2016 Adult health examination Well adult exam Gareth ENCINAS Start: 02-02-2016 Adult health examination Well adult exam Gareth ENCINAS Start: 01-31-2016 End: 01-31-2016 Urinalysis Gareth ENCINAS Plan of Treatment Date Care Activity Detail Author Start: 04-20-2025 Screening for malign ant neoplasm of colon [facility] Start: 10-06-2024 End: 10-06-2024 Patient encounter procedure 10/06/2024 8:30 AM EST Office Visit Rheumatology [address] [address] Florinda Martinez MD [address] [place] [address] 6m fu per walk up Rheumatology Comment on above: 6m fu per walk up Start: 05-04-2024 End: 03-31-2025 MRA Head vessels WO contrast MRA BRAIN WO IVCON Radiology Routine Nonruptured cerebral aneurysm Expected: 05/04/2024 (Approximate), Expires: 03/31/2025 [facility] Work Phone: Comment on above: Expected: 05/04/2024 (Approximate), Expires: 03/31/2025 Start: 04-04-2024 Influenza vaccination Influenza Vacc ine (#1) [facility] Start: 06-16-2023 Liquid based cervica l cytology screening [facility] Start: 04-04-2023 Covid-19 Vaccine ( season) Covid-19 Vaccine ( season) [facility] Start: 04-04-2022 Influenza vaccination INFLUENZA (#1) [facility] Start: 09-14-2021 COVID-19 VACCINE (4 - Booster for Moderna series) COVID-19 VACCINE (4 - Booster for Moderna series) [facility] Start: 08-04-2021 DEPRESSION ASSESSMENT DEPRESSION ASS ESSMENT [facility] Start: 02-12-2020 COLOGUARD (FIT-DNA) COLOGUARD (FIT-D NA) [facility] Start: 02-12-2020 Colonoscopy COLONOSCOPY [facility] Start: 02-12-2020 COLORECTAL CANCER SCREENING COLORECTAL CANCER SCREENING [facility] Start: 02-12-[address] COLONOGRAPHY [facility] Start: 02-12-2020 DIABETES SCREEN DIABETES SCREEN [facility] Start: 02-12-2020 Diabetes Screening Diabetes Screenin g [facility] Start: 02-12-2020 FECAL OCCULT BLOOD FECAL OCCULT BLOO D [facility] Start: 02-12-2020 Lipid panel Lipid Screening [facility] Start: 02-12-2020 LIPID SCREEN LIPID SCREEN [facility] Start: 02-12-2020 Screening for malign ant neoplasm of colon [facility] Start: 02-12-2020 SIGMOIDOSCOPY SIGMOIDOSCOPY [facility] Start: 04-25-2017 End: 04-25-2017 Appointment Appointment [facility] Work Phone: Start: 2015 Mammography MAMMOGRAM [facility] Start: 2015 Screening for malign ant neoplasm of breast Mammogram Screening [facility] Start: 2005 HPV TESTING HPV TESTING [facility] Start: 02-12-1996 PAP TESTING PAP TESTING [facility] Start: 02-12-1996 Screening for malign ant neoplasm of cervix Cervical Cancer Screening [facility] Start: 1994 Hepatitis B Vaccine (1 of 3 - 19+ 3-dose series) Hepatitis B Vaccine (1 of 3 - 19+ 3-dose series) [facility] Start: 1994 SHINGRIX VACCINE (1 of 2) SHINGRIX VACCINE (1 of 2) [facility] Start: 1994 Urine microalbumin profile [facility] Start: 1993 Anxiety Screening Anxiety Screening [facility] Start: 1993 Depression Screening Depression Scre ing [facility] Start: 1993 HEPATITIS C SCREENING HEPATITIS C [facility] Start: 1993 Hepatitis C screening Hepatitis C [facility] Start: 1993 HIV SCREENING HIV SCREENING [facility] Start: 1993 HIV screening HIV Screening [facility] Start: 1981 PNEUMOCOCCAL (1 - PCV) PNEUMOCOCCAL (1 - PCV) [facility] Start: 1975 HEPATITIS B (1 of 3 - 3-dose series) HEPATITIS B (1 of 3 - 3-dose series) [facility] End: 06-05-2023 Mra head w/o contrst material MRA BRAIN WO IVCON Radiology Routine Nonruptured cerebral aneurysm 1 Occurrences starting 05/06/2022 until 06/05/2023 [facility] Work Phone: Comment on above: 1 Occurrences starti ng 05/06/2022 until 06/05/2023 Path report.final Dx Spec [facility] Work Phone: [facility] Immunizations Immunization Date Immunization Notes Care Provider Rinku flores 05-14-2023 influenza, injectabl e, quadrivalent, preservative free [facility] 05-14-2023 influenza virus vaccine, unspecified formulation Jose Wilkes MD Work Phone: [facility] 06-06-2022 influenza, injectabl e, quadrivalent, preservative free [facility] 06-06-2022 influenza, seasonal, injectable [facility] 05-16-2021 influenza, injectabl e, quadrivalent, preservative free [facility] 05-16-2021 influenza, seasonal, injectable [facility] 05-16-2021 influenza, seasonal, injectable, preservative free Jose Wilkes MD Work Phone: [facility] 08-30-2020 Covid (Moderna) [facility] 08-02-2020 Covid (Moderna) [facility] 06-26-2020 influenza, injectabl e, quadrivalent, preservative free [facility] 06-26-2020 influenza, seasonal, injectable [facility] 06-26-2020 influenza, seasonal, injectable, preservative free Jose Wilkes MD Work Phone: [facility] 05-19-2019 influenza, injectabl e, quadrivalent, preservative free [facility] 05-19-2019 influenza, seasonal, injectable [facility] 05-11-2019 influenza virus vaccine, unspecified formulation Jose Wilkes MD Work Phone: [facility] 05-13-2018 influenza, injectabl e, quadrivalent, preservative free [facility] 05-13-2018 influenza, seasonal, injectable [facility] 05-21-2017 influenza, injectabl e, quadrivalent, preservative free [facility] 05-21-2017 influenza, seasonal, injectable [facility] 05-20-2016 influenza, injectabl e, quadrivalent, preservative free [facility] 05-20-2016 influenza, seasonal, injectable [facility] 05-04-2015 influenza, injectabl e, quadrivalent, preservative free [facility] 05-04-2015 influenza, seasonal, injectable [facility] 05-03-2014 influenza, injectabl e, quadrivalent, preservative free [facility] 05-03-2014 influenza, seasonal, injectable [facility] 06-20-2009 novel [id number], preservative-free, injectable Jose Wilkes MD Work Phone: [facility] Payers Date Payer Category Payer Self-pay [id number] 2022 [facility] [id number] 2022-Present [phone] [address] [place] [address] PPO [id number] 2022 Unknown [id number] 2019 Unknown [id number] 2019 Unknown MMO MMO [employer] [id number] 2019-Present [address] [place] [address] PPO [id number] Unknown [id number] Unknown [id number] 62 Unknown [id number] 62 Unknown [id number] 62 Unknown [id number] Social History Date Type Detail Facility Start: 01-15-2021 End: 06-16-2023 Tobacco smoking status NHIS Unknown if ever smoked [facility] Start: 1975 Sex Assigned At Female [facility] Start: 05-06-2022 Tobacco smoking stat us NHIS Never smoked tobacco [facility] Start: 05-06-2022 Tobacco use and exposure Smokeless tobacco non-user [facility] Start: 05-06-2022 End: 05-23-2023 Alcohol intake Current drinker of alcohol (finding) [facility] Start: 1975 Sex Assigned At Not on file [facility] Start: 04-26-2022 End: 05-06-2022 Exposure to SARS-CoV-2 (event) Not sure [facility] Start: 05-17-2023 End: 05-23-2023 History of Social function [facility] Start: 05-17-2023 End: 05-23-2023 Tobacco use panel [facility] Adult Depression Screening Assessment 0 [facility] Goals Date Patient Goal Desired Activity /State Progress note 08-22-2023 Note Date & Type Note Facility 08-22-2023 Note HNO ID: [id number] Author: GIRMA DENNY APRN.[employer] Service: ? Author Type: Nurse Practitioner Type: Progress Notes Filed: 08/22/2023 15:36 Note Text: Rheumatology CONSULTATION Date of Service: 08/22/2023 Patient: Sheeba Rose Medical Record: [id number] Primary Care Physician: Lesli Burnham DO Last Rheumatology visit: 05/23/2023 (with Florinda Martinez) Referring Provider: No referring provider defined for this encounter. History of Present Illness Sheeba Rose is a 48 year old White female who presents on 08/22/2023 for a virtual visit for evaluation of Joint Pain. Sheeba reports a current pain level of 4 (Other: See Comment). She describes the pain as Sharp, Shooting, Stiffness. The pain is Intermittent, and has lasted for 15 Minutes. Interventions tried include Positioning. Sheeba Rose has a past medical history of Aneurysm (HCC) and Arthritis.. ACTIVE PROBLEM LIST Abnormal Laboratory Test Cerebral Aneurysm Chronic Bilateral Thoracic Back Pain Hla B27 Positive History of Iritis Herniated Lumbar Disc Without Myelopathy C/o lateral Rib pain at night which occurs intermittently. Feels discomfort in the lower rib and sternum area when taking deep breath. Takes Ibuprofen as needed Hx of uveitis on and off. 4 flare ups so far over the few years. 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 C/o DIP pain which she attributes to her job. Reports Morning stiffness in low back, middle back, and hands which lasts for 10-15 minutes. Activities help with lower and middle back pain. Twisting the thoracic trunk helps with the pain. No rash, No IBD. Family hx Sister has psoriasis. Last Assessment and plan with Dr Martinez 05/22/23 Assessment: Chronic bilateral thoracic paravertebral pain. History of recurrent iritis Positive HLA-B27 Chronic mechanical lumbar back pain (history of herniated disks) History of brain (cerebral) aneurysm, which is being monitored Though she has a history of recurrent anterior uveitis and positive HLA-B27, today, there is no definite CLINICAL evidence of ankylosing spondylitis. Recommendations: Will check labs. Coordinate plan of care accordingly. Will obtain radiographs of sacroiliac joints, and cervical, thoracic, and lumbar spine. She may need advanced imaging of her spine in future (MRI scan of sacroiliac joints and spine: To look for evidence of nonradiographic axial spondyloarthritis). Please continue current medications for now. Final treatment recommendations will be based on completed evaluation and establishment of a diagnosis. Follow-up: She can see an ARUNA in 3 months and me in 6 months or next available. Denies any Chest pain, shortness of breath, history of pleural effusion or pericarditis, oral/nasal ulcers, photosensitivity, rash, history of DVT/PE/ANDor miscarriages, renal disease, seizures, dry eyes, dry mouth, cervical lymphadenopathy or parotid gland swelling, Raynaud's phenomenon, alopecia, psoriasis, history of iritis/uveitis or scleritis, nail pitting, dactylitis, history of sacroilitis or inflammatory bowel disease, arm weakness in raising arms above head, leg weakness in standing up from a seated position, skin tightening, dysphagia, changes in vision, scalp tenderness, jaw claudication, stiffness in shoulders/hip girdle, auricular or nasal chondritis Pain Evaluation Pain Evaluation 05/06/2022 05/17/2023 08/20/2023 08/22/2023 Pain Score 0 4 4 4 Location - Back-Upper Other: See Comment Other: See Comment Description - Sharp Sharp;Shooting;Stiffness Sharp;Shooting;Stiffness Duration (#) - 10 15 15 Duration (Timeframe) - Months Minutes Minutes Frequency - Intermittent Intermittent Intermittent Intervention - Exercise;Pillow support Positioning Positioning Patient-Entered Data PROMIS Assessments PROMIS Global Health - (T-Scores - the mean of general population = 50. Five points is a clinically meaningful difference.) 05/17/2023 08/20/2023 08/22/2023 Physical T-Score - 47.7 47.7 Mental T-Score 45.8 59 59 PROMIS CAT Pain Interference 05/17/2023 08/20/2023 PROMIS Pain Interference T-Score (range: 10 - 90) 56 (mild) 53 (within normal limits) PROMIS Pain Interference Percentile 27% 38% PROMIS CAT Fatigue 05/17/2023 08/20/2023 PROMIS Fatigue T-Score 51 (within normal limits) 49 (within normal limits) PROMIS Fatigue Percentile 46% 54% PROMIS PHYSICAL FUNCTION T-SCORE 05/17/2023 08/20/2023 PROMIS Physical Function T-Score 53 (within normal limits) 54 (within normal limits) Physical Function Percentile 62% 66% RAPID 3 [place] Activities of Daily Living 08/22/2023 8:09 AM 08/20/2023 8:17 PM 05/17/2023 5:14 PM Dress self? Without ANY difficulty Without ANY difficulty Without ANY difficulty Get in and out of bed? With SOME difficulty With SOME difficulty Without ANY difficulty Walk outdoors? Without ANY difficulty Without ANY diff (more content not included)... [facility] Progress note 05-23-2023 Note Date & Type Note Facility 05-23-2023 Note HNO ID: [id number] Author: Fabienne Aguilar RT(Jennifer) Service: ? Author Type: Technologist Type: Progress Notes Filed: 05/23/2023 10:13 AM Note Text: Radiology Service Progress Note PATIENT NAME: Sheeba Rose DATE OF SERVICE: May 23, 2023 TIME: 10:13 AM PATIENT IDENTITY VERIFICATION COMPLETED USING TWO (2) IDENTIFIERS: Name and Date of confirmed by patient verbally. FALL SCREENING: Has the patient had 2 falls in the last year or 1 fall with injury or currently using an Ambulatory Assistive Device (Walker, Cane, Wheelchair, Crutches, etc.)? No PATIENT GENDER DATA: Female. status: : No status: NO. PATIENT RELEVANT IMPLANT DATA REVIEWED: Not Applicable RADIOLOGY DEPARTMENT: General X-ray: Exam(s) Completed: Spine X-Ray(s): Cervical AP / LAT , Thoracic, and Lumbar AP / LAT / L5-S1 Pelvis X-Ray: sacroiliac joints PERIPHERAL IV DATA: Not applicable SIGNED BY: Fabienne Aguilar, (R) May 23, 2023 10:13 AM [facility] Progress note 05-23-2023 Note Date & Type Note Facility 05-23-2023 Note HNO ID: [id number] Author: Florinda Martinez MD Service: ? Author Type: Physician Type: Progress Notes Filed: 05/24/2023 8:16 PM Note Text: Referred by: Lesli Burnham DO [facility] [address] PCP: Lesli Burn[facility] [address] My final recommendations will be communicated back to the requesting physician by way of shared medical record or letter to the requesting physician by [place] mail. 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 Chief Complaint: Ms. Sheeba Roes presents today for evaluation of possible ankylosing spondylitis, in the setting of positive HLA-B27 and history of iritis. History of Present Illness: 05/22/2023 She has seen me in the past (06/01/2019, ~about 4 years ago), when there was no clinical suspicion of an autoimmune rheumatologic disease. She is now presenting with the chief complaint of bilateral paravertebral pain (costovertebral joints?) over the thoracic spine, which is worse when she wakes up and after taking deep breaths. She is able to sleep propped up on her couch. She had a spinal radiographs, which showed obvious abnormality/diagnosis. She is here today with concerns of possible ankylosing spondylitis in the setting of her past history of several episodes of iritis and positive HLA-B27. She denies pain in her sternum and low back (over sacroiliac joints or lumbar spine). She says that activity and deep breathing relieves the pain. She denies any pain in her cervical spine. She reports sitting at a desk frequently at her job with a poor posture. She reports taking NSAIDs before going to bed at night to relieve her pain. She notes having iritis twice in her left eye in the past two years. She denies any history of psoriasis of skin or nails, or inflammatory bowel disease. She has no history of plantar fascitis, Achilles tendinitis, dactylitis, or other enthesopathies. She reports morning stiffness that lasts about 20 minutes. She rates her thoracic back pain at an 8/10, when it is at its worst. She reports some movements aggravates her back pain. She reports a history of chronic low back pain, which has been attributed to bulging disks in the lumbar spine.. She denies any limitation of range of motion of her lumbar spine or neck. However, there is some limitation of range of motion during lateral rotation and lateral flexion. She complains of intermittent muscle weakness. She exercises regularly and does yard work frequently. She says that she is not as strong as she used to be which she attributes to getting older. In the past, before she saw me, she was diagnosed with mixed connective tissue disease and was on hydroxychloroquine. When I last saw her, there was no evidence of mixed connective tissue disease and I advised her to discontinue hydroxychloroquine. After that, she discontinued hydroxychloroquine without having any exacerbation of symptoms. She denies any family history of ankylosing spondylitis, psoriasis, or inflammatory bowel disease. She is vaccinated against COVID-19 and influenza. She is not vaccinated against pneumonia or shingles. 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 - stable MRA findings. Discussed risk management and warning symptoms. Plan for repeat MRA brain in 2 years for surveillance due to low risk profile and small anterior circulation aneurysm. The following portions of the patient's history were reviewed, confirmed, updated as necessary: allergies, current medications, past family history, past medical history, past social history, past surgical history, problem list, HPI and ROS obtained by others. Some elements may have been copied from a previous note and have been updated/reviewed where appropriate. All portions reflect current medical decision making from today. The clinical and radiographic findings as well as the risks, benefits, and alternatives of treatment have been reviewed in detail with the patients. Advised to call the office if symptoms worsen or new symptoms develop. Patient expressed understanding and is in agreement with plan. Jose Wilkes MD Rheumatology 06/01/2019 Assessment: Abnormal labs Muscle weakness H/o of brain aneurysm My CLINICAL suspicion for an autoimmune rheumatologic disease is low. There is no definite CLINICAL evidence of an underlying autoimmune rheumatologic disorder including rheumatoid arthritis, lupus, systemic sclerosis (scleroderma), polymyositis / dermatomyositis, or Sjogren syndrome. Recommendations: Check labs: CBC with diff, CMP, UA, 25([place])Vitamin D, TSH, RISHABH, NATALYA, CRP, ESR, CK Decrease Plaquenil to 12 or 13 pills a week (based (more content not included)... [facility] Progress note 05-06-2022 Note Date & Type Note Facility 05-06-2022 Note HNO ID: [id number] Author: Jose Wilkes MD Service: ? Author Type: Physician Type: Progress Notes Filed: 05/06/2022 2:15 PM Note Text: NEUROSURGERY CONSULT NOTE Jose Wilkes MD Date of visit: May 06, 2022 Patient Name: Ms.Michelle Sandy Rose Date of : 1975 Current Age: [age] year old Sex: female MRN/E# [id number] Last Office Visit: Visit date not found Chief Complaint: Patient presents with: New Patient HISTORY OF PRESENT ILLNESS : Sheeba Rose is a 47 year old, female who is Malys for neurosurgical evaluation. She has a history of arthritis and aneurysm. She denies smoking. 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 She was subsequently seen by Dr. Miranda and Dr. Garnett for this. Her last MRA was in [address] Chance said to follow up in 2 years. She has never had an angiogram or any interventions for this finding. Today she presents with new MRA imaging to establish care for R ICA aneurysm. She has been doing well. No new issues or neurological symptoms. She is here for evaluation and plan of care. Symptoms: none PREVIOUS CONSERVATIVE TREATMENTS: None PREVIOUS SURGERY: None PAIN EVALUATION 05/06/2022 1322 Pain Level: 0 PAST MEDICAL HISTORY Diagnosis Date Aneurysm (HCC) Arthritis PAST SURGICAL HISTORY Procedure Laterality Date PAST SURGICAL HISTORY OF x2 PAST SURGICAL HISTORY OF lasik vision correction FAMILY HISTORY Problem Relation Age of Onset Hypertension Father Cancer Father ALLERGIES No Known Allergies Current Outpatient Medications Medication Sig Dispense Refill MULTI-VITAMIN ORAL Take by mouth. Vit B Cmplx 3-FA-Vit C-Biotin tablet Take 1 tablet by mouth daily with breakfast. ergocalciferol 50,000 unit capsule (VITAMIN D2, DRISDOL) Take 50,000 Units by mouth once every month. hydrOXYchloroQUINE (PLAQUENIL) 200 mg tablet Take by mouth once daily. (Patient not taking: Reported on 05/06/2022) No current facility-administered medications for this visit. REVIEW OF SYSTEMS Review of Systems Constitutional: Negative for chills, fatigue and fever. HENT: Negative for congestion, drooling and tinnitus. Eyes: Negative for photophobia, redness and visual disturbance. Respiratory: Negative for cough, shortness of breath and wheezing. Cardiovascular: Negative for chest pain, palpitations and leg swelling. Gastrointestinal: Negative for constipation, diarrhea, nausea and vomiting. Endocrine: Negative for cold intolerance and heat intolerance. Genitourinary: Negative for difficulty urinating, dysuria, frequency and urgency. Musculoskeletal: Negative for back pain, gait problem and neck pain. Skin: Negative for rash and wound. Allergic/Immunologic: Negative for environmental allergies and food allergies. Neurological: Negative for dizziness, tremors, light-headedness and numbness. Hematological: Negative for adenopathy. Does not bruise/bleed easily. Psychiatric/Behavioral: Negative for agitation and confusion. The patient is not nervous/anxious. OBJECTIVE: BP 115/76 Pulse 64 Temp (Src) 97.6 (Temporal) Ht 5' 7 (1.70m) Wt 160 lb 15 oz (73.0kg) SpO2 98% BMI 25.20 kg/(m2). 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 - stable MRA findings. Discussed risk management and warning symptoms. Plan for repeat MRA brain in 2 years for surveillance due to low risk profile and small anterior circulation aneurysm. The following portions of the patient's history were reviewed, confirmed, updated as necessary: allergies, current medications, past family history, past medical history, past social history, past surgical history, problem list, HPI and ROS obtained by others. Some elements may have been copied from a previous note and have been updated/reviewed where appropriate. All portions reflect current medical decision making from today. The clinical and radiographic findings as well as the risks, benefits, and alternatives of treatment have been reviewed in detail with the patients. Advised to call the office if symptoms worsen or new symptoms develop. Patient expressed understanding and is in agreement with plan. Jose Wilkes MD [facility] History of Present illness Narrative 05-06-2022 Jose Wilkes MD - 05/06/2022 1:30 PM EDT Note Date & Type Note Facility 05-06-2022 History of Presen t illness Narrative Images from the original note were not included. NEUROSURGERY CONSULT NOTE Jose Wilkes MD Date of visit: May 06, 2022 Patient Name: Ms.Michelle Sandy Rose Date of : 1975 Current Age: [age] year old Sex: female MRN/E# [id number] Last Office Visit: Visit date not found Chief Complaint: Patient presents with: New Patient HISTORY OF PRESENT ILLNESS : Sheeba Rose is a 47 year old, female who is Malys for neurosurgical evaluation. She has a history of arthritis and aneurysm. She denies smoking. In 2018 she was incidentally found to have a right ICA aneurysm. She was subsequently seen by Dr. Miranda and Dr. Garnett for this. Her last MRA was in [address] Chance said to follow up in 2 years. She has never had an angiogram or any interventions for this finding. Today she presents with new MRA imaging to establish care for R ICA aneurysm. She has been doing well. No new issues or neurological symptoms. She is here for evaluation and plan of care. Symptoms: none PREVIOUS CONSERVATIVE TREATMENTS: None PREVIOUS SURGERY: None PAIN EVALUATION 05/06/2022 1322 Pain Level: 0 PAST MEDICAL HISTORY Diagnosis Date Aneurysm (HCC) Arthritis PAST SURGICAL HISTORY Procedure Laterality Date PAST SURGICAL HISTORY OF x2 PAST SURGICAL HISTORY OF lasik vision correction FAMILY HISTORY Problem Relation Age of Onset Hypertension Father Cancer Father ALLERGIES No Known Allergies Current Outpatient Medications Medication Sig Dispense Refill MULTI-VITAMIN ORAL Take by mouth. Vit B Cmplx 3-FA-Vit C-Biotin tablet Take 1 tablet by mouth daily with breakfast. ergocalciferol 50,000 unit capsule (VITAMIN D2, DRISDOL) Take 50,000 Units by mouth once every month. hydrOXYchloroQUINE (PLAQUENIL) 200 mg tablet Take by mouth once daily. (Patient not taking: Reported on 05/06/2022) No current facility-administered medications for this visit. REVIEW OF SYSTEMS Review of Systems Constitutional: Negative for chills, fatigue and fever. HENT: Negative for congestion, drooling and tinnitus. Eyes: Negative for photophobia, redness and visual disturbance. Respiratory: Negative for cough, shortness of breath and wheezing. Cardiovascular: Negative for chest pain, palpitations and leg swelling. Gastrointestinal: Negative for constipation, diarrhea, nausea and vomiting. Endocrine: Negative for cold intolerance and heat intolerance. Genitourinary: Negative for difficulty urinating, dysuria, frequency and urgency. Musculoskeletal: Negative for back pain, gait problem and neck pain. Skin: Negative for rash and wound. Allergic/Immunologic: Negative for environmental allergies and food allergies. Neurological: Negative for dizziness, tremors, light-headedness and numbness. Hematological: Negative for adenopathy. Does not bruise/bleed easily. Psychiatric/Behavioral: Negative for agitation and confusion. The patient is not nervous/anxious. OBJECTIVE: BP 115/76 Pulse 64 Temp (Src) 97.6 (Temporal) Ht 5' 7 (1.70m) Wt 160 lb 15 oz (73.0kg) SpO2 98% BMI 25.20 kg/(m^2). 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 - stable MRA findings. Discussed risk management and warning symptoms. Plan for repeat MRA brain in 2 years for surveillance due to low risk profile and small anterior circulation aneurysm. The following portions of the patient's history were reviewed, confirmed, updated as necessary: allergies, current medications, past family history, past medical history, past social history, past surgical history, problem list, HPI and ROS obtained by others. Some elements may have been copied from a previous note and have been updated/reviewed where appropriate. All portions reflect current medical decision making from today. The clinical and radiographic findings as well as the risks, benefits, and alternatives of treatment have been reviewed in detail with the patients. Advised to call the office if symptoms worsen or new symptoms develop. Patient expressed understanding and is in agreement with plan. Jose Wilkes MD documented in this encounter [facility] Evaluation note Note Date & Type Note Facility Evaluation note No assessment information availa ble [facility] Work Phone: Evaluation note Note Date & Type Note Facility Evaluation note Diagnosis Nonruptured cerebral aneurysm- Primary Cerebral aneurysm, nonruptured documented in this encounter [facility] Evaluation note Note Date & Type Note Facility Evaluation note Diagnosis Onset Date Encounter for routine gyneco logical examination noneactive [facility] Work Phone: Evaluation note Note Date & Type Note Facility Evaluation note Diagnosis Nonruptured cerebral aneurysm- Primary Cerebral aneurysm, nonruptured documented in this encounter [facility] Summary Purpose Family History No Family History Records Found Relationship Condition Age at Onset Recorded Date/T joaquin father Malignant neoplasm Unknown aunt Malignant neoplasm of breast Unknown Advance Directives No Advanced Directives Records Found Advance Directive Response Recorded Date/ Time Living Will No September 22, 018 3:02pm Power of Business Solution Analyst No September 22, 2017 3:02pm Advance Directive Response Recorded Date/ Time Living Will No September 22 2 018 2:02pm Power of Business Solution Analyst No September 22, 2017 2:02pm Chief Complaint and Reason for Visit Chief Complaint SCREENING 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 Reason for Visit Encounter for routin e gynecological examination Reason for Referral Specialty Diagnoses / Procedures Referred By Contac t Referred To Contact MR IMAGING Diagnoses Nonruptured cerebral aneurysm Procedures MRA BRAIN WO IVCON MRA, HEAD W/O CONTRAST Jose Wilkes MD [address] [address] Mr Imaging Referral ID Status Reason Start Date Expiration Date Visits Requested Visits Authorized [id number] Pending Review Auto-Generat ed Referral 05/06/2022 06/05/2023 1 1 Specialty Diagnoses / Procedures Referred By Contac t Referred To Contact MR IMAGING Diagnoses Nonruptured cerebral aneurysm Procedures MRA BRAIN WO IVCON MRA, HEAD W/O CONTRAST Leigh Mcconnell PA-C [address] [place] [address] [place] [id number] Referral ID Status Reason Start Date Expiration Date Visits Requested Visits Authorized [id number] New Request Auto-Generat ed Referral 05/04/2024 03/31/2025 1 1 Additional Source Comments INFORMATION SOURCE (unrecogn ized section and content) DATE CREATED AUTHOR 05/17/2020 [facility] DATE CREATED AUTHOR AUTHOR'S ORGANIZ ATION 05/08/2022 [facility] DATE CREATED AUTHOR AUTHOR'S ORGANIZ ATION 08/23/2023 [facility] DATE CREATED AUTHOR AUTHOR'S ORGANIZ ATION 03/13/2025 [facility] Source Comments (unrecognize d section and content) In the event this informatio n is protected by the Federal Confidentiality of Alcohol and Drug Abuse Patient Records regulations: The Federal rules restrict any use of the information to criminally investigate or prosecute any alcohol or drug abuse patient[facility] the event this information is protected by the Federal Confidentiality of Alcohol and Drug Abuse Patient Records regulations: The Federal rules restrict any use of the information to criminally investigate or prosecute any alcohol or drug abuse patient.[facility] Reason for Visit (unrecogniz ed section and content) Reason Comments New Patient Specialty Diagnoses / Procedures Referred By Contac t Referred To Contact Neurosurgery / NEUROSURGERY Diagnoses Aneurysm, carotid artery 2yr f/u with MRA-MRI will be done before appt. from saw Dr. 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 Lesli Burnham DO Family Provider Active Dr. Lesli Burnham DO Primary Care Provider Active Team Status: Inactive Member Role Status Dates Dr. Lesli Burnham DO Primary Care Provider Active Bess Dahl TECHNICAL SALES REPRESENTATIVES, TECHNICAL SALES REPRESENTATIVES-C Attending Provider, Referring Provider Active Team Status: Active Member Role Status Dates Dr. Lesli Burnham DO Primary Care Provider Active Health Risk Assessment Attending Provider, Referring Nikhil humphrey Active Team Status: Inactive Member Role Status Dates Dr. Lesli Burnham DO Primary Care Provider Active Dr. Florinda Martinez MD Attending Provider, Referri ng Provider Active Team Status: Active Member Role Status Dates Dr. Lesli Burnham DO Family Provider Active Team Status: Inactive Member Role Status Dates Dr. 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 This clinical summary was aggregated from multiple sources. Caution should be exercised in using it in the provision of clinical care. This summary normalizes information from multiple sources, and as a consequence, information in this document may materially change the coding, format and clinical context of patient data. In addition, data may be omitted in some cases. CLINICAL DECISIONS SHOULD BE BASED ON THE PRIMARY CLINICAL RECORDS. [facility] [employer] [facility]. provides no warranty or guarantee of the accuracy or completeness of information in this document.
== END | disposition home or self-care (01) ==
LOC: OPBI 06:58
PROVIDERS: PCP Family Medicine; Referring Provider Nurse Practitioner Women's Health; Visit Provider Nurse Practitioner Women's Health
DX: Z12.31 Encounter for screening mammogram for malignant neoplasm of breast (principal)
CPT/HCPCS: 77063; 77067